=== PATIENT | female | born 1935 | race Hispanic/Latino ===

== ENCOUNTER 2017-03-16 14:50 | Inpatient (IN) | payer MEDICARE, BC ==
[2017-03-16 15:47] VITALS: BMI 27.4
--- NOTE | 2017-03-16 15:51 | ED PDOC ---
Arrival/HPI - General Chief Complaint: Altered Mental Status Time Seen by Provider: 03/16/17 15:18 Historian: Patient, Spouse, Family - History of Present Illness Narrative History of Present Illness (Text): 03/16/17 15:47 82 year old female, whose history includes diabetes, presents to the Emergency department due to altered mental status beginning approximately 2 days ago. At baseline, patient is normally functioning, can ambulate on her own, and is talkative; however, two days age, spouse noticed the patient stop ambulating, stop eating, and experience a general mental status change. Today, the spouse noticed a tremor in the patient's hand and called emergency services. At this time, the patient is unaware why she was brought in to the Emergency department ; she is under the impression she was brought in for elevated blood pressure. As per spouse, patient has not hit her head or experienced any other trauma. Time/Duration: < week (2 day) Symptom Onset: Gradual Symptom Course: Unchanged Activities at Onset: Rest Context: Home Past Medical History - Provider Review Nursing Documentation Reviewed: Yes - Cardiac Hx Hypertension: Yes - Pulmonary Hx Respiratory Disorders: (unsure) - Neurological Hx Neurological Disorder: (unsure) - HEENT Hx HEENT Disorder: (unsure) - Renal Hx Renal Disorder: (unsure) - Endocrine/Metabolic Hx Endocrine Disorders: Yes Hx Diabetes Mellitus Type 2: Yes - Hematological/Oncological Hx Blood Disorders: (unsure) - Integumentary Hx Dermatological Disorder: (unsure) - Musculoskeletal/Rheumatological Hx Musculoskeletal Disorders: (unsure) - Gastrointestinal Hx Gastrointestinal Disorders: (unsure) - Genitourinary/Gynecological Hx Genitourinary Disorders: (unsure) - Psychiatric Hx Psychophysiologic Disorder: (unsure) Hx Substance Use: No Family/Social History - Physician Review Nursing Documentation Reviewed: Yes Family/Social History: Unknown Family HX Smoking Status: Unknown If Ever Smoked Hx Alcohol Use: No Hx Substance Use: No Allergies/Home Meds Allergies/Adverse Reactions: Allergies Penicillins Allergy (Verified 03/16/17 15:33) RASH Sulfa (Sulfonamide Antibiotics) Allergy (Verified 03/16/17 15:33) RASH Home Medications: Home Meds Medication Instructions Recorded Confirmed Hydrochlorothiazide/Valsarta 1 tab PO DAILY 02/02/13 03/16/17 [Diovan Hct 12.5 mg-160 mg] Levothyroxine Sodium 25 mcg PO DAILY 02/02/13 03/16/17 [Levothyroxine Sodium] Metformin Hydrochloride [Metformin] 500 mg PO BID 02/02/13 03/16/17 Omeprazole [Omeprazole] 20 mg PO DAILY 02/02/13 03/16/17 Rosuvastatin Calcium [Crestor] 10 mg PO DAILY 02/02/13 03/16/17 Review of Systems - Physician Review All systems were reviewed & negative as marked: Yes - Review of Systems Constitutional: absent: Fevers Respiratory: absent: Cough Neurological: Other (mental status change) Physical Exam Vital Signs Reviewed: Yes Vital Signs Temp Pulse Resp BP Pulse Ox 03/16/17 17:15 77 18 143/74 93 L 03/16/17 15:23 98.3 F 78 18 153/81 H 92 L Temperature: Afebrile Blood Pressure: Hypertensive Pulse: Regular Respiratory Rate: Normal Appearance: Positive for: Well-Appearing, Non-Toxic, Comfortable Pain Distress: None Mental Status: Positive for: Alert and Oriented X 3 (patient is unaware of why she is in the Emergency department) - Systems Exam Head: Present: Atraumatic, Normocephalic Pupils: Present: PERRL Extroacular Muscles: Present: EOMI Conjunctiva: Present: Normal Mouth: Present: Moist Mucous Membranes Neck: Present: Normal Range of Motion Respiratory/Chest: Present: Clear to Auscultation, Good Air Exchange. No: Respiratory Distress, Accessory Muscle Use Cardiovascular: Present: Regular Rate and Rhythm, Normal S1, S2. No: Murmurs Abdomen: Present: Normal Bowel Sounds. No: Tenderness, Distention, Peritoneal Signs Back: Present: Normal Inspection Upper Extremity: Present: Normal Inspection. No: Cyanosis, Edema Lower Extremity: Present: Normal Inspection. No: Edema Neurological: Present: GCS=15, CN II-XII Intact, Speech Normal, Other (left sided oral facial droop) Skin: Present: Warm, Dry, Normal Color. No: Rashes Psychiatric: Present: Alert, Oriented x 3, Normal Insight, Normal Concentration Medical Decision Making ED Course and Treatment: 03/16/17 15:52 Impression: 82 year old female presents to the Emergency department due to altered mental status. Plan: -- Head CT without contrast -- Chest xray -- EKG -- Urinalysis -- Urine culture -- Labs -- IV fluids -- Reassess and disposition Progress Notes: - Lab Interpretations Lab Results: 03/16/17 16:25 03/16/17 16:25 Lab Results 03/16/17 17:00: Urine Opiates Screen Negative, Urine Methadone Screen Negative, Ur Barbiturates Screen Negative, Ur Phencyclidine Scrn Negative, Ur Amphetamines Screen Negative, U Benzodiazepines Scrn Negative, U Oth Cocaine Metabols Negative, U Cannabinoids Screen Negative 03/16/17 17:00: Urine Color Yellow, Urine Appearance Clear, Urine pH 6.0, Ur Specific [place] >= 1.030, Urine Protein 100 H, Urine Glucose (UA) Negative, Urine Ketones 15 H, Urine Blood Negative, Urine Nitrate Negative, Urine Bilirubin Small H, Urine Urobilinogen 1.0 H, Ur Leukocyte Esterase Negative, Urine RBC 0 - 2, Urine WBC 2 - 5, Ur Epithelial Cells 3 - 4, Amorphous Sediment Moderate, Urine Bacteria Large 03/16/17 16:30: Free T4 1.15, Total T3 1.11, TSH 3rd Generation 2.95 03/16/17 16:25: Influenza Typ A,B (EIA) Negative for flu a/b 03/16/17 16:25: Sodium 142, Potassium 4.1, Chloride 102, Carbon Dioxide 27, Anion Gap 17, BUN 14, Creatinine 0.6 L, Est GFR ( Amer) > 60, Est GFR ( Non-Af Amer) > 60, Random Glucose 143 H, Calcium 9.7, Magnesium 1.7, Total Bilirubin 0.8, AST 16, ALT 25, Alkaline Phosphatase 73, Lactate Dehydrogenase 419, Total Creatine Kinase < 20 L, Troponin I < 0.01, Total Protein 7.5, Albumin 4.2, Globulin 3.4, Albumin/Globulin Ratio 1.2 03/16/17 16:25: PT 11.8, INR 1.03, APTT 29.3 03/16/17 16:25: WBC 13.5 H D, RBC 4.69, Hgb 14.2, Hct 45.0, MCV 95.9, MCH 30.3, MCHC 31.6, RDW 13.8, Plt Count 288, MPV 11.0, Gran % 83.1 H, Lymph % (Auto) 11.3 L, [place] % (Auto) 5.3, Eos % (Auto) 0.1 L, Baso % (Auto) 0.2, Gran # 11.24 H , Lymph # 1.5, [place] # 0.7 H, Eos # 0.0, Baso # 0.03 - RAD Interpretation Radiology Orders: 03/16/17 15:37 CHEST PORTABLE [RAD] Stat 03/16/17 15:44 HEAD W/O CONTRAST [CT] Stat - EKG Interpretation EKG Interpretation (Text): 03/16/17 16:03 EKG: Ordered, reviewed, and independently interpreted the EKG. Rate : 77 BPM Rhythm : NSR Interpretation : Left bundle branch block Interpreted by ED Physician: Yes Type: 12 lead EKG - Medication Orders Current Medication Orders: Ciprofloxacin (Cipro 400mg/200ml Dsw) 400 mg in 200 mls @ 133.3 mls/hr IVPB STAT STA PRN Reason: Protocol Stop: 03/16/17 20:20 Sodium Chloride (Sodium Chloride 0.9%) 1,000 mls @ 250 mls/hr IV .Q4H ONE Stop: 03/16/17 22:50 - Scribe Statement The provider has reviewed the documentation as recorded by the Scribe Ken Riggs All medical record entries made by the Scribe were at my direction and personally dictated by me. I have reviewed the chart and agree that the record accurately reflects my personal performance of the history, physical exam, medical decision making, and the department course for this patient. I have also personally directed, reviewed, and agree with the discharge instructions and disposition. Disposition/Present on Arrival - Present on Arrival Any Indicators Present on Arrival: No History of DVT/PE: No History of Uncontrolled Diabetes: No Urinary Catheter: No History of Decub. Ulcer: No History Surgical Site Infection Following: None - Disposition Have Diagnosis and Disposition been Completed?: Yes Diagnosis: Weakness, UTI (urinary tract infection) Disposition: HOSPITALIZED Disposition Time: 18:30 Condition: FAIR Discharge Instructions (ExitCare): Weakness (ED) Referrals: Adriana Moore, [Primary Care Provider] - Follow up with primary Forms: [employer] (Bahamian)
[2017-03-16 17:13] LABS: HEMOGLOBIN 14.2 g/dL (12.0-16.0); MEAN CELL VOLUME 95.9 fl (80.0-105.0); MEAN CORPUSCULAR HEMOGLOBIN 30.3 pg (25.0-35.0); MEAN CORPUSCULAR HGB CONC 31.6 g/dl (31.0-37.0); RBC 4.69 [, 10^6/uL] (3.5-6.1); RED CELL DISTRIBUTION WIDTH 13.8 % (11.5-14.5); WHITE BLOOD COUNT 13.5 [, 10^3/ul] (4.5-11.0)
[2017-03-16 17:14] LABS: BASO # 0.03 [, K/mm3] (0.0-2.0); BASO % 0.2 % (0.0-3.0); EOS % 0.1 % (1.5-5.0); GRAN # 11.24 (1.4-6.5); GRAN % 83.1 % (50.0-68.0); LYMPH # 1.5 (1.2-3.4); LYMPH % 11.3 % (22.0-35.0); MONO # 0.7 (0.1-0.6); MONO % 5.3 % (1.0-6.0)
[2017-03-16 17:20] LABS: ALB/GLOB RATIO 1.2 (1.1-1.8); ALBUMIN 4.2 g/dL (3.0-4.8); ALT/SGPT 25 U/L (7-56); AST/SGOT 16 U/L (14-36); BLOOD UREA NITROGEN 14 mg/dL (7-21); CALCIUM 9.7 mg/dL (8.4-10.5); GFR AFRICAN-AMERICAN > 60; GFR NON-AFRICAN AMERICAN > 60; MAGNESIUM 1.7 mg/dL (1.7-2.2)
--- NOTE | 2017-03-16 17:22 | CT ---
PROCEDURE: CT HEAD WITHOUT CONTRAST. HISTORY: r/o ICH COMPARISON: None available. TECHNIQUE: Axial computed tomography images were obtained through the head/brain without intravenous contrast. Radiation dose: Total exam DLP = 997 mGy-cm. This CT exam was performed using one or more of the following dose reduction techniques: Automated exposure control, adjustment of the mA and/or kV according to patient size, and/or use of iterative reconstruction technique. FINDINGS: HEMORRHAGE: No intracranial hemorrhage. BRAIN: No mass effect or edema. No atrophy or chronic microvascular ischemic changes. VENTRICLES: Unremarkable. No hydrocephalus. CALVARIUM: Unremarkable. PARANASAL SINUSES: Unremarkable as visualized. No significant inflammatory changes. MASTOID AIR CELLS: Unremarkable as visualized. No inflammatory changes. OTHER FINDINGS: None. IMPRESSION: No acute finding
[2017-03-16 17:27] LABS: URINE BILIRUBIN SMALL (NEGATIVE); URINE BLOOD NEGATIVE (NEGATIVE); URINE GLUCOSE (UA) NEGATIVE (NEGATIVE); URINE LEUKOCYTE ESTERASE NEGATIVE Leu/uL (NEGATIVE); URINE NITRATE NEGATIVE (NEGATIVE); URINE PROTEIN 100 mg/dL (<30 mg/dL)
[2017-03-16 17:29] LABS: URINE APPEARANCE CLEAR (CLEAR); URINE COLOR YELLOW (YELLOW)
[2017-03-16 17:29] LABS: TROPONIN I < 0.01 ng/mL
[2017-03-16 17:37] LABS: INR 1.03 (0.93-1.08); PROTHROMBIN TIME 11.8 SECONDS (9.4-12.5)
[2017-03-16 17:38] LABS: PARTIAL THROMBOPLASTIN TIME 29.3 Seconds (25.1-36.5)
[2017-03-16 17:44] LABS: BARBITURATES, UR NEGATIVE (NEGATIVE); BENZODIAZEPINES, UR NEGATIVE (NEGATIVE); OPIATES, UR NEGATIVE (NEGATIVE); PHENCYCLIDINE, UR NEGATIVE (NEGATIVE)
[2017-03-16 18:05] LABS: FREE T4 1.15 ng/dL (0.78-2.19)
[2017-03-16 18:14] LABS: URINE AMORPHOUS SEDIMENT MODERATE; URINE BACTERIA LARGE (NEG); URINE RBC 0 - 2 /hpf (0-2)
[2017-03-16 18:19] LABS: T3 1.11 ng/mL (0.97-1.69)
[2017-03-16] MEDS ORDERED: Ciprofloxacin 400mg/200ml D5W 400 MG/200 ML BAG IVPB STA (18:50)
[2017-03-16] MEDS ORDERED: Sodium Chloride 0.9% 1,000 ML IV ONE (18:51)
--- NOTE | 2017-03-16 21:48 | CP.PCM.HP ---
<Brandon Livingston - Last Filed: 03/16/17 21:40> History of Present Illness - History of Present Illness History of Present Illness: cc: altered mental status HPI: Patient is a 82yo female with past medical history of diabetes mellitus type 2, hypertension, hyperlipidemia, hypothyroidism and GERD that presents accompanied by family with reports of increased lethargy, weakness and altered mental status. Per patients son, over the course of the last couple months family had noticed a change in her personality and having become more forgetful as of late. Additionally, over the last several days patient had been bed bound , unable to care for herself and has had a lack of appetite. Family reports that she had been to her PMD, Dr. Head several weeks prior and was reportedly treated for a UTI. She had also been scheduled to see Dr. Wan ( hematology/oncology) for workup of possible leukemia. Family reported that when they came to visit today she appeared confused, weak and lethargic which prompted their visit to the emergency room. Patient denied chest pain, palpitations, SOB, abdominal pain, nausea, vomiting, fever, chills, cough. 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 Head Present on Admission - Present on Admission Any Indicators Present on Admission: No Past Patient History - Past Social History Smoking Status: Unknown If Ever Smoked - CARDIAC Hx Hypertension: Yes - PULMONARY Hx Respiratory Disorders: (unsure) - NEUROLOGICAL Hx Neurological Disorder: (unsure) - HEENT Hx HEENT Problems: (unsure) - RENAL Hx Chronic Kidney Disease: (unsure) - ENDOCRINE/METABOLIC Hx Endocrine Disorders: Yes Hx Diabetes Mellitus Type 2: Yes - HEMATOLOGICAL/ONCOLOGICAL Hx Blood Disorders: (unsure) - INTEGUMENTARY Hx Dermatological Problems: (unsure) - MUSCULOSKELETAL/RHEUMATOLOGICAL Hx Musculoskeletal Disorders: (unsure) - GASTROINTESTINAL Hx Gastrointestinal Disorders: (unsure) - GENITOURINARY/GYNECOLOGICAL Hx Genitourinary Disorders: (unsure) - PSYCHIATRIC Hx Psychophysiologic Disorder: (unsure) Hx Substance Use: No - SURGICAL HISTORY Hx Surgeries: (unsure) Meds Allergies/Adverse Reactions: Allergies Allergy/AdvReac Type Severity Reaction Status Date / Time Penicillins Allergy RASH Verified 03/16/17 15:33 Sulfa (Sulfonamide Allergy RASH Verified 03/16/17 15:33 Antibiotics) Physical Exam - Constitutional Appears: No Acute Distress, Unkempt, Confused - Head Exam Head Exam: ATRAUMATIC, NORMOCEPHALIC - Eye Exam Eye Exam: EOMI, PERRL - ENT Exam ENT Exam: Mucous Membranes Moist - Neck Exam Neck exam: Positive for: Normal Inspection. Negative for: Tenderness - Respiratory Exam Respiratory Exam: absent: Accessory Muscle Use, Rales, Rhonchi, Wheezes - Cardiovascular Exam Cardiovascular Exam: RRR, +S1, +S2. absent: Tachycardia, Gallop, JVD, Rubs - GI/Abdominal Exam GI & Abdominal Exam: Soft. absent: Distended, Firm, Guarding, Rebound, Rigid, Tenderness - Extremities Exam Extremities exam: Negative for: calf tenderness, pedal edema, tenderness - Neurological Exam Neurological exam: Alert, CN II-XII Intact Additional comments: awake, alert, oriented to person and place EOMI PERRL CN2-12 grossly intact motor function in RUE and RLE 5/5 motor function in LUE and LLE ~4/5 left-sided facial droop decreased sensation on the left side of the face gait deferred - Skin Skin Exam: Dry, Intact, Normal Color, Warm Results - Vital Signs Recent Vital Signs: Last Vital Signs Temp 98.3 F 03/16/17 15:23 Pulse 78 03/16/17 19:50 Resp 18 03/16/17 19:50 BP 156/69 H 03/16/17 19:50 Pulse Ox 94 L 03/16/17 19:50 - Labs Result Diagrams: 03/16/17 16:25 03/16/17 16:25 Assessment & Plan - Assessment and Plan (Free Text) Plan: 82yo female with history of DM type 2, hypertension, hyperlipidemia, hypothyroidism and GERD presents with altered mental status secondary to dementia vs CVA vs delirium due to UTI 1. Altered mental status -Likely secondary to dementia vs delirium however workup pending -CT Head revealed no acute intracranial abnormalities -CXR revealed no active disease -EKG reviewed; NSR with LBBB unchanged from prior EKG -B12, Folate, RPR pending -Leukocytosis of 13.5, afebrile -IVF hydration -Procalcitonin pending -Urine culture pending -TSH within normal limits -Urine drug screen negative -Urinalysis negative -Neurochecks q4h -Fall precautions -PT evaluation -Neurology consulted - Dr. Hart -EEG pending per neurology recommendations 2. Hypertension -Continue home antihypertensive 3. Hyperlipidemia -Continue home statin 4. Hypothyroidism -Continue home synthroid 5. DM type 2 -Consistent carb diet -Fingersticks ACHS -Humalog ISS low dose 6. GI/DVT prophylaxis -Protonix/Heparin SC Patient seen and case discussed/reviewed with attending, Dr. Yun <David Yun Q - Last Filed: 03/17/17 04:51> Results - Vital Signs Recent Vital Signs: Last Vital Signs Temp 98.3 F 03/16/17 15:23 Pulse 73 03/16/17 22:05 Resp 17 03/16/17 22:05 BP 136/70 03/16/17 22:05 Pulse Ox 95 03/16/17 22:05 - Labs Result Diagrams: 03/16/17 16:25 03/16/17 16:25 Labs: Laboratory Results - last 24 hr 03/16/17 22:34 POC Glucose (mg/dL) 134 H Attending/Attestation - Attestation I have personally seen and examined this patient.: Yes I have fully participated in the care of the patient.: Yes I have reviewed all pertinent clinical information: Yes Notes (Text): 03/17/17 04:48 I agree with the above mentioned note and exam by the resident with the addition of the followin82 y/o female with a PMHx as listed above is brought in to the ED by her family due to complaints of altered mentation. Family reports that over the last several months, her behavior has been changing compared to her baseline. She has been becoming more forgetful, unable to care for herself as she used to previously, having increasing difficulty with ambulation, increasing mechanical slip and falls, as well as even defecating on the sofa yesterday. Patient is admitted to rule out delirium vs dementia.
[2017-03-16] MEDS: Insulin Lispro (humaLOG) LOW Coverage SC SCH (22:41)
[2017-03-17 05:59] LABS: BASO # 0.02 [, K/mm3] (0.0-2.0); BASO % 0.2 % (0.0-3.0); EOS % 0.3 % (1.5-5.0); GRAN # 10.86 (1.4-6.5); GRAN % 83.2 % (50.0-68.0); HEMOGLOBIN 12.9 g/dL (12.0-16.0); LYMPH # 1.5 (1.2-3.4); LYMPH % 11.6 % (22.0-35.0); MEAN CELL VOLUME 96.2 fl (80.0-105.0); MEAN CORPUSCULAR HEMOGLOBIN 30.6 pg (25.0-35.0); MEAN CORPUSCULAR HGB CONC 31.9 g/dl (31.0-37.0); MEAN PLATELET VOLUME 10.8 fl (7.0-11.0); MONO # 0.6 (0.1-0.6); MONO % 4.7 % (1.0-6.0); RBC 4.21 [, 10^6/uL] (3.5-6.1); RED CELL DISTRIBUTION WIDTH 13.7 % (11.5-14.5); WHITE BLOOD COUNT 13.1 [, 10^3/ul] (4.5-11.0)
[2017-03-17 06:04] LABS: ALB/GLOB RATIO 1.1 (1.1-1.8); ALBUMIN 3.6 g/dL (3.0-4.8); ALT/SGPT 26 U/L (7-56); AST/SGOT 16 U/L (14-36); BLOOD UREA NITROGEN 13 mg/dL (7-21); GFR AFRICAN-AMERICAN > 60; GFR NON-AFRICAN AMERICAN > 60
[2017-03-17] MEDS: Insulin Lispro (humaLOG) LOW Coverage SC SCH ×4 (08:03→22:53)
[2017-03-17] MEDS: Levothyroxine 25 MCG TAB PO SCH (08:24)
[2017-03-17] MEDS: Aztreonam 1 Gm in NS 100mL 100 ML IVPB SCH ×2 (08:36→15:00)
--- NOTE | 2017-03-17 08:48 | RAD ---
HISTORY: r/o infiltrate COMPARISON: None FINDINGS: LUNGS: The lungs are clear. PLEURA: No significant pleural effusion identified, no pneumothorax apparent. CARDIOVASCULAR: Normal. OSSEOUS STRUCTURES: No significant abnormalities. VISUALIZED UPPER ABDOMEN: Normal. OTHER FINDINGS: None. IMPRESSION: No active pulmonary disease.
[2017-03-17] MEDS ORDERED: [UNRECOGNIZED DRUG - OTHER] PO SCH (10:00)
[2017-03-17] MEDS ORDERED: LEVOTHYROXINE SODIUM 25 MCG PO SCH (10:00)
[2017-03-17] MEDS ORDERED: Pneumococcal 23-Valent Vaccine IM ONE (11:30)
[2017-03-17] MEDS ORDERED: Influenza Vaccine 60 mcg/0.5 mL SYR (4YR UP) IM ONE (11:30)
--- NOTE | 2017-03-17 11:49 | CT ---
PROCEDURE: CT HEAD WITHOUT CONTRAST. HISTORY: code stroke COMPARISON: 03/16/2017. TECHNIQUE: Axial computed tomography images were obtained through the head/brain without intravenous contrast. Radiation dose: Total exam DLP = 790.95 mGy-cm. This CT exam was performed using one or more of the following dose reduction techniques: Automated exposure control, adjustment of the mA and/or kV according to patient size, and/or use of iterative reconstruction technique. FINDINGS: HEMORRHAGE: No intracranial hemorrhage. BRAIN: There is an asymmetric low-attenuation area in the right anterior limb of internal capsule and caudate head new since the prior examination. There is no mass, mass effect or abnormal extra-axial fluid collection.There are coarse atherosclerotic calcifications in the cavernous carotid arteries. VENTRICLES: There is mild age-related global parenchymal volume loss and proportionate enlargement of the ventricles and cortical sulci. CALVARIUM: The skull base and calvarium are normal. PARANASAL SINUSES: There is chronic pansinusitis. There is fluid in the sphenoid sinus. MASTOID AIR CELLS: There is fluid in bilateral mastoid air cells. OTHER FINDINGS: None. IMPRESSION: Focal asymmetric low density in the anterior limb of internal capsule and caudate head, new since the prior examination may represent acute stroke. Correlation with MRI is recommended. Fluid in the sphenoid sinus may represent acute sinusitis in the appropriate clinical setting. Important findings were discussed with nurse Alicea on the floor on 03/17/2017 at 11:45 a.m.
--- NOTE | 2017-03-17 12:26 | CT ---
PROCEDURE: CTA HEAD AND NECK WITH CONTRAST HISTORY: Stroke COMPARISON: Noncontrast head CT performed earlier the same day. TECHNIQUE: Initial noncontrast head CT was performed. Subsequently, CT angiogram of the head and neck were performed after the intravenous administration of 80 mL of Omnipaque 350. Contiguous 1.5mm thick images were obtained in the axial plane of the neck. 2-D coronal and sagittal MPR images were obtained. Imaging postprocessing was performed with 3-D images also obtained. A delayed contrast head CT was also obtained. This CT exam was performed using one or more of the following dose reduction techniques: Automated exposure control, adjustment of the mA and/or kV according to patient size, and/or use of iterative reconstruction technique. Contrast dose: 150 mL Omnipaque 350 Radiation dose: Total exam DLP = 404.05 mGy-cm. FINDINGS: HEAD: There are coarse atherosclerotic calcifications in the cavernous segments of the carotid arteries. Right: There is a 5 mm filling defect in the distal M1 segment with attenuation of the M2 branches. The intracranial internal carotid artery, and anterior cerebral arteries are widely patent. Left: The intracranial internal carotid artery, and anterior and middle cerebral arteries are widely patent. Posterior circulation: The visualized intracranial vertebral arteries, basilar artery and posterior cerebral arteries are widely patent. There is no intracranial saccular aneurysm. There is no abnormal enhancement on the postcontrast CT. NECK: There is a three vessel aortic arch. There is no stenosis at the origins of the great vessels at the level of the aortic arch. There are mild atherosclerotic calcifications at the carotid bifurcations and proximal internal carotid arteries. Right Carotid: On the right, the common carotid, internal carotid and external carotid arteries are widely patent. There is no hemodynamically significant stenosis in the internal carotid arteries by NASCET criteria. Left Carotid: On the left, the common carotid, internal carotid and external carotid arteries are widely patent.There is no hemodynamically significant stenosis in the internal carotid arteries by NASCET criteria. The vertebral arteries are widely patent. The left vertebral artery is dominant, an anatomic variant. IMPRESSION: 1. Approximately 5 mm intraluminal filling defect in the distal right M1 segment most compatible with an intraluminal thrombus with asymmetric attenuation of sylvian branches. 2. Normal caliber and widely patent anterior cerebral, left middle cerebral, posterior cerebral and vertebral arteries. 3.No evidence of hemodynamically significant stenosis in the internal carotid arteries by NASCET criteria Critical findings were discussed with Dr. Valdez Gooden on 03/17/2017 at 12:15 PA.
[2017-03-17] MEDS ORDERED: Eptifibatide 0.75 mg/ml 75 MG/100 ML BOTTLE IV SCH (12:45)
[2017-03-17] MEDS ORDERED: Eptifibatide 20 mg/10mL Inj IVP ONE ×2 (12:51)
[2017-03-17 13:12] LABS: FOLATE 16.1 ng/mL
--- NOTE | 2017-03-17 13:14 | CP.PCM.CON ---
<Grazyna Cotton - Last Filed: 03/17/17 13:09> History of Present Illness - History of Present Illness History of Present Illness: ICU Consult note for Vida Rashid PGY2 Reason for consult: Code stroke This is an 82yo Female with past medical history of DM2, HTN, HLD, hypothyroidism and GERD who was admitted for AMS. Patient was found to have UTI. This am, patient was found to be weak and flaccid on her L upper extremity. Code stroke was called. CT showed CVA in R basal ganglia, caudate and ant. internal capsule compatible with R MCA CVA. Neuro was notified. Since it is unknown when patient was last seen without deficits, TPA was not given. Patient was seen and examined at bedside. She was A&O x 3 and denies chest pain , shortness of breath, nausea/vomiting/diarrhea, numbness/tingling, fever or chills. She reports feeling thirsty, but denies weakness. Past medical history: DM2, HTN, HLD, hypothyroidism and GERD Past surgical history: Denies Home meds: As per MAR Allergies: Penicillin, Sulfa Social history: Former smoker (quit 10yrs ago), denies alcohol or drug use. 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 Huerta Review of Systems - Review of Systems Review of Systems: 12 point ROS as per HPI reviewed and are otherwise negative Past Patient History - Past Social History Smoking Status: Former Smoker - CARDIAC Hx Hypercholesterolemia: Yes Hx Hypertension: Yes Other/Comment: stress test 02/02/13 - PULMONARY Hx Respiratory Disorders: Yes Other/Comment: loose cough - NEUROLOGICAL Other/Comment: left facial droop, left side flaccid, tongue drooping to left side, new as of 2 1/2 days ago - HEENT Hx HEENT Problems: (unsure) - RENAL Hx Chronic Kidney Disease: (renal disease) - ENDOCRINE/METABOLIC Hx Endocrine Disorders: Yes Hx Diabetes Mellitus Type 2: Yes Hx Hypothyroidism: Yes - HEMATOLOGICAL/ONCOLOGICAL Other/Comment: pt has appt with dr fonseca on 03/18/17 dx cll referral by dr rcouch - INTEGUMENTARY Other/Comment: long thick fingernails and toenails and dry scaley skin to feet, dry skin to legs, r cw area of dry brown skin 1cm round - MUSCULOSKELETAL/RHEUMATOLOGICAL Hx Falls: Yes (past) - GASTROINTESTINAL Hx Gastrointestinal Disorders: Yes (gi bleed) Hx Gastroesophageal Reflux: Yes - GENITOURINARY/GYNECOLOGICAL Hx Urinary Tract Infection: Yes (tx by dr crouch few wks ago) Other/Comment: mammo 04/2013 - PSYCHIATRIC Hx Substance Use: No - SURGICAL HISTORY Hx Surgeries: No (none as per son kenton) Meds Allergies/Adverse Reactions: Allergies Allergy/AdvReac Type Severity Reaction Status Date / Time Penicillins Allergy RASH Verified 03/16/17 15:33 Sulfa (Sulfonamide Allergy RASH Verified 03/16/17 15:33 Antibiotics) - Medications Medications: Current Medications Atorvastatin Calcium (Lipitor) 40 mg PO DAILY [facility] Last Admin: 03/17/17 12:58 Dose: Not Given Heparin Sodium (Porcine) (Heparin) 5,000 units SC Q12 TERESA PRN Reason: Protocol Last Admin: 03/17/17 11:16 Dose: Not Given Aztreonam (Azactam 1 Gm) 100 mls @ 100 mls/hr IVPB Q8 TERSEA PRN Reason: Protocol Stop: 03/17/17 14:59 Last Admin: 03/17/17 08:36 Dose: 100 mls/hr Eptifibatide (Integrilin) 75 mg in 100 mls @ 5.987 mls/hr IV .[id number] TERESA; 1 MCG/KG/MIN PRN Reason: Protocol Insulin Human Lispro (Humalog Low) 0 units SC ACHS TERESA PRN Reason: Protocol Last Admin: 03/17/17 12:57 Dose: Not Given Levothyroxine Sodium (Synthroid) 25 mcg PO ACB [facility] Last Admin: 03/17/17 08:24 Dose: Not Given Non-Formulary Medication (Hydrochlorothiazide/Valsarta [Diovan Hct 12.5 Mg-160 Mg]) 1 tab PO DAILY [facility] Last Admin: 03/17/17 12:57 Dose: Not Given Pantoprazole Sodium (Protonix Inj) 40 mg IVP DAILY [facility] Last Admin: 03/17/17 11:18 Dose: 40 mg Physical Exam - Constitutional Appears: No Acute Distress - Head Exam Head Exam: ATRAUMATIC, NORMAL INSPECTION, NORMOCEPHALIC - Eye Exam Eye Exam: PERRL Pupil Exam: Miosis, PERRL - ENT Exam ENT Exam: Mucous Membranes Dry - Respiratory Exam Respiratory Exam: Clear to Auscultation Bilateral, NORMAL BREATHING PATTERN. absent: Rales, Rhonchi, Wheezes - Cardiovascular Exam Cardiovascular Exam: REGULAR RHYTHM, +S1, +S2. absent: Gallop, Rubs, Systolic Murmur - GI/Abdominal Exam GI & Abdominal Exam: Normal Bowel Sounds, Soft. absent: Rebound, Rigid, Tenderness - Extremities Exam Extremities exam: Positive for: normal inspection. Negative for: pedal edema - Neurological Exam Neurological exam: Alert, Oriented x3 - Expanded Neurological Exam Expanded Patient oriented to: person, place, time Cranial nerves: EOM's Intact: Normal, Facial Sensation: Abnormal Left Sensory exam: Lower Extremity Light Touch: Normal, Upper Extremity Light Touch: Abnormal Left Coma Scale Eye Opening: SPONTANEOUS Coma Scale Motor Response: OBEYS COMMANDS Coma Scale Verbal: Oriented Coma Scale Total: 15 - Psychiatric Exam Psychiatric exam: Normal Affect, Normal Mood - Skin Skin Exam: Dry, Warm Results - Vital Signs Recent Vital Signs: Last Vital Signs Temp 101 F H 03/17/17 11:08 Pulse 67 03/17/17 11:08 Resp 17 03/17/17 11:08 BP 160/95 H 03/17/17 11:08 Pulse Ox 97 03/17/17 08:20 - Labs Result Diagrams: 03/17/17 05:30 03/17/17 05:30 Labs: Laboratory Results - last 24 hr 03/16/17 03/17/17 03/17/17 22:34 01:17 05:30 WBC 13.1 H RBC 4.21 Hgb 12.9 Hct 40.5 MCV 96.2 MCH 30.6 MCHC 31.9 RDW 13.7 Plt Count 268 MPV 10.8 Gran % 83.2 H Lymph % (Auto) 11.6 L [place] % (Auto) 4.7 Eos % (Auto) 0.3 L Baso % (Auto) 0.2 Gran # 10.86 H Lymph # 1.5 [place] # 0.6 Eos # 0.0 Baso # 0.02 Sodium Potassium Chloride Carbon Dioxide Anion Gap BUN Creatinine Est GFR ( Amer) Est GFR (Non-Af Amer) POC Glucose (mg/dL) 134 H 140 H Random Glucose Calcium Total Bilirubin AST ALT Alkaline Phosphatase Total Protein Albumin Globulin Albumin/Globulin Ratio 01/03/17/17 03/17/17 05:30 07:31 12:23 WBC RBC Hgb Hct MCV MCH MCHC RDW Plt Count MPV Gran % Lymph % (Auto) [place] % (Auto) Eos % (Auto) Baso % (Auto) Gran # Lymph # [place] # Eos # Baso # Sodium 140 Potassium 3.3 L Chloride 105 Carbon Dioxide 23 Anion Gap 16 BUN 13 Creatinine 0.6 L Est GFR ( Amer) > 60 Est GFR (Non-Af Amer) > 60 POC Glucose (mg/dL) 125 H 128 H Random Glucose 141 H Calcium 9.0 Total Bilirubin 0.8 AST 16 ALT 26 Alkaline Phosphatase 61 Total Protein 6.9 Albumin 3.6 Globulin 3.3 Albumin/Globulin Ratio 1.1 Assessment & Plan - Assessment and Plan (Free Text) Assessment: This is an 82yo Female with past medical history of DM2, HTN, HLD, hypothyroidism and GERD who was admitted for AMS. Patient was found to have UTI. Patient was found weak on her L side with R gaze preference. Code stroke was called and was found to have R CVA. Plan: Neuro: R CVA of MCA CTA showed 5mm of intraluminal filling defect in distal R M1 segment compatible with intraluminal thrombus Neuro consulted- recommend Integrilin drip and repeat CT head in AM. Pt can be started on ASA and Plavic tomorrow Neurology spoke to Neurosurg for possible thrombectomy Pt not candidate for tPA due to unknown when pt last seen Neuro checks Physical therapy CV: Hx of HTN Permissive HTN in setting of CVA Hold home BP meds Hydralazine prn SBP >200 Cardio on consult Resp: Pt comfortable on NC Maintain spO2>90% Protective lung ventilation strategy HOB elevated, aspiration precaution GI: NPO Speech and swallow eval Heme: Hgb stable- no overt signs of bleeding Continue to monitor Nephro: Continue to monitor renal function and electrolytes and replace as needed ID: Leukocytosis, febrile (Tmax 101)- can be secondary to CVA urine culture negative ID consulted Pt on Aztreonam PCT pending Endo: Pt has hx of Hypothyroidism TSH within normal limits Hold Synthroid 25mcg until pt cleared for Po intake Gi ppx: Protonix DVT ppx: On integrilin drip Case seen, discussed and reviewed with attending. Vida Cotton PGY2 - Date & Time Date: 03/17/17 Time: 13:39 <Brent Reynolds - Last Filed: 03/17/17 14:54> Meds - Medications Medications: Current Medications Atorvastatin Calcium (Lipitor) 40 mg PO DAILY [facility] Last Admin: 03/17/17 12:58 Dose: Not Given Hydralazine HCl (Apresoline) 10 mg IVP Q6 PRN PRN Reason: Systolic Blood Pressure Aztreonam (Azactam 1 Gm) 100 mls @ 100 mls/hr IVPB Q8 TERESA PRN Reason: Protocol Stop: 03/17/17 14:59 Last Admin: 03/17/17 08:36 Dose: 100 mls/hr Eptifibatide (Integrilin) 75 mg in 100 mls @ 5.987 mls/hr IV .[id number] TERESA; 1 MCG/KG/MIN PRN Reason: Protocol Potassium Chloride (Potassium Chloride 10 Meq/100 Ml) 10 meq in 100 mls @ 100 mls/hr IVPB Q2H TERESA Stop: 03/17/17 16:14 Sodium Chloride (Sodium Chloride 0.9%) 1,000 mls @ 100 mls/hr IV .Q10H [facility] Insulin Human Lispro (Humalog Low) 0 units SC ACHS TERESA PRN Reason: Protocol Last Admin: 03/17/17 12:57 Dose: Not Given Levothyroxine Sodium (Synthroid) 25 mcg PO ACB [facility] Last Admin: 03/17/17 08:24 Dose: Not Given Non-Formulary Medication (Hydrochlorothiazide/Valsarta [Diovan Hct 12.5 Mg-160 Mg]) 1 tab PO DAILY [facility] Last Admin: 03/17/17 12:57 Dose: Not Given Pantoprazole Sodium (Protonix Inj) 40 mg IVP DAILY [facility] Last Admin: 03/17/17 11:18 Dose: 40 mg Results - Vital Signs Recent Vital Signs: Last Vital Signs Temp 101 F H 03/17/17 11:08 Pulse 67 03/17/17 11:08 Resp 17 03/17/17 11:08 BP 160/95 H 03/17/17 11:08 Pulse Ox 97 03/17/17 08:20 - Labs Result Diagrams: 03/17/17 05:30 03/17/17 05:30 Labs: Laboratory Results - last 24 hr 03/16/17 03/16/17 03/16/17 21:42 21:42 22:34 WBC RBC Hgb Hct MCV MCH MCHC RDW Plt Count MPV Gran % Lymph % (Auto) [place] % (Auto) Eos % (Auto) Baso % (Auto) Gran # Lymph # [place] # Eos # Baso # Sodium Potassium Chloride Carbon Dioxide Anion Gap BUN Creatinine Est GFR ( Amer) Est GFR (Non-Af Amer) POC Glucose (mg/dL) 134 H Random Glucose Calcium Total Bilirubin AST ALT Alkaline Phosphatase Total Protein Albumin Globulin Albumin/Globulin Ratio Vitamin B12 431 Folate 16.1 Procalcitonin < 0.05 L 03/17/17 03/17/17 03/17/17 01:17 05:30 05:30 WBC 13.1 H RBC 4.21 Hgb 12.9 Hct 40.5 MCV 96.2 MCH 30.6 MCHC 31.9 RDW 13.7 Plt Count 268 MPV 10.8 Gran % 83.2 H Lymph % (Auto) 11.6 L [place] % (Auto) 4.7 Eos % (Auto) 0.3 L Baso % (Auto) 0.2 Gran # 10.86 H Lymph # 1.5 [place] # 0.6 Eos # 0.0 Baso # 0.02 Sodium 140 Potassium 3.3 L Chloride 105 Carbon Dioxide 23 Anion Gap 16 BUN 13 Creatinine 0.6 L Est GFR ( Amer) > 60 Est GFR (Non-Af Amer) > 60 POC Glucose (mg/dL) 140 H Random Glucose 141 H Calcium 9.0 Total Bilirubin 0.8 AST 16 ALT 26 Alkaline Phosphatase 61 Total Protein 6.9 Albumin 3.6 Globulin 3.3 Albumin/Globulin Ratio 1.1 Vitamin B12 Folate Procalcitonin 03/17/17 03/17/17 07:31 12:23 WBC RBC Hgb Hct MCV MCH MCHC RDW Plt Count MPV Gran % Lymph % (Auto) [place] % (Auto) Eos % (Auto) Baso % (Auto) Gran # Lymph # [place] # Eos # Baso # Sodium Potassium Chloride Carbon Dioxide Anion Gap BUN Creatinine Est GFR ( Amer) Est GFR (Non-Af Amer) POC Glucose (mg/dL) 125 H 128 H Random Glucose Calcium Total Bilirubin AST ALT Alkaline Phosphatase Total Protein Albumin Globulin Albumin/Globulin Ratio Vitamin B12 Folate Procalcitonin Assessment & Plan - Assessment and Plan (Free Text) Plan: Patient seen and examined with resident, agree with note, with following additions exceptions: Patient is 82yo Female with PMHX of DM2, HTN, HLD, hypothyroidism and GERD who was admitted for AMS, found to have UTI. Patient was found weak on her L side with R gaze preference, code stroke was called and was found to have R CVA, not candidate for tPA as per neurology. CTA showed 5mm of intraluminal filling defect in distal R M1 segment compatible with intraluminal thrombusSeen by neurology, plan to transfer to MICU, start on integrillin drip for 14h, repeat CTH and then load with ASA, Plavix. Acute CVA UTI HTN HLD Hypothyroidism Recommend: - supp o2 as needed - follow up cultures, check procal - Rocephin IV - follow up neurology - Integrillin drip as per neurology - NPO - speech swallow eval, PT consult - ECHO - GI ppx - DVT ppx, SCDs - Monitor in MICU
--- NOTE | 2017-03-17 13:19 | CP.PCM.CON ---
History of Present Illness - History of Present Illness History of Present Illness: Mrs. Shields is an 82-year-old woman with a past medical history of hypertension, DM, hyperlipidemia, who was brought in yesterday with confusion and altered mental status and unknown last normal time. She gradually developed left side weakness. This morning, she was noted to have right gaze preference, and left arm flaccid paralysis and dense neglect of the left side. CT scan of the head showed caudate and basal ganglia infarcts. CTA of the head/ neck showed a right MCA, distal M1 occlusion. She was outside the 4.5 hour time window for IV tPA. I spoke with Dr. Foley, neurointerventionalist, and since the patient's last known time is unknown, she was not a good candidate for thrombectomy. The CT head showed that the infarct was advancing. She was unable to swallow, but we had decided on giving her antiplatelet therapy. Therefor, the decision was made to start Integrillin bolus and continue the drip while the patient is transferred to the ICU for close observation. Her current NIHSS= 12 Review of Systems - Review of Systems Systems not reviewed;Unavailable: Altered Mental Status Past Patient History - Past Social History Smoking Status: Former Smoker - CARDIAC Hx Hypercholesterolemia: Yes Hx Hypertension: Yes Other/Comment: stress test 02/02/13 - PULMONARY Hx Respiratory Disorders: Yes Other/Comment: loose cough - NEUROLOGICAL Other/Comment: left facial droop, left side flaccid, tongue drooping to left side, new as of 2 1/2 days ago - HEENT Hx HEENT Problems: (unsure) - RENAL Hx Chronic Kidney Disease: (renal disease) - ENDOCRINE/METABOLIC Hx Endocrine Disorders: Yes Hx Diabetes Mellitus Type 2: Yes Hx Hypothyroidism: Yes - HEMATOLOGICAL/ONCOLOGICAL Other/Comment: pt has appt with dr fonseca on 03/18/17 dx cll referral by dr crouch - INTEGUMENTARY Other/Comment: long thick fingernails and toenails and dry scaley skin to feet, dry skin to legs, r cw area of dry brown skin 1cm round - MUSCULOSKELETAL/RHEUMATOLOGICAL Hx Falls: Yes (past) - GASTROINTESTINAL Hx Gastrointestinal Disorders: Yes (gi bleed) Hx Gastroesophageal Reflux: Yes - GENITOURINARY/GYNECOLOGICAL Hx Urinary Tract Infection: Yes (tx by dr crouch few wks ago) Other/Comment: mammo 04/2013 - PSYCHIATRIC Hx Substance Use: No - SURGICAL HISTORY Hx Surgeries: No (none as per son kenton) Meds Allergies/Adverse Reactions: Allergies Allergy/AdvReac Type Severity Reaction Status Date / Time Penicillins Allergy RASH Verified 03/16/17 15:33 Sulfa (Sulfonamide Allergy RASH Verified 03/16/17 15:33 Antibiotics) - Medications Medications: Current Medications Atorvastatin Calcium (Lipitor) 40 mg PO DAILY [facility] Last Admin: 03/17/17 12:58 Dose: Not Given Heparin Sodium (Porcine) (Heparin) 5,000 units SC Q12 TERESA PRN Reason: Protocol Last Admin: 03/17/17 11:16 Dose: Not Given Aztreonam (Azactam 1 Gm) 100 mls @ 100 mls/hr IVPB Q8 TERESA PRN Reason: Protocol Stop: 03/17/17 14:59 Last Admin: 03/17/17 08:36 Dose: 100 mls/hr Eptifibatide (Integrilin) 75 mg in 100 mls @ 5.987 mls/hr IV .[id number] TERESA; 1 MCG/KG/MIN PRN Reason: Protocol Insulin Human Lispro (Humalog Low) 0 units SC ACHS TERESA PRN Reason: Protocol Last Admin: 03/17/17 12:57 Dose: Not Given Levothyroxine Sodium (Synthroid) 25 mcg PO ACB [facility] Last Admin: 03/17/17 08:24 Dose: Not Given Non-Formulary Medication (Hydrochlorothiazide/Valsarta [Diovan Hct 12.5 Mg-160 Mg]) 1 tab PO DAILY [facility] Last Admin: 03/17/17 12:57 Dose: Not Given Pantoprazole Sodium (Protonix Inj) 40 mg IVP DAILY [facility] Last Admin: 03/17/17 11:18 Dose: 40 mg Physical Exam - Constitutional Appears: Confused - Head Exam Head Exam: ATRAUMATIC, NORMAL INSPECTION, NORMOCEPHALIC - Eye Exam Eye Exam: EOMI, Normal appearance, PERRL - ENT Exam ENT Exam: Mucous Membranes Moist, Normal Exam - Neck Exam Neck exam: Positive for: Normal Inspection - Respiratory Exam Respiratory Exam: Clear to Auscultation Bilateral, NORMAL BREATHING PATTERN - Cardiovascular Exam Cardiovascular Exam: REGULAR RHYTHM, +S1, +S2 - GI/Abdominal Exam GI & Abdominal Exam: Normal Bowel Sounds, Soft. absent: Tenderness - Rectal Exam Rectal Exam: Deferred - Extremities Exam Extremities exam: Positive for: normal inspection - Back Exam Back exam: NORMAL INSPECTION - Neurological Exam Neurological exam: Alert, CN II-XII Intact Additional comments: Right gaze preference, left arm flaccid, left leg weak, left side yu- anesthesia and neglect, plantar response upgoing on the left. NIHSS = 12 - Psychiatric Exam Psychiatric exam: Normal Affect, Normal Mood Results - Vital Signs Recent Vital Signs: Last Vital Signs Temp 101 F H 03/17/17 11:08 Pulse 67 03/17/17 11:08 Resp 17 03/17/17 11:08 BP 160/95 H 03/17/17 11:08 Pulse Ox 97 03/17/17 08:20 - Labs Result Diagrams: 03/17/17 05:30 03/17/17 05:30 Labs: Laboratory Results - last 24 hr 03/16/17 03/17/17 03/17/17 22:34 01:17 05:30 WBC 13.1 H RBC 4.21 Hgb 12.9 Hct 40.5 MCV 96.2 MCH 30.6 MCHC 31.9 RDW 13.7 Plt Count 268 MPV 10.8 Gran % 83.2 H Lymph % (Auto) 11.6 L [place] % (Auto) 4.7 Eos % (Auto) 0.3 L Baso % (Auto) 0.2 Gran # 10.86 H Lymph # 1.5 [place] # 0.6 Eos # 0.0 Baso # 0.02 Sodium Potassium Chloride Carbon Dioxide Anion Gap BUN Creatinine Est GFR ( Amer) Est GFR (Non-Af Amer) POC Glucose (mg/dL) 134 H 140 H Random Glucose Calcium Total Bilirubin AST ALT Alkaline Phosphatase Total Protein Albumin Globulin Albumin/Globulin Ratio 03/17/17 03/17/17 03/17/17 05:30 07:31 12:23 WBC RBC Hgb Hct MCV MCH MCHC RDW Plt Count MPV Gran % Lymph % (Auto) [place] % (Auto) Eos % (Auto) Baso % (Auto) Gran # Lymph # [place] # Eos # Baso # Sodium 140 Potassium 3.3 L Chloride 105 Carbon Dioxide 23 Anion Gap 16 BUN 13 Creatinine 0.6 L Est GFR ( Amer) > 60 Est GFR (Non-Af Amer) > 60 POC Glucose (mg/dL) 125 H 128 H Random Glucose 141 H Calcium 9.0 Total Bilirubin 0.8 AST 16 ALT 26 Alkaline Phosphatase 61 Total Protein 6.9 Albumin 3.6 Globulin 3.3 Albumin/Globulin Ratio 1.1 Assessment & Plan (1) Ischemic stroke Assessment and Plan: Based on the CT head, the stroke is subacute and may have started over 24 hours ago. She is outside the time window for IV tPA, and is not an ideal candidate for thrombectomy. After discussion with Dr. Foley (neurointerventionalist), I recommend the followin. Transfer to ICU for close observation and Q1 hour neuro-checks. 2. MRI of the brain without contrast 3. Integrillin 90 mcg/Kg bolus dose, followed by 1 mcg/kg/min. Continue drip for 14 hours, and repeat CT head without contrast at 14 hours after initiation of Integrillin. IF there is no bleed on CT head and the patient can swallow, load her with aspirin 81 mg and Plavix 300 mg and stop Integrillin at that time. 4. Echocardiogram with bubble study 5. PT/OT eval 6. SCD for DVT Px 7. Fluids with NS at 100 mL/hr 8. Case management consult Thank you for this consultation. Status: Acute Priority: High
--- NOTE | 2017-03-17 13:54 | CARD ---
APPROVED REPORT EKG Measurement Heart [id number] <Conclusion> Normal sinus rhythm with APC's Left bundle branch block
--- NOTE | 2017-03-17 14:14 | MRI ---
PROCEDURE: MRI BRAIN WITHOUT CONTRAST HISTORY: stroke COMPARISON: None. TECHNIQUE: Multiplanar, multisequence MR images of the brain were obtained without intravenous contrast enhancement. FINDINGS: HEMORRHAGE: None DWI: There is an acute infarct in the right basal ganglia and bey radiata measuring 2 x 4 cm. This is in the distribution of the proximal right MCA. There are also a few small cortical infarcts seen more distally. There is no evidence of hemorrhage BRAIN PARENCHYMA: No mass effect or edema. No atrophy or chronic microvascular ischemic changes. VENTRICLES: Unremarkable. No hydrocephalus. CRANIUM: Unremarkable. ORBITS: Grossly unremarkable. PARANASAL SINUSES/MASTOIDS: Fluid is seen in the mastoid air cells bilaterally. There is also opacification of the sinuses. VASCULAR SYSTEM: Skull base flow voids intact. OTHER FINDINGS: None. IMPRESSION: There is an acute infarct in the right basal ganglia and bey radiata measuring 2 x 4 cm. This is in the distribution of the proximal right MCA. There are also a few small cortical infarcts seen more distally. There is no evidence of hemorrhage
--- NOTE | 2017-03-17 14:19 | MRI ---
PROCEDURE: Magnetic Resonance Angiography Brain HISTORY: ams COMPARISON: None available. TECHNIQUE: 3D time of flight MR angiography of the intracranial arteries was performed. Rotating maximum intensity projection images were generated. FINDINGS: INTERNAL CAROTID ARTERIES: Unremarkable. The skull base, petrous, cavernous and supraclinoid segments are bilaterally widely patient. ANTERIOR CEREBRAL ARTERIES: Unremarkable. A1 and A2 segments are widely patent. Smaller distal branches unremarkable, as visualized. MIDDLE CEREBRAL ARTERIES: There is a focal short segment occlusion in the proximal right middle cerebral artery. This corresponds to the infarcts seen on the MRI exam. There is also diminished flow in the distal branches POSTERIOR CIRCULATION: Basilar Artery: Unremarkable. Distal Vertebral Arteries: Unremarkable. Posterior Cerebral Arteries: Unremarkable. Posterior Inferior Cerebellar Arteries: Unremarkable. ANEURYSM/ VASCULAR MALFORMATIONS: None. OTHER FINDINGS: None. IMPRESSION: There is a focal short segment occlusion in the proximal right middle cerebral artery. This corresponds to the infarcts seen on the MRI exam
--- NOTE | 2017-03-17 14:34 | MRI ---
PROCEDURE: MR Angiography of the neck without contrast HISTORY: AMS COMPARISON: None available. TECHNIQUE: 3D [id number] angiography of the neck was performed. Rotating maximum intensity projection images of the cervical carotid and vertebral arteries were generated. The origins of the common carotid arteries were not visualized, which is a limitation inherent to the non-contrast time of flight technique. FINDINGS: RIGHT CAROTID ARTERIES: Common Carotid Artery: Normal. Carotid Bifurcation: Normal. Internal Carotid Artery:Normal. External Carotid Artery (proximal branches): Normal. LEFT CAROTID ARTERIES: Common Carotid Artery: Normal. Carotid Bifurcation: Normal. Internal Carotid Artery:Normal. External Carotid Artery (proximal branches): Normal. VERTEBRAL ARTERIES: Right Vertebral Artery: Normal. Left Vertebral Artery: Normal. OTHER FINDINGS: None. IMPRESSION: No significant stenosis
[2017-03-17] MEDS: Eptifibatide 0.75 mg/ml 75 MG/100 ML BOTTLE IV SCH (14:40)
[2017-03-17] MEDS: Sodium Chloride 0.9% 1,000 ML IV SCH (14:50)
--- NOTE | 2017-03-17 15:17 | PCM.RRT ---
<Duglas Bal - Last Filed: 03/17/17 15:14> COIL WINDER Nurse Assessment - Situation Date: 03/17/17 Time COIL WINDER was called: 10:58 COIL WINDER Responder Arrival Time: 10:58 COIL WINDER Location:: 2A Room Number: 243-1 COIL WINDER Reason for Call: Possible Stroke (Code Stroke ) COIL WINDER Called By: Physician (Dr. Garcia) - Respiratory Oxygen Delivery Method: Room Air, Nasal Cannula @L/min (3L) I.Reason for COIL WINDER - A) Acute Change in Patient: (Select all that apply): Staff member or family is worried about patient ( Possible stroke, left sided flaccid weakness/paralysis) Subjective: House Physician Resident Duglas Bal, PGY-2 IM Code Stroke Note Code Stroke called at 1058 by medical team at bedside, responded immediately. As per Hospitalist attending, Dr. Garcia, patient on presentation had rightward head turning and gaze preference, left sided flaccid weakness/ paralysis, concerning for stroke; pt only admitted for AMS as per ED so Code stroke called. As per primary team, reported by ED that there was longstanding left-sided weakness, but as per pt's nurse, who spoke with pt's son and pt's PMD (Dr. Head), this was a new finding in the last 2 days, and was one of the reasons patient was sent to the hospital by the PMD. Patient is awake and alert, but lethargic, during exam. Oriented to self, place, and year, mildly slurred speech, clearly favors head turned to right, able to lift right arm and move right leg, but only minimal left leg movement and no left arm movement appreciated. NIHSS assessment performed by hospitalist team resident, Dr. Simon (please see attached NIHSS section), concerning for stroke with score of 14. Case discussed with Neurologist food concession manager for Code Stroke, Dr. Gooden, who reports that given presentation, this is not a true Code Stroke, well out of window for possible tPA, and instructed to cancel the code stroke. As per Dr. Gooden, head CT without contrast was to be obtained, and if negative for acute bleed, CT angio of head and neck was to be obtained. Patient was transported to CT, head without contrast scan was obtained, not notable for acute bleed, so CT angio head and neck obtained. As per Radiologist, head CT concerning for Right MCA stroke, and CTA was notable for intraluminal filling defect most compatible with thrombus of Right MCA. As per Dr. Gooden, patient was started on integrillin drip and transferred to ICU, and he will discuss with Interventional Neurologists at outside facilities possibility of transfer for mechanical thrombectomy. Patient seen and reviewed with Hospitalist attending, Dr. Garcia, and Neurologist following the patient, Dr. Gooden. - Neurological Status Other (Please specify): Awake and alert but lethargic, follows most commands and oriented x3 - Respiratory Oxygen Delivery Method: Nasal Cannula @L/min (3L) - Constitutional Appears: Non-toxic, No Acute Distress Additional Comments: Lethargic - Head Head Exam: ATRAUMATIC Additional Comments: head rotated to right, no movement away from right rotation - Eyes Additional Comments: gaze preference to the right, complete hemianopia - Respiratory Exam Respiratory Exam: Clear to Ausculation Bilateral, NORMAL BREATHING PATTERN. absent: Accessory Muscle Use, Chest Wall Tenderness, Decreased Breath Sounds - Cardiovascular Exam Cardiovascular Exam: REGULAR RHYTHM, RRR, +S1, +S2. absent: Bradycardia, Tachycardia, Irregular Rhythm, +S4 - GI/Abdominal Exam GI & Abdominal Exam: Soft. absent: Distended - Neurological Exam Neurological Exam: Alert, Awake, Oriented x3 (self, location, year) Additional exam: -Gait deferred -able to follow commands for moving right upper and lower extremity, minimal left lower extremity movement -no left upper extremity movement -absent/neglected left visual field (when holding dentures cup left lateral and midline in front of gaze, completely missed location and put hand as far right as possible) -Mildly slurred but otherwise intact speech -Awake and alert but somewhat lethargic - Extremities Exam Additional comments: No pitting edema appreciated in bilateral LE movement in extremities as listed in Neuro exam equal bilateral muscle tone in upper and lower extremities Plan - Assessment of Findings&Treatment Plan Head CT without contrast and CT angio head/neck obtained, reviewed by Neurologist and Radiologist; concerning for Right MCA infarct 2/2 thrombus Started on integrillin drip and transferred to ICU; transition to dual antiplatelets as per Neurology's plan Pending possible transfer to another facility for mechanical thrombectomy; Neurology to discuss with Interventional Neurologist at outside facility Permissive HTN to allow adequate perfusion through collateral vessels, HTN 180- 220 acceptable for now as per Neurology NIHSS Scale ([place]) Time Performed: 10:58 - How Severe is the Stoke Baseline Level of Consciousness: 0=Alert LOC to Questions: 0=Both comments correct LOC to commands: 0=Obeys both correctly Best Gaze: 2=Forced deviation Visual: 2=Complete hemianopia Facial: 0=Normal Motor Arm - Left: 4=No movement Motor Arm - Right: 0=No drift Motor Leg - Left: 3=No effort against gravity (falls immediately) Motor Leg - Right: 0=No drift Limb Ataxia: 0=Absent Sensory: 1=Mild to moderate loss Best Language: 0=No aphasia Dysarthia: 0=Normal articulation Extinction & Inattention (Neglect): 2=Profound neglect(does not recognize own hand or orients to one side) Score: 14 Risk Level: Mod Stroke Risk <Logan Garcia - Last Filed: 03/18/17 07:23> COIL WINDER Nurse Assessment - Vital Signs Vital Sign: Rapid Response Vital Sign Blood Pressure 160/95 Pulse Rate 73 Respiratory Rate 13 Temperature 101 F Oxygen Saturation 96 - Vital Signs at end of COIL WINDER Vital Signs at end of COIL WINDER: Rapid Response End Vital Sign Blood Pressure 175/78 Pulse Rate 77 Respiratory Rate 18 Temperature 99.9 F O2 Sat by Pulse Oximetry 98 Attending/Attestation - Attestation I have personally seen and examined this patient.: Yes I have fully participated in the care of the patient.: Yes I have reviewed all pertinent clinical information, including history, physical exam and plan: Yes Notes (Text): 03/18/17 07:21 Attending note; Patient seen and examined during code stroke. Patient was not able to move left arm and left leg. Patient is alert and awake and able to answer a few questions. Patient had a significant right gaze. Face stone towards the right side. Able to move right upper arm. Patient was immediately sent to CAT scan. Showed new infarct. CT angios showed acute thrombus. Case discussed with neurology in detail. Patient failed swallow evaluation. Patient is confused. Started on Integrilin drip. Case discussed with nonfarm animal caretaker. Patient was transferred to ICU for close observation. Family informed by residents on nursing staff.
--- NOTE | 2017-03-17 16:58 | CARD ---
APPROVED REPORT EKG Measurement Heart [id number] <Conclusion> Normal sinus rhythm Left bundle branch block Abnormal ECG
[2017-03-17 17:31] LABS: LDL CHOLESTEROL 117 mg/dL (0-129)
[2017-03-17 17:32] LABS: HDL CHOLESTEROL 24 mg/dL (29-60)
[2017-03-17 17:34] LABS: RAPID PLASMA REAGIN NONREACTIVE (NONREACTIVE)
--- NOTE | 2017-03-17 19:44 | CP.PCM.PN ---
<Felicity Simon - Last Filed: 03/17/17 19:32> Subjective - Date & Time of Evaluation Date of Evaluation: 03/17/17 Time of Evaluation: 07:30 - Subjective Subjective: Mareshelley Aurora DO PGY1 - Internal Medicine Progress Note Patient seen and examined at bedside. Patient was admitted late yesterday evening, for altered mental status and lethargy. On initial encounter, patient reported lethargy, fatigue, and generalized weakness. She denies any chest pain , abdominal pain, nausea, vomiting, diarrhea, constipation, dysuria, hematuria, urgency, frequency, focal weakness/numbness. Later this morning, patient was noted to have right preferential gaze, with profound left sided weakness. Code stroke was called and neurology was informed. Family and PCP were contacted for further histor. Family reports that the last time she was seen behaving normally was two and a half days ago, and PCP reported that she was last seen in his office in January. Objective - Vital Signs/Intake and Output Vital Signs (last 24 hours): Temp Pulse Resp BP Pulse Ox 98.2 F 74 22 172/81 H 97 03/17/17 16:00 03/17/17 16:00 03/17/17 16:00 03/17/17 16:00 03/17/17 16:00 Intake and Output: 03/17/17 03/18/17 18:59 06:59 Intake Total 720 Balance 720 - Medications Medications: Current Medications Atorvastatin Calcium (Lipitor) 40 mg PO DAILY [facility] Last Admin: 03/17/17 12:58 Dose: Not Given Hydralazine HCl (Apresoline) 10 mg IVP Q6 PRN PRN Reason: Systolic Blood Pressure Eptifibatide (Integrilin) 75 mg in 100 mls @ 5.987 mls/hr IV .[id number] TREESA; 1 MCG/KG/MIN PRN Reason: Protocol Last Admin: 03/17/17 14:40 Dose: 5.987 mls/hr Sodium Chloride (Sodium Chloride 0.9%) 1,000 mls @ 100 mls/hr IV .Q10H [facility] Last Admin: 03/17/17 14:50 Dose: 100 mls/hr Insulin Human Lispro (Humalog Low) 0 units SC ACHS [facility] PRN Reason: Protocol Last Admin: 03/17/17 16:45 Dose: Not Given Levothyroxine Sodium (Synthroid) 25 mcg PO ACB [facility] Last Admin: 03/17/17 08:24 Dose: Not Given Non-Formulary Medication (Hydrochlorothiazide/Valsarta [Diovan Hct 12.5 Mg-160 Mg]) 1 tab PO DAILY [facility] Last Admin: 03/17/17 12:57 Dose: Not Given Pantoprazole Sodium (Protonix Inj) 40 mg IVP DAILY [facility] Last Admin: 03/17/17 11:18 Dose: 40 mg - Labs Labs: 03/17/17 05:30 03/17/17 05:30 PT 11.8 SECONDS (9.4-12.5) 03/16/17 16:25 INR 1.03 (0.93-1.08) 03/16/17 16:25 APTT 29.3 Seconds (25.1-36.5) 03/16/17 16:25 - Constitutional Appears: Non-toxic, No Acute Distress - Head Exam Head Exam: ATRAUMATIC, NORMOCEPHALIC - Eye Exam Eye Exam: Normal appearance, PERRL. absent: EOMI (Leftward gaze palsy/neglect) - ENT Exam ENT Exam: Mucous Membranes Moist - Neck Exam Neck Exam: Normal Inspection Additional comments: No audible bruits - Respiratory Exam Respiratory Exam: Clear to Ausculation Bilateral, NORMAL BREATHING PATTERN - Cardiovascular Exam Cardiovascular Exam: REGULAR RHYTHM, +S1, +S2 - GI/Abdominal Exam GI & Abdominal Exam: Soft. absent: Tenderness - Neurological Exam Neurological Exam: Alert, Awake, Oriented x3 Neuro motor strength exam: Left Upper Extremity: 0, Right Upper Extremity: 5, Left Lower Extremity: 2/1, Right Lower Extremity: 5 Additional comments: Left sided hemineglect. Intact facial symmetry. LUE and LLE with profound weakness and implaired sensation to light touch - Psychiatric Exam Psychiatric exam: Flat Affect - Skin Skin Exam: Dry, Intact Assessment and Plan - Assessment and Plan (Free Text) Assessment: Plan: 82yo female with history of DM type 2, hypertension, hyperlipidemia, hypothyroidism and GERD presents with altered mental status secondary to dementia vs CVA vs delirium due to UTI; code stroke called when patient was noted to have profound left sided weakness, not previously noted 1. Altered mental status -Likely secondary to evolving CVA; possibly confounding delirium 2/2 incompletely teated UTI -CT Head in ER revealed no acute intracranial abnormalities; repeat CT head today shows interval infarct in right basal ganglia -CTA head/neck showed right MCA, distal M1 occlusion -As symptoms appeared to start several days ago, patient was not candiate for tPA or thombectomy per neuro -Started integrilin drip after bolus, per neuro; transferred to ICU -Neurochecks Q1 -B12 and folate WNL; RPR negative -Leukocytosis of 13.1, afebrile -IVF hydration -Procalcitonin negative -Urine culture negative -Fall precautions -NPO, pending swallow eval after 14 hours of integrillin; if passes will switch to PO antiplatelets -Neurology on consult; appreciate recs 2. Hypertension -Hold oral antihypertensives -Start PRN hydralazine for SBP >180 3. Hyperlipidemia -Hold oral medications while NPO; will resume home statin when patient is more stable and tolerating PO 4. Hypothyroidism -Hold oral medications while NPO; will resume home synthroid when patient is more stable and tolerating PO 5. DM type 2 -NPO until passes swallow eval; carb consistent diet when tolerating PO -Fingersticks ACHS -Humalog ISS low dose 6. GI/DVT prophylaxis -Protonix/Heparin SC Patient seen and case discussed/reviewed with attending, Dr. Garcia <Logan Garcia - Last Filed: 03/18/17 14:13> Objective - Vital Signs/Intake and Output Vital Signs (last 24 hours): Temp Pulse Resp BP Pulse Ox 97.5 F L 69 23 129/73 93 L 03/18/17 12:00 03/18/17 10:00 03/18/17 10:00 03/18/17 10:00 03/18/17 10:00 Intake and Output: 03/18/17 03/18/17 06:59 18:59 Intake Total 1560 Output Total 250 Balance 1310 - Medications Medications: Current Medications Aspirin (Ecotrin) 81 mg PO DAILY [facility] Atorvastatin Calcium (Lipitor) 40 mg PO DAILY [facility] Last Admin: 03/18/17 10:33 Dose: 40 mg Clopidogrel Bisulfate (Plavix) 75 mg PO DAILY [facility] Hydralazine HCl (Apresoline) 10 mg IVP Q6 PRN PRN Reason: Systolic Blood Pressure Insulin Human Lispro (Humalog Low) 0 units SC ACHS [facility] PRN Reason: Protocol Last Admin: 03/18/17 12:28 Dose: 1 units Levothyroxine Sodium (Synthroid) 25 mcg PO ACB [facility] Last Admin: 03/17/17 08:24 Dose: Not Given Magnesium Oxide (Mag-Ox) 400 mg PO BID [facility] Non-Formulary Medication (Hydrochlorothiazide/Valsarta [Diovan Hct 12.5 Mg-160 Mg]) 1 tab PO DAILY [facility] Last Admin: 03/17/17 12:57 Dose: Not Given Nystatin (Nystatin Oral Susp) 5 ml PO QID [facility] Last Admin: 03/18/17 09:17 Dose: 5 ml Pantoprazole Sodium (Protonix Inj) 40 mg IVP DAILY [facility] Last Admin: 03/18/17 09:18 Dose: 40 mg - Labs Labs: 03/18/17 05:45 03/18/17 05:45 PT 11.8 SECONDS (9.4-12.5) 03/16/17 16:25 INR 1.03 (0.93-1.08) 03/16/17 16:25 APTT 29.3 Seconds (25.1-36.5) 03/16/17 16:25 Attending/Attestation - Attestation I have personally seen and examined this patient.: Yes I have fully participated in the care of the patient.: Yes I have reviewed all pertinent clinical information, including history, physical exam and plan: Yes Notes (Text): 03/18/17 14:09 Attending note; patient is 82-year-old female with past medical history of diabetes type 2, hypertension, hyperlipidemia, hypothyroidism and gastroesophageal reflux disease presents with altered mental status secondary to dementia vs CVA vs delirium due to UTI; code stroke called when patient was noted to have profound left sided weakness, not previously noted. Patient was not able to move left arm and left leg. Patient is alert and awake and able to answer a few questions. Patient had a significant right gaze. Face stone towards the right side. Able to move right upper arm. Patient was immediately sent to CAT scan. Showed new infarct. CT angios showed acute thrombus. Case discussed with neurology in detail. Patient failed swallow evaluation. Patient is confused. Started on Integrilin drip. Case discussed with burner shaft. Patient was transferred to ICU for close observation. speech and swallow evaluation requested. Family informed by residents on nursing staff. 03/18/17 14:11 03/18/17 14:12
--- NOTE | 2017-03-17 20:51 | CP.PCM.CON ---
History of Present Illness - History of Present Illness History of Present Illness: Infectious Disease Consultation: March 17, 2017 Patient is a 82yo female with past medical history of diabetes mellitus type 2, hypertension, hyperlipidemia, hypothyroidism and GERD that presents accompanied by family with reports of increased lethargy, weakness and altered mental status. Per patients son, over the course of the last couple months family had noticed a change in her personality and having become more forgetful as of late. Additionally, over the last several days patient had been bed bound, unable to care for herself and has had a lack of appetite. Family reports that she had been to her PMD, Dr. Head several weeks prior and was reportedly treated for a UTI. She had also been scheduled to see Dr. Wan (hematology/ oncology) for workup of possible leukemia. Family reported that when they came to visit today she appeared confused, weak and lethargic which prompted their visit to the emergency room. Patient denied chest pain, palpitations, SOB, abdominal pain, nausea, vomiting, fever, chills, cough. Diagnosed with stroke. The patient with left sided weakness and facial droop which is new to her. Recently treated for a UTI. Her speech is still garbled. PMHx: DM2, HTN, HLD, hypothyroidism, GERD PSHx: none given Allergies: PCN, Sulfa Social Hx: Ex-smoker stopped 10 years ago. At least 20 pack year history. 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 Active Medications Atorvastatin Calcium (Lipitor) 40 mg PO DAILY [facility] Last Admin: 03/17/17 12:58 Dose: Not Given Hydralazine HCl (Apresoline) 10 mg IVP Q6 PRN PRN Reason: Systolic Blood Pressure Eptifibatide (Integrilin) 75 mg in 100 mls @ 5.987 mls/hr IV .[id number] [facility]; 1 MCG/KG/MIN PRN Reason: Protocol Last Admin: 03/17/17 14:40 Dose: 5.987 mls/hr Sodium Chloride (Sodium Chloride 0.9%) 1,000 mls @ 100 mls/hr IV .Q10H [facility] Last Admin: 03/17/17 14:50 Dose: 100 mls/hr Insulin Human Lispro (Humalog Low) 0 units SC ACHS [facility] PRN Reason: Protocol Last Admin: 03/17/17 16:45 Dose: Not Given Levothyroxine Sodium (Synthroid) 25 mcg PO ACB [facility] Last Admin: 03/17/17 08:24 Dose: Not Given Non-Formulary Medication (Hydrochlorothiazide/Valsarta [Diovan Hct 12.5 Mg-160 Mg]) 1 tab PO DAILY [facility] Last Admin: 03/17/17 12:57 Dose: Not Given Pantoprazole Sodium (Protonix Inj) 40 mg IVP DAILY [facility] Last Admin: 03/17/17 11:18 Dose: 40 mg Family Hx: none given ROS: No fevers, chills, nausea, vomiting, diarrhea, headaches, dizziness, chest pain , abdominal pain, melena, hematuria, hematemesis, hematochezia, depression, anxiety. Past Patient History - Past Social History Smoking Status: Former Smoker - CARDIAC Hx Hypertension: Yes - PULMONARY Hx Respiratory Disorders: Yes Other/Comment: loose cough - NEUROLOGICAL Other/Comment: left facial droop, left side flaccid, tongue drooping to left side, new as of 2 1/2 days ago - HEENT Hx HEENT Problems: (unsure) - RENAL Hx Chronic Kidney Disease: (renal disease) - ENDOCRINE/METABOLIC Hx Diabetes Mellitus Type 2: Yes - HEMATOLOGICAL/ONCOLOGICAL Other/Comment: pt has appt with dr wan on 03/18/17 dx cll referral by dr head - INTEGUMENTARY Other/Comment: long thick fingernails and toenails and dry scaley skin to feet, dry skin to legs, r cw area of dry brown skin 1cm round - MUSCULOSKELETAL/RHEUMATOLOGICAL Hx Falls: Yes (past) - GASTROINTESTINAL Hx Gastrointestinal Disorders: Yes (gi bleed) Hx Gastroesophageal Reflux: Yes - GENITOURINARY/GYNECOLOGICAL Hx Urinary Tract Infection: Yes (tx by dr head few wks ago) Other/Comment: mammo 04/2013 - PSYCHIATRIC Hx Substance Use: No - SURGICAL HISTORY Hx Surgeries: No (none as per son kenton) Meds Allergies/Adverse Reactions: Allergies Allergy/AdvReac Type Severity Reaction Status Date / Time Penicillins Allergy RASH Verified 03/16/17 15:33 Sulfa (Sulfonamide Allergy RASH Verified 03/16/17 15:33 Antibiotics) - Medications Medications: Current Medications Atorvastatin Calcium (Lipitor) 40 mg PO DAILY [facility] Last Admin: 03/17/17 12:58 Dose: Not Given Hydralazine HCl (Apresoline) 10 mg IVP Q6 PRN PRN Reason: Systolic Blood Pressure Eptifibatide (Integrilin) 75 mg in 100 mls @ 5.987 mls/hr IV .[id number] [facility]; 1 MCG/KG/MIN PRN Reason: Protocol Last Admin: 03/17/17 14:40 Dose: 5.987 mls/hr Sodium Chloride (Sodium Chloride 0.9%) 1,000 mls @ 100 mls/hr IV .Q10H [facility] Last Admin: 03/17/17 14:50 Dose: 100 mls/hr Insulin Human Lispro (Humalog Low) 0 units SC ACHS [facility] PRN Reason: Protocol Last Admin: 03/17/17 16:45 Dose: Not Given Levothyroxine Sodium (Synthroid) 25 mcg PO ACB [facility] Last Admin: 03/17/17 08:24 Dose: Not Given Non-Formulary Medication (Hydrochlorothiazide/Valsarta [Diovan Hct 12.5 Mg-160 Mg]) 1 tab PO DAILY [facility] Last Admin: 03/17/17 12:57 Dose: Not Given Pantoprazole Sodium (Protonix Inj) 40 mg IVP DAILY [facility] Last Admin: 03/17/17 11:18 Dose: 40 mg Physical Exam - Constitutional Appears: Unkempt, Confused - Head Exam Head Exam: ATRAUMATIC, NORMOCEPHALIC - Eye Exam Eye Exam: EOMI, PERRL Pupil Exam: NORMAL ACCOMODATION, PERRL - ENT Exam ENT Exam: Mucous Membranes Moist, Normal External Ear Exam, TM's Normal Bilaterally - Neck Exam Neck exam: Positive for: Full Rom, Normal Inspection - Respiratory Exam Respiratory Exam: Clear to Auscultation Bilateral, NORMAL BREATHING PATTERN. absent: Rales, Rhonchi, Wheezes - Cardiovascular Exam Cardiovascular Exam: REGULAR RHYTHM, RRR, +S1, +S2 - GI/Abdominal Exam GI & Abdominal Exam: Normal Bowel Sounds, Soft. absent: Distended, Tenderness - Extremities Exam Extremities exam: Negative for: joint swelling, pedal edema - Neurological Exam Neurological exam: Alert, Altered, Oriented x3 Additional comments: weakness in left side, left facial droop, speech is somewhat garbled. Decreased sensation of the left side of face. - Skin Skin Exam: Dry, Intact, Normal Color Results - Vital Signs Recent Vital Signs: Last Vital Signs Temp 98.2 F 03/17/17 16:00 Pulse 74 03/17/17 16:00 Resp 22 03/17/17 16:00 BP 172/81 H 03/17/17 16:00 Pulse Ox 97 03/17/17 16:00 - Labs Result Diagrams: 03/17/17 05:30 03/17/17 05:30 Labs: Laboratory Results - last 24 hr 03/16/17 03/16/17 03/16/17 21:42 21:42 22:34 WBC RBC Hgb Hct MCV MCH MCHC RDW Plt Count MPV Gran % Lymph % (Auto) Kaufman % (Auto) Eos % (Auto) Baso % (Auto) Gran # Lymph # Kaufman # Eos # Baso # Sodium Potassium Chloride Carbon Dioxide Anion Gap BUN Creatinine Est GFR ( Amer) Est GFR (Non-Af Amer) POC Glucose (mg/dL) 134 H Random Glucose Calcium Total Bilirubin AST ALT Alkaline Phosphatase Total Protein Albumin Globulin Albumin/Globulin Ratio Triglycerides Cholesterol LDL Cholesterol Direct HDL Cholesterol Vitamin B12 431 Folate 16.1 Procalcitonin < 0.05 L RPR Nonreactive 03/17/17 03/17/17 03/17/17 01:17 05:30 05:30 WBC 13.1 H RBC 4.21 Hgb 12.9 Hct 40.5 MCV 96.2 MCH 30.6 MCHC 31.9 RDW 13.7 Plt Count 268 MPV 10.8 Gran % 83.2 H Lymph % (Auto) 11.6 L Kaufman % (Auto) 4.7 Eos % (Auto) 0.3 L Baso % (Auto) 0.2 Gran # 10.86 H Lymph # 1.5 Kaufman # 0.6 Eos # 0.0 Baso # 0.02 Sodium 140 Potassium 3.3 L Chloride 105 Carbon Dioxide 23 Anion Gap 16 BUN 13 Creatinine 0.6 L Est GFR ( Amer) > 60 Est GFR (Non-Af Amer) > 60 POC Glucose (mg/dL) 140 H Random Glucose 141 H Calcium 9.0 Total Bilirubin 0.8 AST 16 ALT 26 Alkaline Phosphatase 61 Total Protein 6.9 Albumin 3.6 Globulin 3.3 Albumin/Globulin Ratio 1.1 Triglycerides Cholesterol LDL Cholesterol Direct HDL Cholesterol Vitamin B12 Folate Procalcitonin RPR 03/17/17 03/17/17 03/17/17 05:30 07:31 12:23 WBC RBC Hgb Hct MCV MCH MCHC RDW Plt Count MPV Gran % Lymph % (Auto) Kaufman % (Auto) Eos % (Auto) Baso % (Auto) Gran # Lymph # Kaufman # Eos # Baso # Sodium Potassium Chloride Carbon Dioxide Anion Gap BUN Creatinine Est GFR ( Amer) Est GFR (Non-Af Amer) POC Glucose (mg/dL) 125 H 128 H Random Glucose Calcium Total Bilirubin AST ALT Alkaline Phosphatase Total Protein Albumin Globulin Albumin/Globulin Ratio Triglycerides 177 H Cholesterol 167 LDL Cholesterol Direct 117 HDL Cholesterol 24 L Vitamin B12 Folate Procalcitonin RPR 03/17/17 17:26 WBC RBC Hgb Hct MCV MCH MCHC RDW Plt Count MPV Gran % Lymph % (Auto) Kaufman % (Auto) Eos % (Auto) Baso % (Auto) Gran # Lymph # Kaufman # Eos # Baso # Sodium Potassium Chloride Carbon Dioxide Anion Gap BUN Creatinine Est GFR ( Amer) Est GFR (Non-Af Amer) POC Glucose (mg/dL) 139 H Random Glucose Calcium Total Bilirubin AST ALT Alkaline Phosphatase Total Protein Albumin Globulin Albumin/Globulin Ratio Triglycerides Cholesterol LDL Cholesterol Direct HDL Cholesterol Vitamin B12 Folate Procalcitonin RPR Assessment & Plan - Assessment and Plan (Free Text) Assessment: 82 yo female with recent UTI treatment presenting with AMS and residual left sided weakness from stroke on this hospitalization. Supportive care. Mild leukocytosis. Urine cultures appear negative. Urinalysis showed no leukocyte esterase or nitrates. Stroke leading to this hospitalization. Would not start additional antibiotics at this time. Supportive care. In fact, would hold off on antibiotics at this point in time. Thank you for allowing me to participate in the care of the patient, we will follow with you.
[2017-03-18] MEDS: Sodium Chloride 0.9% 1,000 ML IV SCH ×3 (03:40→16:46)
--- NOTE | 2017-03-18 04:13 | CON ---
DATE: REASON FOR CONSULTATION: Cardiac evaluation, CVA, left-sided weakness. BRIEF CLINICAL HISTORY: This is an 82-year-old female with a past medical history of diabetes, hypertension, hyperlipidemia, hypothyroidism, gastroesophageal reflux, admitted with altered mental status initially, the patient was found to have UTI and being treated in the floor, but this morning noticed facial droop and left upper and lower extremity weakness and right preferential gaze, status post code stroke was activated. The patient was not given tPA because definite time was not sure. Initial CAT scan did not show anything. Initial admitting EKG yesterday was with no acute finding. Today, repeat CAT scan was done, focal asymmetry low-density in anterior limb, internal capsule and caudate new finding is noted. Following this, the patient had MRI of the brain and that shows acute infarct to right basal ganglia and bey radiata in the distribution of right inferior MCA (middle cerebral artery) territory infarct. The patient moved to ICU. The patient has a right preferential gaze and weakness of the left upper and lower extremity. Denies any chest pain, shortness of breath, any palpitations. Family is at the bedside, and son and daughter at the bedside. PAST MEDICAL HISTORY: Past history significant for diabetes, hypertension, hyperlipidemia, hypothyroidism, and gastroesophageal reflux. PAST SURGICAL HISTORY: Denies any history of surgery. FAMILY HISTORY: Father with history of coronary artery disease. ALLERGIES: ALLERGIC TO PENICILLIN AND SULFA. CURRENT MEDICATIONS: Prior to that, the patient was coming to the hospital, the patient was taking valsartan, hydrochlorothiazide, metformin, omeprazole, Crestor, and levothyroxine. REVIEW OF SYSTEMS: As per HPI. PHYSICAL EXAMINATION VITAL SIGNS: As follows; temperature afebrile, heart rate 72, and blood pressure 172/81. HEENT: PERRLA. Extraocular muscles are intact. NECK: Supple. No carotid bruits or thyromegaly. CHEST: Clear to auscultation. HEART: S1 and S2, regular. ABDOMEN: Soft. EXTREMITIES: Clubbing and cyanosis negative. LABORATORY DATA: EKG shows normal sinus rhythm, left bundle branch block. Blood workup as follows; WBC 13.8, hemoglobin 12.9, hematocrit 40.5, and platelet count 268. Chemistry shows sodium 140, potassium 3.2, chloride 105, carbon dioxide 23, anion gap of 16, BUN 13, creatinine 0.6. IMPRESSION: Acute cerebrovascular accident with left-sided weakness, right preferential gaze, left facial droop, diabetes, hypertension, hyperlipidemia. PLAN: TPA was not given. Currently,the patient was started on Integrilin. We will follow with lipid profile, TSH, hemoglobin A1c, echo to assess LV function. We will try to treat management for the blood pressure aggressively. As per Neurology, wanted to keep the patient's blood pressure systolic more than 170, p.r.n. order was retained. We will follow with you. Thank you Dr. Garcia for providing us the opportunity in taking care of Alyson. Hector Lopez MD
[2017-03-18] MEDS: Eptifibatide 0.75 mg/ml 75 MG/100 ML BOTTLE IV SCH (06:47)
--- NOTE | 2017-03-18 06:53 | CP.PCM.PN ---
<Grazyna Cotton - Last Filed: 03/18/17 09:25> Subjective - Date & Time of Evaluation Date of Evaluation: 03/18/17 Time of Evaluation: 06:39 - Subjective Subjective: ICU Progress Note for Vida Rashid PGY2 Patient seen and examined at bedside. As per nursing staff, there were no acute overnight events. Patient reports feeling well today. She denies weakness, chest pain, shortness of breath, fever/chills, dysuria, hematuria, numbness/ tingling. Objective - Vital Signs/Intake and Output Vital Signs (last 24 hours): Temp Pulse Resp BP Pulse Ox 98.3 F 58 L 20 127/59 L 96 03/18/17 04:00 03/18/17 06:00 03/18/17 05:00 03/18/17 05:00 03/18/17 05:00 Intake and Output: 03/17/17 03/18/17 18:59 06:59 Intake Total 720 1560 Output Total 250 Balance 720 1310 - Medications Medications: Current Medications Atorvastatin Calcium (Lipitor) 40 mg PO DAILY [facility] Last Admin: 03/17/17 12:58 Dose: Not Given Hydralazine HCl (Apresoline) 10 mg IVP Q6 PRN PRN Reason: Systolic Blood Pressure Eptifibatide (Integrilin) 75 mg in 100 mls @ 5.987 mls/hr IV .[id number] [facility]; 1 MCG/KG/MIN PRN Reason: Protocol Last Admin: 03/17/17 14:40 Dose: 5.987 mls/hr Sodium Chloride (Sodium Chloride 0.9%) 1,000 mls @ 100 mls/hr IV .Q10H [facility] Last Admin: 03/18/17 03:40 Dose: 100 mls/hr Insulin Human Lispro (Humalog Low) 0 units SC ACHS [facility] PRN Reason: Protocol Last Admin: 03/17/17 22:53 Dose: Not Given Levothyroxine Sodium (Synthroid) 25 mcg PO ACB [facility] Last Admin: 03/17/17 08:24 Dose: Not Given Non-Formulary Medication (Hydrochlorothiazide/Valsarta [Diovan Hct 12.5 Mg-160 Mg]) 1 tab PO DAILY [facility] Last Admin: 03/17/17 12:57 Dose: Not Given Nystatin (Nystatin Oral Susp) 5 ml PO QID [facility] Pantoprazole Sodium (Protonix Inj) 40 mg IVP DAILY [facility] Last Admin: 03/17/17 11:18 Dose: 40 mg - Labs Labs: 03/17/17 05:30 03/17/17 05:30 PT 11.8 SECONDS (9.4-12.5) 03/16/17 16:25 INR 1.03 (0.93-1.08) 03/16/17 16:25 APTT 29.3 Seconds (25.1-36.5) 03/16/17 16:25 - Constitutional Appears: No Acute Distress - Head Exam Head Exam: ATRAUMATIC, NORMAL INSPECTION, NORMOCEPHALIC - Eye Exam Eye Exam: Normal appearance, PERRL Pupil Exam: Miosis, NORMAL ACCOMODATION, PERRL Additional comments: R gaze preference - ENT Exam ENT Exam: Mucous Membranes Dry Additional comments: white scrapeable plaque on mouth - Neck Exam Neck Exam: Normal Inspection - Respiratory Exam Respiratory Exam: Clear to Ausculation Bilateral, NORMAL BREATHING PATTERN. absent: Rales, Rhonchi, Wheezes - Cardiovascular Exam Cardiovascular Exam: REGULAR RHYTHM, +S1, +S2. absent: Gallop, Rubs, Murmur - GI/Abdominal Exam GI & Abdominal Exam: Soft, Normal Bowel Sounds. absent: Rigid, Tenderness, Mass , Rebound - Extremities Exam Extremities Exam: Normal Inspection. absent: Calf Tenderness, Pedal Edema - Neurological Exam Neurological Exam: Alert, Awake, CN II-XII Intact, Oriented x3 Neuro motor strength exam: Left Upper Extremity: 0, Right Upper Extremity: 5, Left Lower Extremity: 2/1, Right Lower Extremity: 5 Additional comments: L sided facial droop, R gaze preference - Psychiatric Exam Psychiatric exam: Normal Affect, Normal Mood - Skin Skin Exam: Dry, Intact, Warm Assessment and Plan - Assessment and Plan (Free Text) Assessment: This is an 82yo Female with past medical history of DM2, HTN, HLD, hypothyroidism and GERD who was admitted for AMS. Patient was found to have UTI. Patient was found weak on her L side with R gaze preference. Code stroke was called and was found to have R CVA. Brain MRI showed R basal ganglia CVA and bey radiata in distribution of R MCA. CTA showed 5mm of intraluminal filling defect in distal R M1 segment compatible with intraluminal thrombus. No carotid stenosis was noted. Plan: Neuro: R CVA of MCA Integrillin drip stopped Repeat CT head showed stable R MCA CVA no bleed Will load Pt with ASA and Plavix Neuro consulted-recs appreciated Neuro checks Physical therapy Speech therapy and occupational therapy CV: Hx of HTN Permissive HTN in setting of CVA BP meds on hold NS@100 Hydralazine prn SBP >180 Cardio on consult Echo ordered Continue Lipitor Resp: Patient on NC- continue to Maintain spO2>90% Protective lung ventilation strategy GI: Pt passed speech and swallow Started on puree diet Nystatin swish and swallow for oral thrush Heme: No anemia noted without overt signs of bleeding Continue to monitor Nephro: Monitor electrolytes and replace as needed ID: Leukocytosis, afebrile (can be secondary to CVA) As per ID- no evidence of UTI at this time Urine culture negative, PCT low Antibiotics discontinued Endo: Pt has hx of Hypothyroidism Continue home synthroid Hx of DM on ISS- maintain euglycemia HgbA1c pending Gi ppx: Protonix DVT ppx: SCDs Case seen, discussed and reviewed with attending. Vida Cotton PGY2 <Brent Reynolds - Last Filed: 03/18/17 10:24> Objective - Vital Signs/Intake and Output Vital Signs (last 24 hours): Temp Pulse Resp BP Pulse Ox 100.5 F H 58 L 20 127/59 L 96 03/18/17 08:00 03/18/17 06:00 03/18/17 05:00 03/18/17 05:00 03/18/17 05:00 Intake and Output: 03/18/17 03/18/17 06:59 18:59 Intake Total 1560 Output Total 250 Balance 1310 - Medications Medications: Current Medications Aspirin (Ecotrin) 81 mg PO DAILY [facility] Atorvastatin Calcium (Lipitor) 40 mg PO DAILY [facility] Last Admin: 03/17/17 12:58 Dose: Not Given Clopidogrel Bisulfate (Plavix) 75 mg PO DAILY [facility] Hydralazine HCl (Apresoline) 10 mg IVP Q6 PRN PRN Reason: Systolic Blood Pressure Insulin Human Lispro (Humalog Low) 0 units SC ACHS [facility] PRN Reason: Protocol Last Admin: 03/18/17 07:48 Dose: Not Given Levothyroxine Sodium (Synthroid) 25 mcg PO ACB [facility] Last Admin: 03/17/17 08:24 Dose: Not Given Non-Formulary Medication (Hydrochlorothiazide/Valsarta [Diovan Hct 12.5 Mg-160 Mg]) 1 tab PO DAILY [facility] Last Admin: 03/17/17 12:57 Dose: Not Given Nystatin (Nystatin Oral Susp) 5 ml PO QID [facility] Last Admin: 03/18/17 09:17 Dose: 5 ml Pantoprazole Sodium (Protonix Inj) 40 mg IVP DAILY [facility] Last Admin: 03/18/17 09:18 Dose: 40 mg - Labs Labs: 03/18/17 05:45 03/18/17 05:45 PT 11.8 SECONDS (9.4-12.5) 03/16/17 16:25 INR 1.03 (0.93-1.08) 03/16/17 16:25 APTT 29.3 Seconds (25.1-36.5) 03/16/17 16:25 Assessment and Plan - Assessment and Plan (Free Text) Plan: Patient seen and examined with resident, on rounds, agree with note, with following additions exceptions: Patient is 82yo Female with PMHX of DM2, HTN, HLD, hypothyroidism and GERD who was admitted for AMS, found to have UTI. Patient was found weak on her L side with R gaze preference, code stroke was called and was found to have R CVA, not candidate for tPA as per neurology. CTA showed 5mm of intraluminal filling defect in distal R M1 segment compatible with intraluminal thrombus. Patient received Integrillin drip, now off, repeat CTH without acute bleed. Loaded with ASA, Plavix. Neurology following, Acute CVA UTI HTN HLD Hypothyroidism Recommend: - supp o2 as needed - follow up cultures, check procal - Cipro IV - ASA, Plavix as per neurology - ?repeat CT Angio - follow up neurology - PT consult - ECHO - GI ppx - DVT ppx, HSQ
[2017-03-18 07:04] LABS: BASO # 0.02 [, K/mm3] (0.0-2.0); BASO % 0.2 % (0.0-3.0); EOS % 0.1 % (1.5-5.0); GRAN # 11.09 (1.4-6.5); GRAN % 83.3 % (50.0-68.0); LYMPH # 1.3 (1.2-3.4); MEAN CELL VOLUME 97.9 fl (80.0-105.0); MEAN CORPUSCULAR HEMOGLOBIN 31.1 pg (25.0-35.0); MEAN CORPUSCULAR HGB CONC 31.7 g/dl (31.0-37.0); MEAN PLATELET VOLUME 10.4 fl (7.0-11.0); MONO # 0.9 (0.1-0.6); MONO % 6.4 % (1.0-6.0); RBC 3.86 [, 10^6/uL] (3.5-6.1); RED CELL DISTRIBUTION WIDTH 13.9 % (11.5-14.5); WHITE BLOOD COUNT 13.3 [, 10^3/ul] (4.5-11.0)
[2017-03-18 07:39] LABS: ALBUMIN 3.4 g/dL (3.0-4.8); ALT/SGPT 26 U/L (7-56); AST/SGOT 18 U/L (14-36); BLOOD UREA NITROGEN 12 mg/dL (7-21); CALCIUM 8.7 mg/dL (8.4-10.5); GFR AFRICAN-AMERICAN > 60; GFR NON-AFRICAN AMERICAN > 60; MAGNESIUM 1.7 mg/dL (1.7-2.2)
[2017-03-18] MEDS: Insulin Lispro (humaLOG) LOW Coverage SC SCH ×3 (07:48→16:35)
--- NOTE | 2017-03-18 08:30 | CT ---
PROCEDURE: CT HEAD WITHOUT CONTRAST. HISTORY: CVA COMPARISON: MRI 03/17/2017 TECHNIQUE: Axial computed tomography images were obtained through the head/brain without intravenous contrast. Radiation dose: Total exam DLP = 736 mGy-cm. This CT exam was performed using one or more of the following dose reduction techniques: Automated exposure control, adjustment of the mA and/or kV according to patient size, and/or use of iterative reconstruction technique. FINDINGS: HEMORRHAGE: No intracranial hemorrhage. BRAIN: No mass effect or edema. There is a large infarct in the right basal ganglia and bey radiata in the distribution of the proximal right middle cerebral artery. This was demonstrated on yesterday's MRI. There is no evidence of hemorrhage VENTRICLES: Unremarkable. No hydrocephalus. CALVARIUM: Unremarkable. PARANASAL SINUSES: Unremarkable as visualized. No significant inflammatory changes. MASTOID AIR CELLS: Unremarkable as visualized. No inflammatory changes. OTHER FINDINGS: None. IMPRESSION: Acute infarct in the right basal ganglia and bey radiata unchanged from prior MRI exam
[2017-03-18] MEDS ORDERED: Aspirin 325 mg EC Tablets PO STA (08:45)
[2017-03-18] MEDS: Nystatin 100,000 Units/ml Oral Susp 5 ml UD PO SCH ×4 (09:17→21:55)
--- NOTE | 2017-03-18 11:07 | CT ---
PROCEDURE: CT Angiography of the Brain. HISTORY: f/u CVA COMPARISON: None available. TECHNIQUE: CT angiography of the intracranial arteries was performed. Coronal and sagittal maximum intensity projection reformated images were generated. This CT exam was performed using one or more of the following dose reduction techniques: Automated exposure control, adjustment of the mA and/or kV according to patient size, and/or use of iterative reconstruction technique. FINDINGS: INTERNAL CEREBRAL ARTERIES: Unremarkable. The skull base, petrous, cavernous and supraclinoid segments are bilaterally widely patent. ANTERIOR CEREBRAL ARTERIES: Unremarkable. A1 and A2 segments are widely patent. Smaller distal branches unremarkable, as visualized. MIDDLE CEREBRAL ARTERIES: Unremarkable. M1 and M2 segments are widely patent. Perisylvian branches grossly symmetric. POSTERIOR CIRCULATION: Basilar Artery: Unremarkable. Distal Vertebral Arteries: Unremarkable. Posterior Cerebral Arteries: Unremarkable. Posterior Inferior Cerebellar Arteries: Unremarkable. ANEURYSM/ VASCULAR MALFORMATIONS: None. OTHER FINDINGS: None. IMPRESSION: Unremarkable CT Angiography of the Brain. PROCEDURE: CT Angiography of the neck with contrast HISTORY: f/u CVA COMPARISON: None available. TECHNIQUE: Contiguous axial images of the neck were obtained from the level of the skull-base to the superior mediastinum in the arteriographic phase of enhancement. Coronal and sagittal reformats or also generated. IV contrast dose: 150 cc of Omni 350 Radiation Dose - DLP: 463 mGy-cm This CT exam was performed using one or more of the following dose reduction techniques: Automated exposure control, adjustment of the mA and/or kV according to patient size, and/or use of iterative reconstruction technique. FINDINGS: RIGHT CAROTID ARTERIES: Common Carotid Artery: Normal. Carotid Bifurcation: Small calcified plaques. No stenosis Internal Carotid Artery:Normal. External Carotid Artery (proximal branches): Normal. LEFT CAROTID ARTERIES: Common Carotid Artery: Normal. Carotid Bifurcation: Small calcified plaques with no stenosis Internal Carotid Artery:Normal. External Carotid Artery (proximal branches): Normal. VERTEBRAL ARTERIES: Right Vertebral Artery: Normal. Left Vertebral Artery: Normal. OTHER FINDINGS: None. IMPRESSION: No evidence of stenosis
--- NOTE | 2017-03-18 11:17 | CP.PCM.PN ---
Subjective - Date & Time of Evaluation Date of Evaluation: 03/18/17 Time of Evaluation: 10:00 - Subjective Subjective: Mrs. Shields was seen and examined today at bedside in the ICU. She continues to have the left arm flaccid paralysis, with left side neglect. She is able to move her left leg. Essentially, the exam is unchanged. She passed the swallow eval and is on a puree diet now. She was able to take the Plavix 300 mg loading dose PO and Aspirin 81 mg after crushing. There were no acute events overnight. Objective - Vital Signs/Intake and Output Vital Signs (last 24 hours): Temp Pulse Resp BP Pulse Ox 98.5 F 77 23 129/73 93 L 03/18/17 08:00 03/18/17 10:00 03/18/17 10:00 03/18/17 10:00 03/18/17 10:00 Intake and Output: 03/18/17 03/18/17 06:59 18:59 Intake Total 1560 Output Total 250 Balance 1310 - Medications Medications: Current Medications Aspirin (Ecotrin) 81 mg PO DAILY [facility] Atorvastatin Calcium (Lipitor) 40 mg PO DAILY [facility] Last Admin: 03/18/17 10:33 Dose: 40 mg Clopidogrel Bisulfate (Plavix) 75 mg PO DAILY [facility] Hydralazine HCl (Apresoline) 10 mg IVP Q6 PRN PRN Reason: Systolic Blood Pressure Insulin Human Lispro (Humalog Low) 0 units SC ACHS [facility] PRN Reason: Protocol Last Admin: 03/18/17 07:48 Dose: Not Given Levothyroxine Sodium (Synthroid) 25 mcg PO ACB [facility] Last Admin: 03/17/17 08:24 Dose: Not Given Non-Formulary Medication (Hydrochlorothiazide/Valsarta [Diovan Hct 12.5 Mg-160 Mg]) 1 tab PO DAILY [facility] Last Admin: 03/17/17 12:57 Dose: Not Given Nystatin (Nystatin Oral Susp) 5 ml PO QID [facility] Last Admin: 03/18/17 09:17 Dose: 5 ml Pantoprazole Sodium (Protonix Inj) 40 mg IVP DAILY [facility] Last Admin: 03/18/17 09:18 Dose: 40 mg - Labs Labs: 03/18/17 05:45 03/18/17 05:45 PT 11.8 SECONDS (9.4-12.5) 03/16/17 16:25 INR 1.03 (0.93-1.08) 03/16/17 16:25 APTT 29.3 Seconds (25.1-36.5) 03/16/17 16:25 - Neurological Exam Neurological Exam: Awake, Oriented x3 Neuro motor strength exam: Left Upper Extremity: 0, Right Upper Extremity: 4, Left Lower Extremity: 2/1, Right Lower Extremity: 4 Additional comments: NIHSS = 12 Assessment and Plan (1) Ischemic stroke Assessment & Plan: Integrillin was stopped at 7 AM, and the patient was loaded with aspirin/ Plavix. The plan is to continue NS at 100 mL/hr, continue daily aspirin 81 mg and Plavix 75 mg. Continue telemetry and monitor for cardiac dysrrhythmia. Echocardiogram with bubble is pending. Start PT/OT MEHDI. DVT Px is recommended. Repeat CT head at 2 PM to rule out hemorrhagic conversion. If the CT scan is stable, she may be downgraded to telemetry with Q 2 hour neurochecks. Status: Acute
[2017-03-18] MEDS ORDERED: Potassium Chloride 20 mEq ER Tab PO ONE (11:21)
--- NOTE | 2017-03-18 14:17 | PN ---
DATE: 03/18/2017 REASON FOR CONSULTATION: Cardiac evaluation, CVA, left-sided weakness. SUBJECTIVE: The patient denies any chest pain, shortness of breath, any palpitations, awake and alert but has right-sided preferential gaze, facial droop as well as left upper extremity and lower extremity weakness. OBJECTIVE: VITAL SIGNS: Temperature afebrile, heart rate 77, blood pressure 129/73. HEENT: PERRLA. Extraocular muscles intact. NECK: Supple. No carotid bruits or thyromegaly. CHEST: Clear to auscultation. HEART: S1 and S2 regular. ABDOMEN: Soft. EXTREMITIES: Clubbing and cyanosis negative. LABORATORY DATA: Blood workup as follows: WBC , hemoglobin 12, hematocrit 37.8, platelet count 287,000. Chemistry shows sodium 143, potassium 3.7, chloride 106, carbon dioxide 27, anion gap of 13, BUN 12, creatinine 0.7. IMPRESSION: Acute cerebrovascular accident, middle cerebral artery territory infarct, cerebrovascular accident, right-sided preferential gaze, left facial droop, diabetes, hypertension, hyperlipidemia, left upper extremity weakness. Recommended tPA was not given because of unknown duration, The patient is on Integrilin for 18 hours, completed hydralazine, p.r.n. aspirin. I will continue to closely monitor. Continue atorvastatin, continue Plavix as per neurologist, Echo pending. We will supplement . Further recommendations as per hospital course. We will follow with you. Thank you Dr. Garcia for the opportunity in taking care of Marian Shields. Hector Lopez MD
--- NOTE | 2017-03-18 17:08 | CP.PCM.PN ---
<AuroraFelicity - Last Filed: 03/18/17 17:02> Subjective - Date & Time of Evaluation Date of Evaluation: 03/18/17 Time of Evaluation: 07:30 - Subjective Subjective: Felicity Simon DO PGY1 - Internal Medicine Progress Note Patient seen and examined at bedside. Patient has no particular complaints. She denies any headache, chest pain, SOB. She continues to have rightward preferential gaze. She does not appear to be cognizant of her current medical status, and is not aware of or does not comprehend the fact that she had a stroke. Objective - Vital Signs/Intake and Output Vital Signs (last 24 hours): Temp Pulse Resp BP Pulse Ox 97.5 F L 69 23 129/73 93 L 03/18/17 12:00 03/18/17 10:00 03/18/17 10:00 03/18/17 10:00 03/18/17 10:00 Intake and Output: 03/18/17 03/18/17 06:59 18:59 Intake Total 1560 Output Total 250 Balance 1310 - Medications Medications: Current Medications Aspirin (Ecotrin) 81 mg PO DAILY [facility] Atorvastatin Calcium (Lipitor) 40 mg PO DAILY [facility] Last Admin: 03/18/17 10:33 Dose: 40 mg Clopidogrel Bisulfate (Plavix) 75 mg PO DAILY [facility] Hydralazine HCl (Apresoline) 10 mg IVP Q6 PRN PRN Reason: Systolic Blood Pressure Sodium Chloride (Sodium Chloride 0.9%) 1,000 mls @ 100 mls/hr IV .Q10H [facility] Last Admin: 03/18/17 16:46 Dose: 100 mls/hr Insulin Human Lispro (Humalog Low) 0 units SC ACHS [facility] PRN Reason: Protocol Last Admin: 03/18/17 16:35 Dose: Not Given Levothyroxine Sodium (Synthroid) 25 mcg PO ACB [facility] Last Admin: 03/17/17 08:24 Dose: Not Given Magnesium Oxide (Mag-Ox) 400 mg PO BID [facility] Non-Formulary Medication (Hydrochlorothiazide/Valsarta [Diovan Hct 12.5 Mg-160 Mg]) 1 tab PO DAILY [facility] Last Admin: 03/17/17 12:57 Dose: Not Given Nystatin (Nystatin Oral Susp) 5 ml PO QID [facility] Last Admin: 03/18/17 14:25 Dose: 5 ml Pantoprazole Sodium (Protonix Ec Tab) 40 mg PO ACB [facility] - Labs Labs: 03/18/17 05:45 03/18/17 05:45 PT 11.8 SECONDS (9.4-12.5) 03/16/17 16:25 INR 1.03 (0.93-1.08) 03/16/17 16:25 APTT 29.3 Seconds (25.1-36.5) 03/16/17 16:25 - Constitutional Appears: Non-toxic, No Acute Distress, Confused - Head Exam Head Exam: ATRAUMATIC, NORMOCEPHALIC - Eye Exam Eye Exam: EOMI (patient has partial gaze palzy ), Normal appearance, PERRL - ENT Exam ENT Exam: Mucous Membranes Moist - Neck Exam Neck Exam: Normal Inspection - Respiratory Exam Respiratory Exam: Clear to Ausculation Bilateral, NORMAL BREATHING PATTERN - Cardiovascular Exam Cardiovascular Exam: REGULAR RHYTHM, +S1, +S2 - GI/Abdominal Exam GI & Abdominal Exam: Soft, Normal Bowel Sounds. absent: Tenderness - Extremities Exam Extremities Exam: absent: Calf Tenderness, Pedal Edema - Neurological Exam Neurological Exam: Alert, Awake, Oriented x3 Neuro motor strength exam: Left Upper Extremity: 0, Right Upper Extremity: 5, Left Lower Extremity: 0 (Some spontaneous movements; no intentional movements), Right Lower Extremity: 5 Additional comments: Left sided facial droop involving the forehead, leftward tongue deviation - Psychiatric Exam Psychiatric exam: Flat Affect - Skin Skin Exam: Dry, Intact, Normal Color Assessment and Plan - Assessment and Plan (Free Text) Assessment: 82yo female with history of DM type 2, hypertension, hyperlipidemia, hypothyroidism and GERD presents with altered mental status secondary to dementia vs CVA vs delirium due to UTI; code stroke called when patient was noted to have profound left sided weakness, not previously noted; 1. Altered mental status -Secondary to evolving CVA -CT Head in ER revealed no acute intracranial abnormalities; repeat CT head yesterday shows interval infarct in right basal ganglia; repeat head CT today stable since yesterday -Repeat head CT this afternoon to r/o hemorrhagic conversion -CTA head/neck showed right MCA, distal M1 occlusion; repeat CTA Head/Neck today -Integrilin drip stopped at 0700, loaded with ASA and Plavix -Continue daily ASA and Plavix -Neurochecks Q2 -IVF hydration -Fall precautions -Patient passed swallow eval; resume PO medications -Start PT, OT, and continue speech/swallow therapy -Neurology on consult; appreciate recs 2. Hypertension -Hold oral antihypertensives -Continue PRN hydralazine for SBP >180 3. Hyperlipidemia -Resume home statin 4. Hypothyroidism -Resume home synthroid 5. DM type 2 -Carb consistent diet -Fingersticks ACHS -Humalog ISS low dose 6. GI/DVT prophylaxis -Protonix/Heparin SC Patient seen and case discussed/reviewed with attending, Dr. Garcia <Logan Garcia - Last Filed: 03/19/17 15:02> Objective - Vital Signs/Intake and Output Vital Signs (last 24 hours): Temp Pulse Resp BP Pulse Ox 99.5 F 71 19 172/88 H 96 03/19/17 12:00 03/19/17 14:00 03/18/17 17:00 03/19/17 12:08 03/18/17 18:00 - Medications Medications: Current Medications Aspirin (Ecotrin) 81 mg PO DAILY [facility] Last Admin: 03/19/17 09:20 Dose: 81 mg Atorvastatin Calcium (Lipitor) 40 mg PO DAILY [facility] Last Admin: 03/19/17 09:20 Dose: 40 mg Insulin Human Lispro (Humalog Low) 0 units SC [facility] PRN Reason: Protocol Last Admin: 03/19/17 12:06 Dose: Not Given Labetalol HCl (Trandate) 20 mg IV Q6H PRN PRN Reason: Systolic Blood Pressure Last Admin: 03/19/17 12:08 Dose: 20 mg Levothyroxine Sodium (Synthroid) 25 mcg PO ACB [facility] Last Admin: 03/19/17 07:51 Dose: 25 mcg Losartan Potassium (Cozaar) 100 mg PO DAILY [facility] Last Admin: 03/19/17 12:08 Dose: 100 mg Magnesium Oxide (Mag-Ox) 400 mg PO BID [facility] Last Admin: 03/19/17 09:20 Dose: 400 mg Nystatin (Nystatin Oral Susp) 5 ml PO QID [facility] Last Admin: 03/19/17 14:28 Dose: 5 ml Pantoprazole Sodium (Protonix Ec Tab) 40 mg PO ACB [facility] Last Admin: 03/19/17 07:50 Dose: 40 mg Potassium Chloride (K-Dur 20 Meq Er Tab) 20 meq PO ONCE ONE Stop: 03/19/17 15:01 - Labs Labs: 03/19/17 05:30 03/19/17 05:30 PT 11.8 SECONDS (9.4-12.5) 03/16/17 16:25 INR 1.03 (0.93-1.08) 03/16/17 16:25 APTT 29.3 Seconds (25.1-36.5) 03/16/17 16:25 Attending/Attestation - Attestation I have personally seen and examined this patient.: Yes I have fully participated in the care of the patient.: Yes I have reviewed all pertinent clinical information, including history, physical exam and plan: Yes Notes (Text): 03/19/17 15:00 Attending note; Patient seen and examined with resident in ICU. patient is 82-year-old female with past medical history of diabetes type 2, hypertension, hyperlipidemia, hypothyroidism and gastroesophageal reflux disease presents with altered mental status secondary to dementia vs CVA vs delirium due to UTI; code stroke called when patient was noted to have profound left sided weakness, not previously noted. Showed new infarct. CT angios showed acute thrombus. Case discussed with neurology in detail. Treated with Integrilin drip. Currently started on aspirin and Plavix. Repeat CT head ordered for this afternoon to rule out hemorrhagic conversion. PT evaluation requested. The patient might need acute rehabilitation. Speech and swallow evaluation appreciated. Started on pure diet. Aspiration precautions ordered. Monitor the patient closely in ICU. Case discussed with PMD in detail.
[2017-03-18] MEDS: Magnesium Oxide 400 mg Tab UD PO SCH (17:23)
--- NOTE | 2017-03-18 19:13 | CP.PCM.PN ---
Subjective - Date & Time of Evaluation Date of Evaluation: 03/18/17 Time of Evaluation: 18:45 - Subjective Subjective: Infectious Disease Follow Up: March 18, 2017 Patient is a 82yo female with past medical history of diabetes mellitus type 2, hypertension, hyperlipidemia, hypothyroidism and GERD that presents accompanied by family with reports of increased lethargy, weakness and altered mental status. Per patients son, over the course of the last couple months family had noticed a change in her personality and having become more forgetful as of late. Additionally, over the last several days patient had been bed bound, unable to care for herself and has had a lack of appetite. Family reports that she had been to her PMD, Dr. Head several weeks prior and was reportedly treated for a UTI. She had also been scheduled to see Dr. Wan (hematology/ oncology) for workup of possible leukemia. Family reported that when they came to visit today she appeared confused, weak and lethargic which prompted their visit to the emergency room. Patient denied chest pain, palpitations, SOB, abdominal pain, nausea, vomiting, fever, chills, cough. Diagnosed with stroke. The patient with left sided weakness and facial droop which is new to her. Recently treated for a UTI. Her speech is still garbled. She appears confused. Leukocytosis still mildly elevated... secondary to stroke? Objective - Vital Signs/Intake and Output Vital Signs (last 24 hours): Temp Pulse Resp BP Pulse Ox 97.5 F L 69 23 129/73 93 L 03/18/17 12:00 03/18/17 10:00 03/18/17 10:00 03/18/17 10:00 03/18/17 10:00 Intake and Output: 03/18/17 03/18/17 06:59 18:59 Intake Total 1560 Output Total 250 Balance 1310 - Medications Medications: Current Medications Aspirin (Ecotrin) 81 mg PO DAILY [facility] Atorvastatin Calcium (Lipitor) 40 mg PO DAILY [facility] Last Admin: 03/18/17 10:33 Dose: 40 mg Clopidogrel Bisulfate (Plavix) 75 mg PO DAILY [facility] Hydralazine HCl (Apresoline) 10 mg IVP Q6 PRN PRN Reason: Systolic Blood Pressure Sodium Chloride (Sodium Chloride 0.9%) 1,000 mls @ 100 mls/hr IV .Q10H [facility] Last Admin: 03/18/17 16:46 Dose: 100 mls/hr Insulin Human Lispro (Humalog Low) 0 units SC ACHS [facility] PRN Reason: Protocol Last Admin: 03/18/17 16:35 Dose: Not Given Levothyroxine Sodium (Synthroid) 25 mcg PO ACB [facility] Last Admin: 03/17/17 08:24 Dose: Not Given Magnesium Oxide (Mag-Ox) 400 mg PO BID [facility] Last Admin: 03/18/17 17:23 Dose: 400 mg Non-Formulary Medication (Hydrochlorothiazide/Valsarta [Diovan Hct 12.5 Mg-160 Mg]) 1 tab PO DAILY [facility] Last Admin: 03/17/17 12:57 Dose: Not Given Nystatin (Nystatin Oral Susp) 5 ml PO QID [facility] Last Admin: 03/18/17 17:23 Dose: 5 ml Pantoprazole Sodium (Protonix Ec Tab) 40 mg PO ACB [facility] - Labs Labs: 03/18/17 05:45 03/18/17 05:45 PT 11.8 SECONDS (9.4-12.5) 03/16/17 16:25 INR 1.03 (0.93-1.08) 03/16/17 16:25 APTT 29.3 Seconds (25.1-36.5) 03/16/17 16:25 - Constitutional Appears: Unkempt, Confused - Head Exam Head Exam: ATRAUMATIC, NORMOCEPHALIC - Eye Exam Eye Exam: EOMI, PERRL Pupil Exam: NORMAL ACCOMODATION, PERRL - ENT Exam ENT Exam: Mucous Membranes Moist, Normal External Ear Exam, TM's Normal Bilaterally - Neck Exam Neck Exam: Full ROM, Normal Inspection - Respiratory Exam Respiratory Exam: Clear to Ausculation Bilateral, NORMAL BREATHING PATTERN. absent: Rales, Rhonchi, Wheezes - Cardiovascular Exam Cardiovascular Exam: REGULAR RHYTHM, RRR, +S1, +S2 - GI/Abdominal Exam GI & Abdominal Exam: Soft, Normal Bowel Sounds. absent: Distended, Tenderness - Extremities Exam Extremities Exam: absent: Joint Swelling, Pedal Edema - Neurological Exam Neurological Exam: Alert, Awake Additional comments: weakness in left side, left facial droop, speech is somewhat garbled. Decreased sensation of the left side of face. AAO x 1-2 - Skin Skin Exam: Dry, Intact, Normal Color Assessment and Plan - Assessment and Plan (Free Text) Assessment: 82 yo female with recent UTI treatment presenting with AMS and residual left sided weakness from stroke on this hospitalization. Supportive care. Mild leukocytosis. Urine cultures appear negative. Urinalysis showed no leukocyte esterase or nitrates. Stroke leading to this hospitalization. Would not start additional antibiotics at this time. Supportive care. In fact, would hold off on antibiotics at this point in time. I do not see any infectious issues at this time. Thank you for allowing me to participate in the care of the patient, we will follow with you. IF no infectious issues found within the next 24 hours, will sign off.
--- NOTE | 2017-03-18 21:14 | CT ---
EXAM: CT Head Without Intravenous Contrast CLINICAL HISTORY: 82 years old, female; Signs and symptoms; Other: Monitor TECHNIQUE: Axial computed tomography images of the head/brain without intravenous contrast. All CT scans at this facility use one or more dose reduction techniques, viz.: automated exposure control; ma/kV adjustment per patient size (including targeted exams where dose is matched to indication; i.e. head); or iterative reconstruction technique. Coronal and sagittal reformatted images were created and reviewed. COMPARISON: CTA HEAD NECK BUNDLE 2017-03-18 10:16 FINDINGS: Brain: [id number] atrophy. Small amount of subarachnoid hemorrhage within right frontal region, similar to minimally increased from previous examination. No mass. Few scattered foci of decreased attenuation within periventricular/subcortical white matter. Redemonstration of acute infarct involving right basal ganglia/bey radiata, similar to minimally increased from previous examination. Midline shift: None. Ventricles: No hydrocephalus. Bones/joints: No acute fracture. Soft tissues: Unremarkable. Vasculature: Atherosclerotic disease of intracranial arteries. Sinuses: Moderate mucosal thickening of ethmoid, sphenoid sinuses. Air-fluid level within RIGHT sphenoid sinus. Mastoid air cells: Opacification of mastoids. Orbits: Unremarkable as visualized. IMPRESSION: 1. Evolving acute infarction within right basal ganglia/bey radiata. 2. Small subarachnoid hemorrhage. 3. Incidental/non-acute findings are described above.
[2017-03-19] MEDS: Insulin Lispro (humaLOG) LOW Coverage SC SCH ×4 (05:24→22:01)
[2017-03-19 06:42] LABS: BASO # 0.01 [, K/mm3] (0.0-2.0); BASO % 0.1 % (0.0-3.0); EOS % 0.2 % (1.5-5.0); GRAN # 12.28 (1.4-6.5); GRAN % 85.7 % (50.0-68.0); HEMOGLOBIN 11.2 g/dL (12.0-16.0); LYMPH # 1.2 (1.2-3.4); LYMPH % 8.6 % (22.0-35.0); MEAN CELL VOLUME 96.7 fl (80.0-105.0); MEAN CORPUSCULAR HEMOGLOBIN 30.4 pg (25.0-35.0); MEAN CORPUSCULAR HGB CONC 31.4 g/dl (31.0-37.0); MEAN PLATELET VOLUME 10.5 fl (7.0-11.0); MONO # 0.8 (0.1-0.6); MONO % 5.4 % (1.0-6.0); RBC 3.69 [, 10^6/uL] (3.5-6.1); RED CELL DISTRIBUTION WIDTH 13.6 % (11.5-14.5); WHITE BLOOD COUNT 14.3 [, 10^3/ul] (4.5-11.0)
[2017-03-19 07:06] LABS: ALBUMIN 3.1 g/dL (3.0-4.8); ALT/SGPT 26 U/L (7-56); AST/SGOT 20 U/L (14-36); BLOOD UREA NITROGEN 8 mg/dL (7-21); CALCIUM 8.5 mg/dL (8.4-10.5); GFR AFRICAN-AMERICAN > 60; GFR NON-AFRICAN AMERICAN > 60
--- NOTE | 2017-03-19 07:15 | CP.PCM.PN ---
Subjective - Date & Time of Evaluation Date of Evaluation: 03/19/17 Time of Evaluation: 07:11 - Subjective Subjective: Ms. Shields was seen and examined at the bedside in ICU. She is alert, awake and able to answer simple questions. She denies any headache, dizziness, blurred vision, nausea, orvomiting. She is able to follow simple commands. The repeat CT of the head 03/18/17 showed evolving acte infarction within the right basal ganglia/bey. Small subarachnoid hemorrhage Objective - Vital Signs/Intake and Output Vital Signs (last 24 hours): Temp Pulse Resp BP Pulse Ox 98.5 F 75 19 185/102 H 96 03/18/17 16:00 03/18/17 22:00 03/18/17 17:00 03/18/17 21:54 03/18/17 18:00 - Medications Medications: Current Medications Aspirin (Ecotrin) 81 mg PO DAILY [facility] Atorvastatin Calcium (Lipitor) 40 mg PO DAILY [facility] Last Admin: 03/18/17 10:33 Dose: 40 mg Clopidogrel Bisulfate (Plavix) 75 mg PO DAILY [facility] Hydralazine HCl (Apresoline) 10 mg IVP Q6 PRN PRN Reason: Systolic Blood Pressure Last Admin: 03/18/17 21:54 Dose: 10 mg Sodium Chloride (Sodium Chloride 0.9%) 1,000 mls @ 100 mls/hr IV .Q10H [facility] Last Admin: 03/18/17 16:46 Dose: 100 mls/hr Insulin Human Lispro (Humalog Low) 0 units SC ACHS [facility] PRN Reason: Protocol Last Admin: 03/19/17 05:24 Dose: Not Given Levothyroxine Sodium (Synthroid) 25 mcg PO ACB [facility] Last Admin: 03/17/17 08:24 Dose: Not Given Magnesium Oxide (Mag-Ox) 400 mg PO BID [facility] Last Admin: 03/18/17 17:23 Dose: 400 mg Non-Formulary Medication (Hydrochlorothiazide/Valsarta [Diovan Hct 12.5 Mg-160 Mg]) 1 tab PO DAILY [facility] Last Admin: 03/17/17 12:57 Dose: Not Given Nystatin (Nystatin Oral Susp) 5 ml PO QID [facility] Last Admin: 03/18/17 21:55 Dose: 5 ml Pantoprazole Sodium (Protonix Ec Tab) 40 mg PO ACB [facility] - Labs Labs: 03/19/17 05:30 03/19/17 05:30 PT 11.8 SECONDS (9.4-12.5) 03/16/17 16:25 INR 1.03 (0.93-1.08) 03/16/17 16:25 APTT 29.3 Seconds (25.1-36.5) 03/16/17 16:25 - Constitutional Appears: No Acute Distress - Head Exam Head Exam: NORMAL INSPECTION - Neurological Exam Neurological Exam: Alert, Awake Neuro motor strength exam: Left Upper Extremity: 0, Right Upper Extremity: 4, Left Lower Extremity: 2/1, Right Lower Extremity: 4 Additional comments: Awake, Oriented x3, Left Upper Extremity: 0, Right Upper Extremity: 4, Left Lower Extremity: 2/1, Right Lower Extremity: 4, NIHSS = 12 Assessment and Plan (1) Ischemic stroke Assessment & Plan: Case discussed with Dr. Gooden, continue all current medical, physical, occupational, and speech therapies. Recommend to hold plavix , but continue aspirin. will repeat CT of the head in am. Status: Acute
[2017-03-19] MEDS ORDERED: Potassium Chloride 40 mEq/30 ml LIQ UD PO ONE (07:34)
[2017-03-19] MEDS: Pantoprazole 40 mg EC Tab PO SCH (07:50)
[2017-03-19] MEDS: Levothyroxine 25 MCG TAB PO SCH (07:51)
[2017-03-19] MEDS: Sodium Chloride 0.9% 1,000 ML IV SCH (07:53)
--- NOTE | 2017-03-19 08:04 | CP.PCM.PN ---
<Grazyna Cotton - Last Filed: 03/19/17 10:42> Subjective - Date & Time of Evaluation Date of Evaluation: 03/19/17 Time of Evaluation: 08:01 - Subjective Subjective: ICU Progress Note for Jae Adan PGY2 Patient seen and examined at bedside. As per nursing staff, there were no acute overnight events. She reports feeling well and is resting comfortably in bed. She denies chest pain, shortness of breath, numbness/tingling, fever/chills, dysuria, nausea/vomiting/diarrhea, or weakness. Objective - Vital Signs/Intake and Output Vital Signs (last 24 hours): Temp Pulse Resp BP Pulse Ox 98.5 F 75 19 185/102 H 96 03/18/17 16:00 03/18/17 22:00 03/18/17 17:00 03/18/17 21:54 03/18/17 18:00 - Medications Medications: Current Medications Aspirin (Ecotrin) 81 mg PO DAILY [facility] Atorvastatin Calcium (Lipitor) 40 mg PO DAILY [facility] Last Admin: 03/18/17 10:33 Dose: 40 mg Hydralazine HCl (Apresoline) 10 mg IVP Q6 PRN PRN Reason: Systolic Blood Pressure Last Admin: 03/18/17 21:54 Dose: 10 mg Sodium Chloride (Sodium Chloride 0.9%) 1,000 mls @ 100 mls/hr IV .Q10H [facility] Last Admin: 03/19/17 07:53 Dose: 100 mls/hr Potassium Chloride (Potassium Chloride 10 Meq/100 Ml) 10 meq in 100 mls @ 50 mls/hr IVPB ONCE ONE Stop: 03/19/17 09:33 Last Admin: 03/19/17 07:50 Dose: 50 mls/hr Insulin Human Lispro (Humalog Low) 0 units SC ACHS [facility] PRN Reason: Protocol Last Admin: 03/19/17 07:47 Dose: Not Given Levothyroxine Sodium (Synthroid) 25 mcg PO ACB [facility] Last Admin: 03/19/17 07:51 Dose: 25 mcg Magnesium Oxide (Mag-Ox) 400 mg PO BID [facility] Last Admin: 03/18/17 17:23 Dose: 400 mg Non-Formulary Medication (Hydrochlorothiazide/Valsarta [Diovan Hct 12.5 Mg-160 Mg]) 1 tab PO DAILY [facility] Last Admin: 03/17/17 12:57 Dose: Not Given Nystatin (Nystatin Oral Susp) 5 ml PO QID [facility] Last Admin: 03/18/17 21:55 Dose: 5 ml Pantoprazole Sodium (Protonix Ec Tab) 40 mg PO ACB [facility] Last Admin: 03/19/17 07:50 Dose: 40 mg - Labs Labs: 03/19/17 05:30 03/19/17 05:30 PT 11.8 SECONDS (9.4-12.5) 03/16/17 16:25 INR 1.03 (0.93-1.08) 03/16/17 16:25 APTT 29.3 Seconds (25.1-36.5) 03/16/17 16:25 - Constitutional Appears: No Acute Distress - Head Exam Head Exam: ATRAUMATIC, NORMAL INSPECTION, NORMOCEPHALIC - Eye Exam Eye Exam: PERRL Pupil Exam: PERRL Additional comments: R gaze preference - ENT Exam ENT Exam: Mucous Membranes Moist - Respiratory Exam Respiratory Exam: Clear to Ausculation Bilateral, NORMAL BREATHING PATTERN. absent: Rales, Rhonchi, Wheezes - Cardiovascular Exam Cardiovascular Exam: REGULAR RHYTHM, +S1, +S2. absent: Gallop, Rubs, Murmur - GI/Abdominal Exam GI & Abdominal Exam: Soft, Normal Bowel Sounds. absent: Tenderness, Mass, Rebound - Extremities Exam Extremities Exam: Normal Inspection. absent: Calf Tenderness, Pedal Edema - Neurological Exam Neurological Exam: Alert, Awake, Oriented x3 Neuro motor strength exam: Left Upper Extremity: 0, Right Upper Extremity: 5, Left Lower Extremity: 2/1, Right Lower Extremity: 5 Additional comments: L sided facial droop, R gaze preference - Psychiatric Exam Psychiatric exam: Normal Affect, Normal Mood - Skin Skin Exam: Dry, Warm Assessment and Plan - Assessment and Plan (Free Text) Assessment: This is an 82yo Female with past medical history of DM2, HTN, HLD, hypothyroidism and GERD who was admitted for AMS. Patient was found to have UTI. Patient was found weak on her L side with R gaze preference. Code stroke was called and was found to have R CVA. Brain MRI showed R basal ganglia CVA and bey radiata in distribution of R MCA. CTA showed 5mm of intraluminal filling defect in distal R M1 segment compatible with intraluminal thrombus. No carotid stenosis was noted. Repeat Head CT showed evolving R MCA infarct and small subarachnoid hemorrhage. Plan: Neuro: R CVA of MCA with now small subarachnoid hemorrhage Continue ASA, Plavix was d/c Neuro consulted-recs appreciated Neuro checks Physical therapy Speech therapy and occupational therapy CV: Hx of HTN Cardio consulted-recs appreciated Maintain SBP around 120s Cozaar added as per cardio Labetolol prn SBP >140, hold if HR <60 Echo done, pending read Continue Lipitor Resp: Maintain SpO2>90% Patient comfortable on Nasal cannula Protective lung ventilation strategy GI: Pt passed speech and swallow Continue Puree diet Nystatin swish and swallow for oral thrush Heme: Hgb stable Pt has small subarachnoid bleed Continue to monitor Nephro: Hypokalemia K:3.0 Will continue to monitor electrolytes and replaced as needed ID: Leukocytosis (stable)--(can be secondary to CVA v. 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 Vida Cotton PGY2 <Manish Bach - Last Filed: 03/19/17 16:57> Objective - Vital Signs/Intake and Output Vital Signs (last 24 hours): Temp Pulse Resp BP Pulse Ox 99.5 F 71 19 172/88 H 96 03/19/17 12:00 03/19/17 14:00 03/18/17 17:00 03/19/17 12:08 03/18/17 18:00 - Medications Medications: Current Medications Aspirin (Ecotrin) 81 mg PO DAILY [facility] Last Admin: 03/19/17 09:20 Dose: 81 mg Atorvastatin Calcium (Lipitor) 40 mg PO DAILY [facility] Last Admin: 03/19/17 09:20 Dose: 40 mg Insulin Human Lispro (Humalog Low) 0 units SC ACHS [facility] PRN Reason: Protocol Last Admin: 03/19/17 12:06 Dose: Not Given Labetalol HCl (Trandate) 20 mg IV Q6H PRN PRN Reason: Systolic Blood Pressure Last Admin: 03/19/17 12:08 Dose: 20 mg Levothyroxine Sodium (Synthroid) 25 mcg PO ACB [facility] Last Admin: 03/19/17 07:51 Dose: 25 mcg Losartan Potassium (Cozaar) 100 mg PO DAILY [facility] Last Admin: 03/19/17 12:08 Dose: 100 mg Magnesium Oxide (Mag-Ox) 400 mg PO BID [facility] Last Admin: 03/19/17 09:20 Dose: 400 mg Nystatin (Nystatin Oral Susp) 5 ml PO QID [facility] Last Admin: 03/19/17 14:28 Dose: 5 ml Pantoprazole Sodium (Protonix Ec Tab) 40 mg PO ACB [facility] Last Admin: 03/19/17 07:50 Dose: 40 mg - Labs Labs: 03/19/17 05:30 03/19/17 05:30 PT 11.8 SECONDS (9.4-12.5) 03/16/17 16:25 INR 1.03 (0.93-1.08) 03/16/17 16:25 APTT 29.3 Seconds (25.1-36.5) 03/16/17 16:25 Attending/Attestation - Attestation I have personally seen and examined this patient.: Yes I have fully participated in the care of the patient.: Yes I have reviewed all pertinent clinical information, including history, physical exam and plan: Yes Notes (Text): 03/19/17 16:52 82 yo female with ischemic stroke converted to SAH and IPH, without translation into significant neuro worsening. Protecting airways. Will maintain BP 120-140, will maintain normothermia euvolemia, euglycemia and 02sat>90%. DVT/GI prophylaxis ccm time 40 min
[2017-03-19] MEDS: Nystatin 100,000 Units/ml Oral Susp 5 ml UD PO SCH ×4 (09:20→22:04)
[2017-03-19] MEDS: Magnesium Oxide 400 mg Tab UD PO SCH ×2 (09:20→17:25)
[2017-03-19] MEDS ORDERED: Sodium Chloride 0.9% 1,000 ML IV SCH (09:47)
[2017-03-19] MEDS: Labetalol 5 mg/ml Inj 20ML IV PRN (12:08)
--- NOTE | 2017-03-19 13:06 | CP.PCM.PN ---
<Sal Simonmitchell - Last Filed: 03/19/17 13:02> Subjective - Date & Time of Evaluation Date of Evaluation: 03/19/17 Time of Evaluation: 07:30 - Subjective Subjective: Felicity Simon DO PGY1 - Internal Medicine Progress Note Patient seen and examined at bedside. Patient has no particular complaints. She denies any headache, chest pain, SOB. She is awake, alert, oriented to person and time, but required reorientation to place. She reports that she is not aware of and does not comprehend the fact that she had a stroke. Objective - Vital Signs/Intake and Output Vital Signs (last 24 hours): Temp Pulse Resp BP Pulse Ox 99 F 83 19 172/88 H 96 03/19/17 08:00 03/19/17 12:08 03/18/17 17:00 03/19/17 12:08 03/18/17 18:00 - Medications Medications: Current Medications Aspirin (Ecotrin) 81 mg PO DAILY [facility] Last Admin: 03/19/17 09:20 Dose: 81 mg Atorvastatin Calcium (Lipitor) 40 mg PO DAILY [facility] Last Admin: 03/19/17 09:20 Dose: 40 mg Insulin Human Lispro (Humalog Low) 0 units SC ACHS [facility] PRN Reason: Protocol Last Admin: 03/19/17 12:06 Dose: Not Given Labetalol HCl (Trandate) 20 mg IV Q6H PRN PRN Reason: Systolic Blood Pressure Last Admin: 03/19/17 12:08 Dose: 20 mg Levothyroxine Sodium (Synthroid) 25 mcg PO ACB [facility] Last Admin: 03/19/17 07:51 Dose: 25 mcg Losartan Potassium (Cozaar) 100 mg PO DAILY [facility] Last Admin: 03/19/17 12:08 Dose: 100 mg Magnesium Oxide (Mag-Ox) 400 mg PO BID [facility] Last Admin: 03/19/17 09:20 Dose: 400 mg Nystatin (Nystatin Oral Susp) 5 ml PO QID [facility] Last Admin: 03/19/17 09:20 Dose: 5 ml Pantoprazole Sodium (Protonix Ec Tab) 40 mg PO ACB [facility] Last Admin: 03/19/17 07:50 Dose: 40 mg Potassium Chloride (K-Dur 20 Meq Er Tab) 20 meq PO ONCE ONE Stop: 03/19/17 15:01 - Labs Labs: 03/19/17 05:30 03/19/17 05:30 PT 11.8 SECONDS (9.4-12.5) 03/16/17 16:25 INR 1.03 (0.93-1.08) 03/16/17 16:25 APTT 29.3 Seconds (25.1-36.5) 03/16/17 16:25 - Constitutional Appears: Non-toxic, No Acute Distress, Confused - Head Exam Head Exam: ATRAUMATIC, NORMOCEPHALIC - Eye Exam Eye Exam: Normal appearance, PERRL Additional comments: Patient has rightward preferential gaze, and has left hemianopia - ENT Exam ENT Exam: Mucous Membranes Moist, Normal Exam - Neck Exam Neck Exam: Normal Inspection - Respiratory Exam Respiratory Exam: Clear to Ausculation Bilateral, NORMAL BREATHING PATTERN - Cardiovascular Exam Cardiovascular Exam: RRR, +S1, +S2 - GI/Abdominal Exam GI & Abdominal Exam: Soft, Normal Bowel Sounds. absent: Tenderness - Extremities Exam Extremities Exam: absent: Calf Tenderness, Pedal Edema - Neurological Exam Neurological Exam: Alert, Awake Neuro motor strength exam: Left Upper Extremity: 0, Right Upper Extremity: 5, Left Lower Extremity: 0, Right Lower Extremity: 5 Additional comments: Oriented x2, required reorientation to place Left sided facial droop involving the forehead, leftward tongue deviation - Psychiatric Exam Psychiatric exam: Normal Affect, Normal Mood - Skin Skin Exam: Dry, Intact, Normal Color Assessment and Plan - Assessment and Plan (Free Text) Assessment: 82yo female with history of DM type 2, hypertension, hyperlipidemia, hypothyroidism and GERD presents with altered mental status secondary to dementia vs CVA vs delirium due to UTI; code stroke called when patient was noted to have profound left sided weakness, not previously noted; 1. Altered mental status -Secondary to evolving CVA -CT Head in ER revealed no acute intracranial abnormalities; first repeat CT head showed interval infarct in right basal ganglia -Repeat head CT yesterday morning showed stable infarct; repeat head CT yesterday afternoon showed development of SAH -Discontinue plavix, continue ASA, per neuro -New BP goal, SBP 120-130 -Ordered repeat head CT today to rule out worsening SAH -CTA head/neck showed right MCA, distal M1 occlusion -Neurochecks Q2 -Continue PT, OT, and speech/swallow therapy -Neurology on consult; appreciate recs 2. Hypertension -New BP goal as above, considering new finding of SAH -PRN labetalol for SBP >140 3. Hyperlipidemia -Continue home statin 4. Hypothyroidism -Continue home synthroid 5. DM type 2 -Carb consistent diet -Fingersticks ACHS -Humalog ISS low dose 6. GI/DVT prophylaxis -Protonix/Heparin SC Patient seen and case discussed/reviewed with attending, Dr. Garcia <Logan Garcia - Last Filed: 03/19/17 15:08> Objective - Vital Signs/Intake and Output Vital Signs (last 24 hours): Temp Pulse Resp BP Pulse Ox 99.5 F 71 19 172/88 H 96 03/19/17 12:00 03/19/17 14:00 03/18/17 17:00 03/19/17 12:08 03/18/17 18:00 - Medications Medications: Current Medications Aspirin (Ecotrin) 81 mg PO DAILY [facility] Last Admin: 03/19/17 09:20 Dose: 81 mg Atorvastatin Calcium (Lipitor) 40 mg PO DAILY [facility] Last Admin: 03/19/17 09:20 Dose: 40 mg Insulin Human Lispro (Humalog Low) 0 units SC [facility] PRN Reason: Protocol Last Admin: 03/19/17 12:06 Dose: Not Given Labetalol HCl (Trandate) 20 mg IV Q6H PRN PRN Reason: Systolic Blood Pressure Last Admin: 03/19/17 12:08 Dose: 20 mg Levothyroxine Sodium (Synthroid) 25 mcg PO ACB [facility] Last Admin: 03/19/17 07:51 Dose: 25 mcg Losartan Potassium (Cozaar) 100 mg PO DAILY [facility] Last Admin: 03/19/17 12:08 Dose: 100 mg Magnesium Oxide (Mag-Ox) 400 mg PO BID [facility] Last Admin: 03/19/17 09:20 Dose: 400 mg Nystatin (Nystatin Oral Susp) 5 ml PO QID [facility] Last Admin: 03/19/17 14:28 Dose: 5 ml Pantoprazole Sodium (Protonix Ec Tab) 40 mg PO ACB [facility] Last Admin: 03/19/17 07:50 Dose: 40 mg - Labs Labs: 03/19/17 05:30 03/19/17 05:30 PT 11.8 SECONDS (9.4-12.5) 03/16/17 16:25 INR 1.03 (0.93-1.08) 03/16/17 16:25 APTT 29.3 Seconds (25.1-36.5) 03/16/17 16:25 Attending/Attestation - Attestation I have personally seen and examined this patient.: Yes I have fully participated in the care of the patient.: Yes I have reviewed all pertinent clinical information, including history, physical exam and plan: Yes Notes (Text): 03/19/17 15:02 Attending note; Patient seen and examined with resident in ICU. Patient's son and [id number]-att by the bedside. patient is 82-year-old female with past medical history of diabetes type 2, hypertension, hyperlipidemia, hypothyroidism and gastroesophageal reflux disease presents with altered mental status secondary to dementia vs CVA vs delirium due to UTI; code stroke called when patient was noted to have profound left sided weakness, not previously noted. CT head Showed new infarct. CT angios showed acute thrombus. Repeat head CT yesterday morning showed stable infarct; repeat head CT yesterday afternoon showed development of SAH. CT scan reviewed with the radiologist in detail. Currently patient has acute cerebral infarct with left hemiplegia and right gaze. Currently only on aspirin. Hypertension; continue YENNIFER inhibitor PT evaluation appreciated . The patient need acute rehabilitation. concert or lecture hall manager evaluation requested for discharge to acute rehabilitation. Speech and swallow evaluation appreciated. Started on pure diet. Aspiration precautions ordered. Evaluation with Redd trujillo requested for advanced directives. Patient is full code for now. Case discussed with PMD in detail.
--- NOTE | 2017-03-19 13:39 | CP.PCM.CON ---
History of Present Illness - History of Present Illness History of Present Illness: Palliative consult requested by Dr Jv Gannon Reason: Goals of care 82 year old female with history of DM, GERD and HTN who presented with lethargy , weakness and altered mental status. Family reports patient to be more forgetful, less able to perform ADL's and with decreased appetite during recent months. She has history of UTI several which was tx with antibiotic several weeks ago. She denied chest pain, palpitations, abdominal pain, nausea, vomiting fever or chills.Imaging of head showed and acute right basal ganglia/ bey infarct which small subarachnoid hemorrhage Social History: Former smoker, no alcohol or drug use. , resides with spouse. Family History: Non contributory Advance Care Planning: The patient does not have an Advanced Directive. Review of Systems: As per HPI, otherwise negative review Past Patient History - Past Social History Smoking Status: Former Smoker - CARDIAC Hx Hypercholesterolemia: Yes Hx Hypertension: Yes - PULMONARY Hx Respiratory Disorders: Yes Other/Comment: loose cough - NEUROLOGICAL Other/Comment: left facial droop, left side flaccid, tongue drooping to left side, new as of 2 1/2 days ago - HEENT Hx HEENT Problems: (unsure) - RENAL Hx Chronic Kidney Disease: (renal disease) - ENDOCRINE/METABOLIC Hx Diabetes Mellitus Type 2: Yes Hx Hypothyroidism: Yes - HEMATOLOGICAL/ONCOLOGICAL Other/Comment: pt has appt with dr fonseca on 03/18/17 dx cll referral by dr crouch - INTEGUMENTARY Other/Comment: long thick fingernails and toenails and dry scaley skin to feet, dry skin to legs, r cw area of dry brown skin 1cm round - MUSCULOSKELETAL/RHEUMATOLOGICAL Hx Falls: Yes (past) - GASTROINTESTINAL Hx Gastrointestinal Disorders: Yes (gi bleed) Hx Gastroesophageal Reflux: Yes - GENITOURINARY/GYNECOLOGICAL Hx Urinary Tract Infection: Yes (tx by dr crouch few wks ago) Other/Comment: mammo 04/2013 - PSYCHIATRIC Hx Substance Use: No - SURGICAL HISTORY Hx Surgeries: No (none as per son kenton) Meds Allergies/Adverse Reactions: Allergies Allergy/AdvReac Type Severity Reaction Status Date / Time Penicillins Allergy RASH Verified 03/16/17 15:33 Sulfa (Sulfonamide Allergy RASH Verified 03/16/17 15:33 Antibiotics) - Medications Medications: Current Medications Aspirin (Ecotrin) 81 mg PO DAILY [facility] Last Admin: 03/19/17 09:20 Dose: 81 mg Atorvastatin Calcium (Lipitor) 40 mg PO DAILY [facility] Last Admin: 03/19/17 09:20 Dose: 40 mg Insulin Human Lispro (Humalog Low) [address] [facility] PRN Reason: Protocol Last Admin: 03/19/17 12:06 Dose: Not Given Labetalol HCl (Trandate) 20 mg IV Q6H PRN PRN Reason: Systolic Blood Pressure Last Admin: 03/19/17 12:08 Dose: 20 mg Levothyroxine Sodium (Synthroid) 25 mcg PO ACB [facility] Last Admin: 03/19/17 07:51 Dose: 25 mcg Losartan Potassium (Cozaar) 100 mg PO DAILY [facility] Last Admin: 03/19/17 12:08 Dose: 100 mg Magnesium Oxide (Mag-Ox) 400 mg PO BID [facility] Last Admin: 03/19/17 09:20 Dose: 400 mg Nystatin (Nystatin Oral Susp) 5 ml PO QID [facility] Last Admin: 03/19/17 09:20 Dose: 5 ml Pantoprazole Sodium (Protonix Ec Tab) 40 mg PO ACB [facility] Last Admin: 03/19/17 07:50 Dose: 40 mg Potassium Chloride (K-Dur 20 Meq Er Tab) 20 meq PO ONCE ONE Stop: 03/19/17 15:01 Physical Exam - Constitutional Appears: Chronically Ill - Eye Exam Eye Exam: Normal appearance, PERRL - ENT Exam ENT Exam: Mucous Membranes Moist, Normal Oropharynx - Neck Exam Neck exam: Positive for: Normal Inspection - Respiratory Exam Respiratory Exam: Clear to Auscultation Bilateral, NORMAL BREATHING PATTERN - Cardiovascular Exam Cardiovascular Exam: REGULAR RHYTHM, +S1, +S2 - GI/Abdominal Exam GI & Abdominal Exam: Normal Bowel Sounds, Soft - Extremities Exam Extremities exam: Positive for: pedal pulses present Additional comments: left uy paresis - Back Exam Back exam: NORMAL INSPECTION - Skin Skin Exam: Dry, Warm - Additional Findings Additional findings: Palliate performance scale rating 40% Results - Vital Signs Recent Vital Signs: Last Vital Signs Temp 99.5 F 03/19/17 12:00 Pulse 83 03/19/17 12:08 Resp 19 03/18/17 17:00 BP 172/88 H 03/19/17 12:08 Pulse Ox 96 03/18/17 18:00 - Labs Result Diagrams: 03/20/17 06:00 03/20/17 06:00 Labs: Laboratory Results - last 24 hr 03/18/17 03/18/17 03/19/17 15:50 21:40 05:30 WBC 14.3 H RBC 3.69 Hgb 11.2 L Hct 35.7 L MCV 96.7 MCH 30.4 MCHC 31.4 RDW 13.6 Plt Count 289 MPV 10.5 Gran % 85.7 H Lymph % (Auto) 8.6 L [place] % (Auto) 5.4 Eos % (Auto) 0.2 L Baso % (Auto) 0.1 Gran # 12.28 H Lymph # 1.2 [place] # 0.8 H Eos # 0.0 Baso # 0.01 Sodium Potassium Chloride Carbon Dioxide Anion Gap BUN Creatinine Est GFR ( Amer) Est GFR (Non-Af Amer) POC Glucose (mg/dL) 96 108 Random Glucose Calcium Total Bilirubin AST ALT Alkaline Phosphatase Total Protein Albumin Globulin Albumin/Globulin Ratio 03/19/17 03/19/17 05:30 11:57 WBC RBC Hgb Hct MCV MCH MCHC RDW Plt Count MPV Gran % Lymph % (Auto) [place] % (Auto) Eos % (Auto) Baso % (Auto) Gran # Lymph # [place] # Eos # Baso # Sodium 141 Potassium 3.0 L Chloride 106 Carbon Dioxide 25 Anion Gap 13 BUN 8 Creatinine 0.6 L Est GFR ( Amer) > 60 Est GFR (Non-Af Amer) > 60 POC Glucose (mg/dL) 138 H Random Glucose 122 H Calcium 8.5 Total Bilirubin 0.8 AST 20 ALT 26 Alkaline Phosphatase 56 Total Protein 6.3 Albumin 3.1 Globulin 3.2 Albumin/Globulin Ratio 1.0 L Assessment & Plan - Assessment and Plan (Free Text) Assessment: 82 year old female with history of DM, HTN, HLD who is admitted with altered mental status, right basal ganglia and bey infarct and left sided weakness. Patient is alert and oriented. She is able to answer questions approbatory. Patient states she does not have a Living Will. She is able to understands benefits and burdens of resuscitation. She states she wants to remain full code at this time I had the same discussion again with patient in the presence of her son Dc. Patient repeats that she ants CPR/intubation if necessary. Patient was also asked who she wants to be her health care surrogate. The patient indicated she wants her son Selvin Lund (Dc)[phone] and Percy. Encouraged family to consider filling out Living will or POLST and designating health care proxy prior to discharge Time spent with patient and family in goals of care and advance care planning discussions, 30 minutes
--- NOTE | 2017-03-19 14:11 | PN ---
DATE: 03/19/2017 REASON FOR CONSULTATION AND FOLLOWUP: Cardiac evaluation, CVA, left-sided weakness. SUBJECTIVE: The patient denies any chest pain, shortness of breath, or any palpitations. OBJECTIVE: GENERAL: Not in any apparent distress. VITAL SIGNS: Temperature afebrile, heart rate 75, blood pressure 131/49. HEENT: PERRLA. Extraocular muscles intact. NECK: Supple. No carotid bruits or thyromegaly. CHEST: Clear to auscultation. HEART: S1 and S2, regular. ABDOMEN: Soft. EXTREMITIES: Clubbing and cyanosis negative. LABORATORY DATA: Blood workup as follows: WBC , hemoglobin , hematocrit 35.7, platelet count 289. Chemistry shows sodium 141, potassium 3, chloride 106, carbon dioxide 25, anion gap of 13, BUN 8, and creatinine 0.6. IMPRESSION: Hypokalemia, cerebrovascular accident, right preference gaze, left-sided weakness, acute cerebrovascular accident with middle cerebral artery territory infarct. RECOMMENDATIONS: Continue aspirin and Plavix as per neurologist. We will start beta-helga and YENNIFER inhibitors, control blood pressure. Continue p.r.n. hydralazine. We will follow with you. Thank you Dr. Garcia for the opportunity in taking care of Marian Shields. Hector Lopez MD
--- NOTE | 2017-03-19 14:18 | CT ---
PROCEDURE: CT HEAD WITHOUT CONTRAST. HISTORY: f/u CVA COMPARISON: None available. TECHNIQUE: Axial computed tomography images were obtained through the head/brain without intravenous contrast. Radiation dose: Total exam DLP = 796 mGy-cm. This CT exam was performed using one or more of the following dose reduction techniques: Automated exposure control, adjustment of the mA and/or kV according to patient size, and/or use of iterative reconstruction technique. FINDINGS: HEMORRHAGE: New subcortical hemorrhages can be seen in the right posterior frontal lobe. A small amount of subarachnoid blood can be seen within the occipital sulci on the right. BRAIN: No mass effect or edema. There is a large recent infarct of the right basal ganglia and bey radiata. This has become more well-defined. This was demonstrated on previous CT and MRI studies. VENTRICLES: Unremarkable. No hydrocephalus. CALVARIUM: Unremarkable. PARANASAL SINUSES: Unremarkable as visualized. No significant inflammatory changes. MASTOID AIR CELLS: Unremarkable as visualized. No inflammatory changes. OTHER FINDINGS: None. IMPRESSION: New small subcortical hemorrhages in the right posterior frontal lobe. Small amount of subarachnoid blood in the right occipital lobe. Large infarct of the right basal ganglia and bey radiata which has become more well defined
--- NOTE | 2017-03-19 14:47 | CP.PCM.PN ---
Subjective - Date & Time of Evaluation Date of Evaluation: 03/19/17 Time of Evaluation: 14:00 - Subjective Subjective: Infectious Disease Follow Up: March 19, 2017 Patient is a 82yo female with past medical history of diabetes mellitus type 2, hypertension, hyperlipidemia, hypothyroidism and GERD that presents accompanied by family with reports of increased lethargy, weakness and altered mental status. Per patients son, over the course of the last couple months family had noticed a change in her personality and having become more forgetful as of late. Additionally, over the last several days patient had been bed bound, unable to care for herself and has had a lack of appetite. Family reports that she had been to her PMD, Dr. Head several weeks prior and was reportedly treated for a UTI. She had also been scheduled to see Dr. Wan (hematology/ oncology) for workup of possible leukemia. Family reported that when they came to visit today she appeared confused, weak and lethargic which prompted their visit to the emergency room. Patient denied chest pain, palpitations, SOB, abdominal pain, nausea, vomiting, fever, chills, cough. Diagnosed with stroke. The patient with left sided weakness and facial droop which is new to her. Recently treated for a UTI. Her speech is still garbled. She appears confused. Leukocytosis still mildly elevated... secondary to stroke? No obvious infectious etiology found at this time. Objective - Vital Signs/Intake and Output Vital Signs (last 24 hours): Temp Pulse Resp BP Pulse Ox 99.5 F 83 19 172/88 H 96 03/19/17 12:00 03/19/17 12:08 03/18/17 17:00 03/19/17 12:08 03/18/17 18:00 - Medications Medications: Current Medications Aspirin (Ecotrin) 81 mg PO DAILY [facility] Last Admin: 03/19/17 09:20 Dose: 81 mg Atorvastatin Calcium (Lipitor) 40 mg PO DAILY [facility] Last Admin: 03/19/17 09:20 Dose: 40 mg Insulin Human Lispro (Humalog Low) 0 units SC ACHS [facility] PRN Reason: Protocol Last Admin: 03/19/17 12:06 Dose: Not Given Labetalol HCl (Trandate) 20 mg IV Q6H PRN PRN Reason: Systolic Blood Pressure Last Admin: 03/19/17 12:08 Dose: 20 mg Levothyroxine Sodium (Synthroid) 25 mcg PO ACB [facility] Last Admin: 03/19/17 07:51 Dose: 25 mcg Losartan Potassium (Cozaar) 100 mg PO DAILY [facility] Last Admin: 03/19/17 12:08 Dose: 100 mg Magnesium Oxide (Mag-Ox) 400 mg PO BID [facility] Last Admin: 03/19/17 09:20 Dose: 400 mg Nystatin (Nystatin Oral Susp) 5 ml PO QID [facility] Last Admin: 03/19/17 14:28 Dose: 5 ml Pantoprazole Sodium (Protonix Ec Tab) 40 mg PO ACB [facility] Last Admin: 03/19/17 07:50 Dose: 40 mg Potassium Chloride (K-Dur 20 Meq Er Tab) 20 meq PO ONCE ONE Stop: 03/19/17 15:01 - Labs Labs: 03/19/17 05:30 03/19/17 05:30 PT 11.8 SECONDS (9.4-12.5) 03/16/17 16:25 INR 1.03 (0.93-1.08) 03/16/17 16:25 APTT 29.3 Seconds (25.1-36.5) 03/16/17 16:25 - Constitutional Appears: Unkempt, Confused - Head Exam Head Exam: ATRAUMATIC, NORMOCEPHALIC - Eye Exam Eye Exam: EOMI, PERRL Pupil Exam: NORMAL ACCOMODATION, PERRL - ENT Exam ENT Exam: Mucous Membranes Moist, Normal External Ear Exam, TM's Normal Bilaterally - Neck Exam Neck Exam: Full ROM, Normal Inspection - Respiratory Exam Respiratory Exam: Clear to Ausculation Bilateral, NORMAL BREATHING PATTERN. absent: Rales, Rhonchi, Wheezes - Cardiovascular Exam Cardiovascular Exam: REGULAR RHYTHM, RRR, +S1, +S2 - GI/Abdominal Exam GI & Abdominal Exam: Soft, Normal Bowel Sounds. absent: Distended, Tenderness - Extremities Exam Extremities Exam: Joint Swelling, Pedal Edema - Neurological Exam Neurological Exam: Awake Additional comments: weakness in left side, left facial droop, speech is somewhat garbled. Decreased sensation of the left side of face. AAO x 1-2 - Skin Skin Exam: Dry, Intact, Normal Color Assessment and Plan - Assessment and Plan (Free Text) Assessment: 82 yo female with recent UTI treatment presenting with AMS and residual left sided weakness from stroke on this hospitalization. Supportive care. Mild leukocytosis. Urine cultures appear negative. Urinalysis showed no leukocyte esterase or nitrates. Stroke leading to this hospitalization. Would not start additional antibiotics at this time. Supportive care. In fact, would hold off on antibiotics at this point in time. I do not see any infectious issues at this time. Thank you for allowing me to participate in the care of the patient, at this time no obvious infectious etiology. We will sign off the case. Please reconsult as needed.
[2017-03-19] MEDS ORDERED: Potassium Chloride 20 mEq ER Tab PO ONE (15:00)
--- NOTE | 2017-03-19 16:28 | CARD ---
APPROVED REPORT EXAM: Two-dimensional and M-mode echocardiogram with Doppler and color Doppler. INDICATION CVA/TIA BUBBLE STUDY 2D DIMENSIONS Left Atrium (2D)4.4 (1.6-4.0cm)IVSd1.4 (0.7-1.1cm) LVDd4.9 (3.9-5.9cm)PWd1.5 (0.7-1.1cm) LVDs4.0 (2.5-4.0cm)FS (%) 18.5 % LVEF (%)38.5 (>50%) M-Mode DIMENSIONS Aortic Root3.60 (2.2-3.7cm)Aortic Cusp Exc.1.40 (1.5-2.0cm) Aortic Valve AoV Peak Yygpsjkk311.0cm/Jessica Peak GR.17mmHg Mitral Valve MV E Yrfyjxfi80.5cm/sMV A Fbvbtkkg547.0cm/sE/A ratio0.6 TDI Lateral E' Peak V5.07cm/sMedial E' Peak V3.61cm/sE/Lateral E'16.7 E/Medial E'23.4 Pulmonary Valve PV Peak Ymmtpgbc67.5cm/sPV Peak Grad.2mmHg Tricuspid Valve TR Peak Lkxjllan894ws/sRAP [id number] Peak Gr.17mmHg [id number] LEFT VENTRICLE The left ventricle is normal size. There is mild concentric left ventricular hypertrophy. The systolic function is mildly to moderately impaired.EF-35-40% There is global hypokinesis of the left ventricle. There is mild to moderate hypokinesis in the apical anterior wall. Transmitral Doppler flow pattern is Grade III-reversible restrictive diastolic dysfunction. No left ventricle thrombus noted on this study. There is no ventricular septal defect visualized. There is no left ventricular aneurysm. There is no mass noted in the left ventricle. RIGHT VENTRICLE The right ventricle is normal size. There is normal right ventricular wall thickness. The right ventricular systolic function is normal. ATRIA The left atrium is mildly dilated. The right atrium size is normal. The interatrial septum is intact with no evidence for an atrial septal defect. AORTIC VALVE The aortic valve is calcified and displays decreased opening. There is trace aortic regurgitation. There is no aortic valvular stenosis. There is no aortic valvular vegetation. MITRAL VALVE The mitral valve is calcified but opens well. Mitral annular calcification is moderate. Mitral regurgitation is trace to mild. There is no mitral valve stenosis. There is no evidence of mitral valve prolapse. TRICUSPID VALVE The tricuspid valve leaflets are thickened , but open well. There is trace to mild tricuspid regurgitation.RVSP-27 mmof hg. There is no tricuspid valve stenosis. There is no tricuspid valve prolapse or vegetation. PULMONIC VALVE The pulmonic valve is borderline thickened. There is no pulmonic valvular regurgitation. GREAT VESSELS The aortic root is normal in size. The ascending aorta is normal in size. The pulmonary artery is normal. The IVC is normal in size and collapses >50% with inspiration. PERICARDIAL EFFUSION There is no pleural effusion. There is no pericardial effusion. <Conclusion> The left ventricle is normal size. There is mild concentric left ventricular hypertrophy. The systolic function is mildly to moderately impaired.EF-35-40% There is trace aortic regurgitation. Mitral regurgitation is trace to mild. There is trace to mild tricuspid regurgitation.RVSP-27 mmof hg.
[2017-03-20] MEDS: Labetalol 5 mg/ml Inj 20ML IV PRN
--- NOTE | 2017-03-20 06:54 | CP.PCM.PN ---
Subjective - Date & Time of Evaluation Date of Evaluation: 03/20/17 Time of Evaluation: 06:46 - Subjective Subjective: Ms Shields was seen and examined at the bedside in ICU. She is awake, alert, with confusion. She is unable to verbalize place, time, and person. She is able to answer few questions and follow simple commands such as turning her head side to side, raising her right arm. She has repeat CTH yesterday showed new small subcortical hemmorrhage in the right posterior frontal lobe. Small amount of subarachnoid blood in the right occipital lobe. Large infarct in the right basal ganglia and bey radiata.There was no untoward events overnight. Objective - Vital Signs/Intake and Output Vital Signs (last 24 hours): Temp Pulse Resp BP Pulse Ox 98.6 F 56 L 17 111/45 L 95 03/20/17 04:00 03/20/17 06:00 03/20/17 06:00 03/20/17 06:00 03/20/17 06:00 Intake and Output: 03/19/17 03/20/17 18:59 06:59 Intake Total 1120 Output Total 500 350 Balance 620 -350 - Medications Medications: Current Medications Aspirin (Ecotrin) 81 mg PO DAILY [facility] Last Admin: 03/19/17 09:20 Dose: 81 mg Atorvastatin Calcium (Lipitor) 40 mg PO DAILY [facility] Last Admin: 03/19/17 09:20 Dose: 40 mg Insulin Human Lispro (Humalog Low) 0 units SC ACHS [facility] PRN Reason: Protocol Last Admin: 03/19/17 22:01 Dose: Not Given Labetalol HCl (Trandate) 20 mg IV Q6H PRN PRN Reason: Systolic Blood Pressure Last Admin: 03/20/17 00:00 Dose: 20 mg Levothyroxine Sodium (Synthroid) 25 mcg PO ACB [facility] Last Admin: 03/19/17 07:51 Dose: 25 mcg Losartan Potassium (Cozaar) 100 mg PO DAILY [facility] Last Admin: 03/19/17 12:08 Dose: 100 mg Magnesium Oxide (Mag-Ox) 400 mg PO BID [facility] Last Admin: 03/19/17 17:25 Dose: 400 mg Nystatin (Nystatin Oral Susp) 5 ml PO QID [facility] Last Admin: 03/19/17 22:04 Dose: 5 ml Pantoprazole Sodium (Protonix Ec Tab) 40 mg PO ACB [facility] Last Admin: 03/19/17 07:50 Dose: 40 mg - Labs Labs: 03/19/17 05:30 03/19/17 05:30 PT 11.8 SECONDS (9.4-12.5) 03/16/17 16:25 INR 1.03 (0.93-1.08) 03/16/17 16:25 APTT 29.3 Seconds (25.1-36.5) 03/16/17 16:25 - Constitutional Appears: No Acute Distress - Head Exam Head Exam: NORMAL INSPECTION - Neurological Exam Neurological Exam: Awake Neuro motor strength exam: Left Upper Extremity: 0, Right Upper Extremity: 4, Left Lower Extremity: 0, Right Lower Extremity: 3 Additional comments: Neurological unchanged from previous examination. Assessment and Plan (1) Ischemic stroke Assessment & Plan: Case discussed with Dr. Gooden, continue all current medical, physical, occupational, and speech therapies. Recommend repeat CT of the head without contrast. May transfer to telemetry and neurochecks Q 4 hours. Status: Acute
--- NOTE | 2017-03-20 07:13 | CP.PCM.PN ---
<Grazyna Cotton - Last Filed: 03/20/17 11:37> Subjective - Date & Time of Evaluation Date of Evaluation: 03/20/17 Time of Evaluation: 07:12 - Subjective Subjective: ICU Progress Note for Jae Adan PGY2 Patient seen and examined at bedside. There were no acute overnight events. Patient feels well today. She denies chest pain, shortness of breath, nausea/ vomiting/diarrhea, numbness/tingling, fever/chills, dysuria, hematuria, vision changes, headache, numbness or tingling. Objective - Vital Signs/Intake and Output Vital Signs (last 24 hours): Temp Pulse Resp BP Pulse Ox 98.6 F 56 L 17 111/45 L 95 03/20/17 04:00 03/20/17 06:00 03/20/17 06:00 03/20/17 06:00 03/20/17 06:00 Intake and Output: 03/20/17 03/20/17 06:59 18:59 Output Total 350 Balance -350 - Medications Medications: Current Medications Aspirin (Ecotrin) 81 mg PO DAILY [facility] Last Admin: 03/19/17 09:20 Dose: 81 mg Atorvastatin Calcium (Lipitor) 40 mg PO DAILY [facility] Last Admin: 03/19/17 09:20 Dose: 40 mg Insulin Human Lispro (Humalog Low) 0 units SC ACHS [facility] PRN Reason: Protocol Last Admin: 03/19/17 22:01 Dose: Not Given Labetalol HCl (Trandate) 20 mg IV Q6H PRN PRN Reason: Systolic Blood Pressure Last Admin: 03/20/17 00:00 Dose: 20 mg Levothyroxine Sodium (Synthroid) 25 mcg PO ACB [facility] Last Admin: 03/19/17 07:51 Dose: 25 mcg Losartan Potassium (Cozaar) 100 mg PO DAILY [facility] Last Admin: 03/19/17 12:08 Dose: 100 mg Magnesium Oxide (Mag-Ox) 400 mg PO BID [facility] Last Admin: 03/19/17 17:25 Dose: 400 mg Nystatin (Nystatin Oral Susp) 5 ml PO QID [facility] Last Admin: 03/19/17 22:04 Dose: 5 ml Pantoprazole Sodium (Protonix Ec Tab) 40 mg PO ACB [facility] Last Admin: 03/19/17 07:50 Dose: 40 mg - Labs Labs: 03/19/17 05:30 03/19/17 05:30 PT 11.8 SECONDS (9.4-12.5) 03/16/17 16:25 INR 1.03 (0.93-1.08) 03/16/17 16:25 APTT 29.3 Seconds (25.1-36.5) 03/16/17 16:25 - Constitutional Appears: No Acute Distress - Head Exam Head Exam: ATRAUMATIC, NORMAL INSPECTION, NORMOCEPHALIC - Eye Exam Eye Exam: Normal appearance, PERRL Pupil Exam: NORMAL ACCOMODATION, PERRL Additional comments: R gaze preference - ENT Exam ENT Exam: Mucous Membranes Moist - Respiratory Exam Respiratory Exam: Clear to Ausculation Bilateral, NORMAL BREATHING PATTERN. absent: Rales, Rhonchi, Wheezes - Cardiovascular Exam Cardiovascular Exam: REGULAR RHYTHM, +S1, +S2. absent: Gallop, Rubs, Murmur - GI/Abdominal Exam GI & Abdominal Exam: Soft, Normal Bowel Sounds. absent: Rigid, Tenderness, Mass , Rebound - Extremities Exam Extremities Exam: Normal Inspection. absent: Calf Tenderness, Pedal Edema - Neurological Exam Neurological Exam: Alert, Awake, Oriented x3 Neuro motor strength exam: Left Upper Extremity: 0, Right Upper Extremity: 5, Left Lower Extremity: 2/1, Right Lower Extremity: 5 Additional comments: L sided facial droop, R gaze preference - Psychiatric Exam Psychiatric exam: Normal Affect, Normal Mood - Skin Skin Exam: Dry, Warm Assessment and Plan - Assessment and Plan (Free Text) Assessment: This is an 82yo Female with past medical history of DM2, HTN, HLD, hypothyroidism and GERD who was admitted for AMS. Patient was found weak on her L side with R gaze preference. Code stroke was called and was found to have R CVA. Brain MRI showed R basal ganglia CVA and bey radiata in distribution of R MCA. CTA showed 5mm of intraluminal filling defect in distal R M1 segment compatible with intraluminal thrombus. No carotid stenosis was noted. Repeat Head CT showed evolving R MCA infarct and small subarachnoid hemorrhage and R small frontal bleed. Plan: Neuro: R CVA of MCA with small subarachnoid hemorrhage and small R frontal bleed Continue ASA, Lipitor Neuro consulted-recs appreciated Neuro checks q4h Continue physical and speech therapy Repeat head CT today CV: Hx of HTN Maintain SBP 120-140s Continue Cozaar As per Cardio- restart pt on Metoprolol 25mg BID Cardio consulted- recs appreciated Echo showed EF 35-40% Resp: Aspiration precaution HOB elevated Maintain SpO2>90% GI: Continue puree diet Heme: Small Subarachnoid and small R frontal bleed Hgb stable Hold anticoagulants (Plavix and Heparin) Continue to monitor Nephro: Hypokalemia - K:3.5 Will continue to monitor electrolytes and replaced as needed ID: No evidence of infection at this time Afebrile, Leukocytosis (stable)--(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 Vida Cotton PGY2 <Manish Bach - Last Filed: 03/20/17 18:29> Objective - Vital Signs/Intake and Output Vital Signs (last 24 hours): Temp Pulse Resp BP Pulse Ox 98.6 F 77 24 177/90 H 96 03/20/17 04:00 03/20/17 17:08 03/20/17 15:59 03/20/17 17:08 03/20/17 15:59 Intake and Output: 03/20/17 03/20/17 06:59 18:59 Output Total 350 Balance -350 - Medications Medications: Current Medications Aspirin (Ecotrin) 81 mg PO DAILY [facility] Last Admin: 03/20/17 09:39 Dose: 81 mg Atorvastatin Calcium (Lipitor) 40 mg PO DAILY [facility] Last Admin: 03/20/17 09:37 Dose: 40 mg Clonidine HCl (Catapres-Tts2 0.2 Mg/24 Hr) 1 patch TD Q7D@1000 [facility] Last Admin: 03/20/17 13:48 Dose: 1 patch Hydralazine HCl (Apresoline) 10 mg IVP Q6 PRN PRN Reason: Systolic Blood Pressure Insulin Human Lispro (Humalog Low) 0 units SC ACHS [facility] PRN Reason: Protocol Last Admin: 03/20/17 11:50 Dose: 1 units Levothyroxine Sodium (Synthroid) 25 mcg PO ACB [facility] Last Admin: 03/20/17 08:09 Dose: 25 mcg Losartan Potassium (Cozaar) 100 mg PO DAILY [facility] Last Admin: 03/20/17 09:39 Dose: 100 mg Magnesium Oxide (Mag-Ox) 400 mg PO BID [facility] Last Admin: 03/20/17 17:09 Dose: 400 mg Metoprolol Tartrate (Lopressor) 25 mg PO BID [facility] Last Admin: 03/20/17 17:08 Dose: 25 mg Nystatin (Nystatin Oral Susp) 5 ml PO QID [facility] Last Admin: 03/20/17 17:09 Dose: 5 ml Pantoprazole Sodium (Protonix Ec Tab) 40 mg PO ACB [facility] Last Admin: 03/20/17 08:09 Dose: 40 mg - Labs Labs: 03/20/17 06:00 03/20/17 06:00 PT 11.8 SECONDS (9.4-12.5) 03/16/17 16:25 INR 1.03 (0.93-1.08) 03/16/17 16:25 APTT 29.3 Seconds (25.1-36.5) 03/16/17 16:25 Attending/Attestation - Attestation I have personally seen and examined this patient.: Yes I have fully participated in the care of the patient.: Yes I have reviewed all pertinent clinical information, including history, physical exam and plan: Yes Notes (Text): 03/20/17 18:26 82 yo female with acute ischemic stroke, complicated by hemorrhagic conversion, without translation into substantial neurodeficit. Maintain euvolemia, euglycemia, normothermia and 02sat>90%. Neuro checks q4 (down from q2). ok to downgrade from icu ccm time 40 min
[2017-03-20 07:49] LABS: BASO # 0.02 [, K/mm3] (0.0-2.0); BASO % 0.2 % (0.0-3.0); EOS # 0.1 (0.0-0.7); EOS % 0.4 % (1.5-5.0); GRAN # 9.61 (1.4-6.5); HEMOGLOBIN 10.7 g/dL (12.0-16.0); LYMPH # 1.2 (1.2-3.4); LYMPH % 10.2 % (22.0-35.0); MEAN CELL VOLUME 97.1 fl (80.0-105.0); MEAN CORPUSCULAR HEMOGLOBIN 30.6 pg (25.0-35.0); MEAN CORPUSCULAR HGB CONC 31.5 g/dl (31.0-37.0); MEAN PLATELET VOLUME 10.4 fl (7.0-11.0); MONO # 0.8 (0.1-0.6); MONO % 7.2 % (1.0-6.0); RBC 3.5 [, 10^6/uL] (3.5-6.1); RED CELL DISTRIBUTION WIDTH 13.8 % (11.5-14.5); WHITE BLOOD COUNT 11.7 [, 10^3/ul] (4.5-11.0)
[2017-03-20 07:56] LABS: ALBUMIN 3.1 g/dL (3.0-4.8); ALT/SGPT 25 U/L (7-56); AST/SGOT 21 U/L (14-36); BLOOD UREA NITROGEN 10 mg/dL (7-21); CALCIUM 8.8 mg/dL (8.4-10.5); GFR AFRICAN-AMERICAN > 60; GFR NON-AFRICAN AMERICAN > 60
[2017-03-20] MEDS: Pantoprazole 40 mg EC Tab PO SCH (08:09)
[2017-03-20] MEDS: Levothyroxine 25 MCG TAB PO SCH (08:09)
[2017-03-20] MEDS ORDERED: Potassium Chloride 40 mEq/30 ml LIQ UD PO ONE (08:09)
[2017-03-20] MEDS: Insulin Lispro (humaLOG) LOW Coverage SC SCH ×3 (09:30→22:12)
[2017-03-20] MEDS: Magnesium Oxide 400 mg Tab UD PO SCH ×2 (09:37→17:09)
[2017-03-20] MEDS: Nystatin 100,000 Units/ml Oral Susp 5 ml UD PO SCH ×4 (09:37→22:12)
--- NOTE | 2017-03-20 10:28 | CP.PCM.PN ---
<Sal Simonmitchell - Last Filed: 03/20/17 11:57> Subjective - Date & Time of Evaluation Date of Evaluation: 03/20/17 Time of Evaluation: 07:30 - Subjective Subjective: Felicity Simon DO PGY1 - Internal Medicine Progress Note Patient seen and examined at bedside. Patient has no particular complaints. She denies any headache, chest pain, SOB. She is awake, alert, oriented to person, place, and time. She still reports that she is not aware of and does not comprehend the fact that she had a stroke. Objective - Vital Signs/Intake and Output Vital Signs (last 24 hours): Temp Pulse Resp BP Pulse Ox 98.6 F 68 17 170/61 H 95 03/20/17 04:00 03/20/17 09:21 03/20/17 06:00 03/20/17 09:21 03/20/17 06:00 Intake and Output: 03/20/17 03/20/17 06:59 18:59 Output Total 350 Balance -350 - Medications Medications: Current Medications Aspirin (Ecotrin) 81 mg PO DAILY [facility] Last Admin: 03/20/17 09:39 Dose: 81 mg Atorvastatin Calcium (Lipitor) 40 mg PO DAILY [facility] Last Admin: 03/20/17 09:37 Dose: 40 mg Hydralazine HCl (Apresoline) 10 mg IVP Q6 PRN PRN Reason: Systolic Blood Pressure Insulin Human Lispro (Humalog Low) 0 units SC [facility] PRN Reason: Protocol Last Admin: 03/20/17 09:30 Dose: Not Given Levothyroxine Sodium (Synthroid) 25 mcg PO ACB [facility] Last Admin: 03/20/17 08:09 Dose: 25 mcg Losartan Potassium (Cozaar) 100 mg PO DAILY [facility] Last Admin: 03/20/17 09:39 Dose: 100 mg Magnesium Oxide (Mag-Ox) 400 mg PO BID [facility] Last Admin: 03/20/17 09:37 Dose: 400 mg Metoprolol Tartrate (Lopressor) 25 mg PO BID [facility] Last Admin: 03/20/17 09:21 Dose: 25 mg Nystatin (Nystatin Oral Susp) 5 ml PO QID [facility] Last Admin: 03/20/17 09:37 Dose: 5 ml Pantoprazole Sodium (Protonix Ec Tab) 40 mg PO ACB [facility] Last Admin: 03/20/17 08:09 Dose: 40 mg - Labs Labs: 03/20/17 06:00 03/20/17 06:00 PT 11.8 SECONDS (9.4-12.5) 03/16/17 16:25 INR 1.03 (0.93-1.08) 03/16/17 16:25 APTT 29.3 Seconds (25.1-36.5) 03/16/17 16:25 - Constitutional Appears: Non-toxic, No Acute Distress - Head Exam Head Exam: ATRAUMATIC, NORMOCEPHALIC - Eye Exam Eye Exam: EOMI, Normal appearance, PERRL Additional comments: Left hemineglect - ENT Exam ENT Exam: Mucous Membranes Moist - Respiratory Exam Respiratory Exam: Clear to Ausculation Bilateral, NORMAL BREATHING PATTERN - Cardiovascular Exam Cardiovascular Exam: RRR, +S1, +S2 - GI/Abdominal Exam GI & Abdominal Exam: Soft, Normal Bowel Sounds. absent: Tenderness - Extremities Exam Extremities Exam: absent: Calf Tenderness, Pedal Edema - Neurological Exam Neurological Exam: Alert, Awake Neuro motor strength exam: Left Upper Extremity: 0, Right Upper Extremity: 5, Left Lower Extremity: 0, Right Lower Extremity: 5 Additional comments: Left hemineglect Profound left upper extremity weakness, flacid paralysis Some spontaneous movements in LLE, but no intentional movements Forehead-sparing left facial droop - Psychiatric Exam Psychiatric exam: Flat Affect - Skin Skin Exam: Dry, Intact, Normal Color Assessment and Plan - Assessment and Plan (Free Text) Assessment: 82yo female with history of DM type 2, hypertension, hyperlipidemia, hypothyroidism and GERD presents with altered mental status secondary to dementia vs CVA vs delirium due to UTI; code stroke called when patient was noted to have profound left sided weakness, not previously noted; now with SAH 1. Altered mental status -Secondary to evolving CVA -CT head showed interval infarct in right basal ganglia; Now with subarachnoid hemorrhage; repeat head CT ordered per neuro -Continue ASA, per neuro -BP goal, SBP 120-140 per discussion with ICU and neuro teams -Neurochecks Q4 -Continue PT, OT, and speech/swallow therapy -Neurology on consult; appreciate recs 2. Hypertension -BP goal as above, considering SAH -PRN labetalol for SBP >140 3. Hyperlipidemia -Continue home statin 4. Hypothyroidism -Continue home synthroid 5. DM type 2 -Carb consistent diet -Fingersticks ACHS -Humalog ISS low dose 6. GI/DVT prophylaxis -Protonix/SCD - no anticoagulants considering hemorrhagic conversion Patient seen and case discussed/reviewed with attending, Dr. García <Hector García - Last Filed: 03/20/17 14:10> Objective - Vital Signs/Intake and Output Vital Signs (last 24 hours): Temp Pulse Resp BP Pulse Ox 98.6 F 76 17 166/70 H 95 03/20/17 04:00 03/20/17 13:48 03/20/17 06:00 03/20/17 13:48 03/20/17 06:00 Intake and Output: 03/20/17 03/20/17 06:59 18:59 Output Total 350 Balance -350 - Medications Medications: Current Medications Aspirin (Ecotrin) 81 mg PO DAILY [facility] Last Admin: 03/20/17 09:39 Dose: 81 mg Atorvastatin Calcium (Lipitor) 40 mg PO DAILY [facility] Last Admin: 03/20/17 09:37 Dose: 40 mg Clonidine HCl (Catapres-Tts2 0.2 Mg/24 Hr) 1 patch TD Q7D@1000 [facility] Last Admin: 03/20/17 13:48 Dose: 1 patch Hydralazine HCl (Apresoline) 10 mg IVP Q6 PRN PRN Reason: Systolic Blood Pressure Insulin Human Lispro (Humalog Low) 0 units SC [facility] PRN Reason: Protocol Last Admin: 03/20/17 11:50 Dose: 1 units Levothyroxine Sodium (Synthroid) 25 mcg PO ACB [facility] Last Admin: 03/20/17 08:09 Dose: 25 mcg Losartan Potassium (Cozaar) 100 mg PO DAILY [facility] Last Admin: 03/20/17 09:39 Dose: 100 mg Magnesium Oxide (Mag-Ox) 400 mg PO BID [facility] Last Admin: 03/20/17 09:37 Dose: 400 mg Metoprolol Tartrate (Lopressor) 25 mg PO BID [facility] Last Admin: 03/20/17 09:21 Dose: 25 mg Nystatin (Nystatin Oral Susp) 5 ml PO QID [facility] Last Admin: 03/20/17 13:07 Dose: 5 ml Pantoprazole Sodium (Protonix Ec Tab) 40 mg PO ACB [facility] Last Admin: 03/20/17 08:09 Dose: 40 mg - Labs Labs: 03/20/17 06:00 03/20/17 06:00 PT 11.8 SECONDS (9.4-12.5) 03/16/17 16:25 INR 1.03 (0.93-1.08) 03/16/17 16:25 APTT 29.3 Seconds (25.1-36.5) 03/16/17 16:25 Attending/Attestation - Attestation I have personally seen and examined this patient.: Yes I have fully participated in the care of the patient.: Yes I have reviewed all pertinent clinical information, including history, physical exam and plan: Yes Notes (Text): 03/20/17 14:07 Patient seen and examined with resident in ICU. 82-year-old female with past medical history of diabetes type 2, hypertension , hyperlipidemia, hypothyroidism and gastroesophageal reflux disease presents with altered mental status , noted to have profound left sided weakness, not previously noted. CT head Showed new infarct. CT angios showed acute thrombus. Repeat head CT y morning showed stable infarct; repeat head CT 2 days back showed development of hemmorhage into posterior frontal lobe and SAH. Currently patient has acute cerebral infarct with left hemiplegia and right gaze. Currently only on aspirin as per Neurology. Hypertension; continue YENNIFER inhibitor Patient is on Puree diet.
--- NOTE | 2017-03-20 13:25 | CP.PCM.CON ---
<Aleisha Louis - Last Filed: 03/20/17 13:27> History of Present Illness - History of Present Illness History of Present Illness: 82yo female with past medical history of DM II, HTN, HLD, hypothyroidism and GERD s/p CVA seen at bedside for painful elongated toenails. Pt unable to give true HPI due to altered mental status but per family the nails are painful, long and very thick. Denies any other pedal complaints. Denies a history of foot ulcerations or infections. Denies F/C/N/V at this time. Review of Systems - Review of Systems All systems: reviewed and no additional remarkable complaints except (per HPI) Past Patient History - Past Social History Smoking Status: Former Smoker - CARDIAC Hx Hypercholesterolemia: Yes Hx Hypertension: Yes - PULMONARY Hx Respiratory Disorders: Yes Other/Comment: loose cough - NEUROLOGICAL Other/Comment: left facial droop, left side flaccid, tongue drooping to left side, new as of 2 1/2 days ago - HEENT Hx HEENT Problems: (unsure) - RENAL Hx Chronic Kidney Disease: (renal disease) - ENDOCRINE/METABOLIC Hx Diabetes Mellitus Type 2: Yes Hx Hypothyroidism: Yes - HEMATOLOGICAL/ONCOLOGICAL Other/Comment: pt has appt with dr fonseca on 03/18/17 dx cll referral by dr crouch - INTEGUMENTARY Other/Comment: long thick fingernails and toenails and dry scaley skin to feet, dry skin to legs, r cw area of dry brown skin 1cm round - MUSCULOSKELETAL/RHEUMATOLOGICAL Hx Falls: Yes (past) - GASTROINTESTINAL Hx Gastrointestinal Disorders: Yes (gi bleed) Hx Gastroesophageal Reflux: Yes - GENITOURINARY/GYNECOLOGICAL Hx Urinary Tract Infection: Yes (tx by dr crouch few wks ago) Other/Comment: mammo 04/2013 - PSYCHIATRIC Hx Substance Use: No - SURGICAL HISTORY Hx Surgeries: No (none as per son kenton) Meds Allergies/Adverse Reactions: Allergies Allergy/AdvReac Type Severity Reaction Status Date / Time Penicillins Allergy RASH Verified 03/16/17 15:33 Sulfa (Sulfonamide Allergy RASH Verified 03/16/17 15:33 Antibiotics) - Medications Medications: Current Medications Aspirin (Ecotrin) 81 mg PO DAILY [facility] Last Admin: 03/20/17 09:39 Dose: 81 mg Atorvastatin Calcium (Lipitor) 40 mg PO DAILY [facility] Last Admin: 03/20/17 09:37 Dose: 40 mg Clonidine HCl (Catapres-Tts2 0.2 Mg/24 Hr) 1 patch TD Q7D@1000 [facility] Hydralazine HCl (Apresoline) 10 mg IVP Q6 PRN PRN Reason: Systolic Blood Pressure Insulin Human Lispro (Humalog Low) 0 units SC [facility] PRN Reason: Protocol Last Admin: 03/20/17 11:50 Dose: 1 units Levothyroxine Sodium (Synthroid) 25 mcg PO ACB [facility] Last Admin: 03/20/17 08:09 Dose: 25 mcg Losartan Potassium (Cozaar) 100 mg PO DAILY [facility] Last Admin: 03/20/17 09:39 Dose: 100 mg Magnesium Oxide (Mag-Ox) 400 mg PO BID [facility] Last Admin: 03/20/17 09:37 Dose: 400 mg Metoprolol Tartrate (Lopressor) 25 mg PO BID [facility] Last Admin: 03/20/17 09:21 Dose: 25 mg Nystatin (Nystatin Oral Susp) 5 ml PO QID [facility] Last Admin: 03/20/17 13:07 Dose: 5 ml Pantoprazole Sodium (Protonix Ec Tab) 40 mg PO ACB [facility] Last Admin: 03/20/17 08:09 Dose: 40 mg Physical Exam - Constitutional Appears: Well, Non-toxic, No Acute Distress - Extremities Exam Additional comments: Lower extremity exam: Vasc: DP/PT pulses palpable 2/4. Temp gradient warm to cool. CFT < 3 sec to all digits. No pedal edema is noted. Derm: Thickened dystrophic elongated toenails x 10. No open lesions, no erythema , no ecchymosis. Neuro: Protective sensation grossly intact Ortho: No gross biomechanical deformities noted - Neurological Exam Neurological exam: Alert Results - Vital Signs Recent Vital Signs: Last Vital Signs Temp 98.6 F 03/20/17 04:00 Pulse 68 03/20/17 09:21 Resp 17 03/20/17 06:00 BP 170/61 H 03/20/17 09:21 Pulse Ox 95 03/20/17 06:00 - Labs Result Diagrams: 03/20/17 06:00 03/20/17 06:00 Labs: Laboratory Results - last 24 hr 03/19/17 03/19/17 03/20/17 17:08 21:51 06:00 WBC 11.7 H RBC 3.50 Hgb 10.7 L Hct 34.0 L MCV 97.1 MCH 30.6 MCHC 31.5 RDW 13.8 Plt Count 299 MPV 10.4 Gran % 82.0 H Lymph % (Auto) 10.2 L [place] % (Auto) 7.2 H Eos % (Auto) 0.4 L Baso % (Auto) 0.2 Gran # 9.61 H Lymph # 1.2 [place] # 0.8 H Eos # 0.1 Baso # 0.02 Sodium Potassium Chloride Carbon Dioxide Anion Gap BUN Creatinine Est GFR ( Amer) Est GFR (Non-Af Amer) POC Glucose (mg/dL) 145 H 133 H Random Glucose Calcium Total Bilirubin AST ALT Alkaline Phosphatase Total Protein Albumin Globulin Albumin/Globulin Ratio 03/20/17 03/20/17 06:00 07:48 WBC RBC Hgb Hct MCV MCH MCHC RDW Plt Count MPV Gran % Lymph % (Auto) [place] % (Auto) Eos % (Auto) Baso % (Auto) Gran # Lymph # [place] # Eos # Baso # Sodium 138 Potassium 3.5 L Chloride 104 Carbon Dioxide 27 Anion Gap 11 BUN 10 Creatinine 0.7 Est GFR ( Amer) > 60 Est GFR (Non-Af Amer) > 60 POC Glucose (mg/dL) 140 H Random Glucose 147 H Calcium 8.8 Total Bilirubin 0.8 AST 21 ALT 25 Alkaline Phosphatase 55 Total Protein 6.3 Albumin 3.1 Globulin 3.1 Albumin/Globulin Ratio 1.0 L Assessment & Plan - Assessment and Plan (Free Text) Assessment: 82 y/o female with PMHx of arthritis with painful dystropic elongated toenails x 10 Plan: Pt seen and evaluated at bedside Discussed with attending Dr. Galindo Aseptic debridement of toenails x10 with sterile nippers Pt tolerated procedure without incident Podiatry to sign off at this time Please re consult again as needed Thank you for allowing us to participate in patient care <Magi Galindo - Last Filed: 03/21/17 18:08> Meds - Medications Medications: Current Medications Aspirin (Ecotrin) 81 mg PO DAILY [facility] Last Admin: 03/21/17 09:43 Dose: 81 mg Atorvastatin Calcium (Lipitor) 40 mg PO DAILY [facility] Last Admin: 03/21/17 09:42 Dose: 40 mg Clonidine HCl (Catapres-Tts2 0.2 Mg/24 Hr) 1 patch TD Q7D@1000 [facility] Last Admin: 03/20/17 13:48 Dose: 1 patch Hydralazine HCl (Apresoline) 10 mg IVP Q6 PRN PRN Reason: Systolic Blood Pressure Insulin Human Lispro (Humalog Low) 0 units SC [facility] PRN Reason: Protocol Last Admin: 03/21/17 12:14 Dose: Not Given Levothyroxine Sodium (Synthroid) 25 mcg PO ACB [facility] Last Admin: 03/21/17 08:00 Dose: 25 mcg Losartan Potassium (Cozaar) 100 mg PO DAILY [facility] Last Admin: 03/21/17 09:43 Dose: 100 mg Magnesium Oxide (Mag-Ox) 400 mg PO BID [facility] Last Admin: 03/21/17 17:59 Dose: 400 mg Metoprolol Tartrate (Lopressor) 25 mg PO BID [facility] Last Admin: 03/21/17 17:59 Dose: 25 mg Multivitamins (Thera Tab) 1 tab PO DAILY [facility] Last Admin: 03/21/17 12:45 Dose: 1 tab Nystatin (Nystatin Oral Susp) 5 ml PO QID [facility] Last Admin: 03/21/17 17:59 Dose: 5 ml Pantoprazole Sodium (Protonix Ec Tab) 40 mg PO ACB [facility] Last Admin: 03/21/17 08:00 Dose: 40 mg Zinc Sulfate (Zinc Sulfate 220 Mg Cap) 220 mg PO DAILY [facility] Last Admin: 03/21/17 12:45 Dose: 220 mg Results - Vital Signs Recent Vital Signs: Last Vital Signs Temp 98.5 F 03/21/17 06:00 Pulse 84 03/21/17 14:00 Resp 20 03/21/17 06:00 BP 140/53 L 03/21/17 06:00 Pulse Ox 95 03/21/17 06:00 - Labs Result Diagrams: 03/21/17 07:20 03/21/17 07:20 Labs: Laboratory Results - last 24 hr 03/20/17 03/21/17 03/21/17 22:04 07:20 07:20 WBC 14.7 H D RBC 3.60 Hgb 10.9 L Hct 35.3 L MCV 98.1 MCH 30.3 MCHC 30.9 L RDW 13.5 Plt Count 328 MPV 10.4 Gran % 84.5 H Lymph % (Auto) 8.3 L [place] % (Auto) 6.3 H Eos % (Auto) 0.8 L Baso % (Auto) 0.1 Gran # 12.38 H Lymph # 1.2 [place] # 0.9 H Eos # 0.1 Baso # 0.02 Sodium 142 Potassium 3.6 Chloride 105 Carbon Dioxide 30 Anion Gap 10 BUN 14 Creatinine 0.8 Est GFR ( Amer) > 60 Est GFR (Non-Af Amer) > 60 POC Glucose (mg/dL) 136 H Random Glucose 148 H Calcium 9.2 Total Bilirubin 0.7 AST 31 ALT 20 Alkaline Phosphatase 56 Total Protein 6.6 Albumin 3.1 Globulin 3.4 Albumin/Globulin Ratio 0.9 L Urine Color Urine Appearance Urine pH Ur Specific [place] Urine Protein Urine Glucose (UA) Urine Ketones Urine Blood Urine Nitrate Urine Bilirubin Urine Urobilinogen Ur Leukocyte Esterase Urine RBC Urine WBC Ur Epithelial Cells Urine Bacteria 03/21/17 03/21/17 03/21/17 07:20 11:45 12:50 WBC RBC Hgb Hct MCV MCH MCHC RDW Plt Count MPV Gran % Lymph % (Auto) [place] % (Auto) Eos % (Auto) Baso % (Auto) Gran # Lymph # [place] # Eos # Baso # Sodium Potassium Chloride Carbon Dioxide Anion Gap BUN Creatinine Est GFR ( Amer) Est GFR (Non-Af Amer) POC Glucose (mg/dL) 141 H 153 H Random Glucose Calcium Total Bilirubin AST ALT Alkaline Phosphatase Total Protein Albumin Globulin Albumin/Globulin Ratio Urine Color Yellow Urine Appearance Clear Urine pH 6.0 Ur Specific [place] 1.025 Urine Protein 30 H Urine Glucose (UA) 100 H Urine Ketones Negative Urine Blood Negative Urine Nitrate Negative Urine Bilirubin Negative Urine Urobilinogen 0.2 Ur Leukocyte Esterase Trace H Urine RBC Negative Urine WBC 0 - 2 Ur Epithelial Cells 6 - 8 Urine Bacteria Many Attending/Attestation - Attestation I have personally seen and examined this patient.: Yes I have fully participated in the care of the patient.: Yes I have reviewed all pertinent clinical information: Yes
--- NOTE | 2017-03-20 15:32 | PN ---
DATE: 03/20/2017 REASON FOR CONSULTATION AND FOLLOWUP: Cardiac evaluation, CVA, left-sided weakness. SUBJECTIVE: The patient denies any chest pain, shortness of breath, any palpitations. OBJECTIVE: GENERAL: Not in any apparent distress. Lying flat, but still right preference gaze, unable to move her left upper and lower extremity. VITAL SIGNS: Temperature afebrile, heart rate 68, blood pressure 170/61. HEENT: PERRLA. Extraocular muscles intact. .NECK: Supple. No carotid bruits or thyromegaly. CHEST: Clear to auscultation. HEART: S1 and S2, regular. ABDOMEN: Soft. EXTREMITIES: Clubbing and cyanosis are negative. LABORATORY DATA: Blood workup as follows: WBC 11.7, hemoglobin 10.3, hematocrit 34, and platelet count 299. Chemistry shows sodium 130, potassium 3.5, chloride 104, carbon dioxide 27, anion gap of 11, BUN 10, and creatinine 0.4. IMPRESSION: Acute cerebrovascular accident with left-sided upper and lower extremity weakness. Repeat CAT scan shows new subcortical hemorrhage can be seen in the right posterior frontal lobe with small amount subarachnoid blood can be seen within the occipital lobes on MRI. This is an 82-year-old female with past medical history of diabetes, hypertension, and hyperlipidemia, admitted with altered mental status and urinary tract infection. Found to be right preference gaze with left-sided weakness. Code stroke was called in. The patient was stated on Integrilin. Repeat CAT scan shows hemorrhagic stroke. Initial stroke was in the middle cerebral artery territory infract. Now, CAT scan shows subcortical hemorrhage. PLAN: Aggressive control of blood pressure, goal is to keep between 120 to 140. Continue losartan. Continue metoprolol 25 mg b.i.d. We will start Catapres patch and continue hydralazine p.r.n. for aggressive control of blood pressure. Now, the blood pressure went up to 170/61. We will follow with you. Continue rehab. Aspirin as per Neurology. We will follow with you closely. Echo yesterday showed ejection fraction of 35% to 40% with trace aortic regurgitation, trace to mild mitral regurgitation, trace to mild tricuspid regurgitation, right ventricular systolic pressure of 27. The goal is to aggressively control the blood pressure and hold for systolic less than 100. We will follow with you. Hector Lopez MD [facility] # [id number]
--- NOTE | 2017-03-21 06:39 | CP.PCM.PN ---
Subjective - Date & Time of Evaluation Date of Evaluation: 03/21/17 Time of Evaluation: 06:36 - Subjective Subjective: Ms. Shields was seen and examined at the bedside. She is alert, oriented to person ([place]), but not to place (hotel), and time ([id number]). She is able to answer some questions appropriately and follows simple commands. She denies any blurred vision, diplopia, headache, nausea, or vomiting. She remains with left facial palsy, left side paralysis, but able to move the right side. There was no untoward events overnight. Objective - Vital Signs/Intake and Output Vital Signs (last 24 hours): Temp Pulse Resp BP Pulse Ox 98.5 F 61 20 140/53 L 95 03/21/17 06:00 03/21/17 06:00 03/21/17 06:00 03/21/17 06:00 03/21/17 06:00 Intake and Output: 03/20/17 03/21/17 18:59 06:59 Intake Total 200 140 Output Total 360 300 Balance -160 -160 - Medications Medications: Current Medications Aspirin (Ecotrin) 81 mg PO DAILY [facility] Last Admin: 03/20/17 09:39 Dose: 81 mg Atorvastatin Calcium (Lipitor) 40 mg PO DAILY [facility] Last Admin: 03/20/17 09:37 Dose: 40 mg Clonidine HCl (Catapres-Tts2 0.2 Mg/24 Hr) 1 patch TD Q7D@1000 [facility] Last Admin: 03/20/17 13:48 Dose: 1 patch Hydralazine HCl (Apresoline) 10 mg IVP Q6 PRN PRN Reason: Systolic Blood Pressure Insulin Human Lispro (Humalog Low) 0 units SC ACHS [facility] PRN Reason: Protocol Last Admin: 03/20/17 22:12 Dose: Not Given Levothyroxine Sodium (Synthroid) 25 mcg PO ACB [facility] Last Admin: 03/20/17 08:09 Dose: 25 mcg Losartan Potassium (Cozaar) 100 mg PO DAILY [facility] Last Admin: 03/20/17 09:39 Dose: 100 mg Magnesium Oxide (Mag-Ox) 400 mg PO BID [facility] Last Admin: 03/20/17 17:09 Dose: 400 mg Metoprolol Tartrate (Lopressor) 25 mg PO BID [facility] Last Admin: 03/20/17 17:08 Dose: 25 mg Nystatin (Nystatin Oral Susp) 5 ml PO QID [facility] Last Admin: 03/20/17 22:12 Dose: 5 ml Pantoprazole Sodium (Protonix Ec Tab) 40 mg PO ACB [facility] Last Admin: 03/20/17 08:09 Dose: 40 mg - Labs Labs: 03/20/17 06:00 03/20/17 06:00 PT 11.8 SECONDS (9.4-12.5) 03/16/17 16:25 INR 1.03 (0.93-1.08) 03/16/17 16:25 APTT 29.3 Seconds (25.1-36.5) 03/16/17 16:25 - Constitutional Appears: No Acute Distress - Head Exam Head Exam: NORMAL INSPECTION - Neurological Exam Neurological Exam: Alert, Awake Neuro motor strength exam: Left Upper Extremity: 0, Right Upper Extremity: 4, Left Lower Extremity: 0, Right Lower Extremity: 3 Additional comments: Neurological unchanged from previous examination. Assessment and Plan (1) Ischemic stroke Assessment & Plan: Case discussed with Dr. Gooden, continue all current medical, physical, occupational, and speech therapies. Maintain normotensive.There is no new recommendation from neurology. Status: Acute
[2017-03-21 07:36] LABS: BASO # 0.02 [, K/mm3] (0.0-2.0); BASO % 0.1 % (0.0-3.0); EOS # 0.1 (0.0-0.7); EOS % 0.8 % (1.5-5.0); GRAN # 12.38 (1.4-6.5); GRAN % 84.5 % (50.0-68.0); HEMOGLOBIN 10.9 g/dL (12.0-16.0); LYMPH # 1.2 (1.2-3.4); LYMPH % 8.3 % (22.0-35.0); MEAN CELL VOLUME 98.1 fl (80.0-105.0); MEAN CORPUSCULAR HEMOGLOBIN 30.3 pg (25.0-35.0); MEAN CORPUSCULAR HGB CONC 30.9 g/dl (31.0-37.0); MEAN PLATELET VOLUME 10.4 fl (7.0-11.0); MONO # 0.9 (0.1-0.6); MONO % 6.3 % (1.0-6.0); RBC 3.6 [, 10^6/uL] (3.5-6.1); RED CELL DISTRIBUTION WIDTH 13.5 % (11.5-14.5); WHITE BLOOD COUNT 14.7 [, 10^3/ul] (4.5-11.0)
[2017-03-21 07:49] LABS: ALB/GLOB RATIO 0.9 (1.1-1.8); ALBUMIN 3.1 g/dL (3.0-4.8); ALT/SGPT 20 U/L (7-56); AST/SGOT 31 U/L (14-36); BLOOD UREA NITROGEN 14 mg/dL (7-21); CALCIUM 9.2 mg/dL (8.4-10.5); GFR AFRICAN-AMERICAN > 60; GFR NON-AFRICAN AMERICAN > 60
[2017-03-21] MEDS: Pantoprazole 40 mg EC Tab PO SCH (08:00)
[2017-03-21] MEDS: Levothyroxine 25 MCG TAB PO SCH (08:00)
[2017-03-21] MEDS ORDERED: Potassium Chloride 20 mEq ER Tab PO ONE (08:48)
--- NOTE | 2017-03-21 09:15 | CT ---
PROCEDURE: CT HEAD WITHOUT CONTRAST. HISTORY: ischemic stroke COMPARISON: 03/19/2017 TECHNIQUE: Axial computed tomography images were obtained through the head/brain without intravenous contrast. Radiation dose: Total exam DLP = 761 mGy-cm. This CT exam was performed using one or more of the following dose reduction techniques: Automated exposure control, adjustment of the mA and/or kV according to patient size, and/or use of iterative reconstruction technique. FINDINGS: HEMORRHAGE: The small hemorrhages noted previously in the right frontal and occipital lobes are stable in appearance. The minimal subarachnoid hemorrhage is also stable. BRAIN: No mass effect or edema. The large infarct is now all more well-defined in hypodense primarily involving the basal ganglia and right bey radiata. VENTRICLES: Unremarkable. No hydrocephalus. CALVARIUM: Unremarkable. PARANASAL SINUSES: Unremarkable as visualized. No significant inflammatory changes. MASTOID AIR CELLS: Unremarkable as visualized. No inflammatory changes. OTHER FINDINGS: None. IMPRESSION: Stable appearance of small hemorrhages. Evolution of right-sided infarct which is more well defined and hypodense.
--- NOTE | 2017-03-21 09:17 | CP.PCM.PN ---
<AuroraSalmitchell - Last Filed: 03/21/17 11:23> Subjective - Date & Time of Evaluation Date of Evaluation: 03/21/17 Time of Evaluation: 07:30 - Subjective Subjective: Felicity Simon DO PGY1 - Internal Medicine Progress Note Patient seen and examined at bedside. Patient has no particular complaints. She denies any headache, chest pain, SOB. She is awake, alert, oriented to person, place, and time. Continues to have left hemineglect and flaccid paresis. Objective - Vital Signs/Intake and Output Vital Signs (last 24 hours): Temp Pulse Resp BP Pulse Ox 98.5 F 68 20 140/53 L 95 03/21/17 06:00 03/21/17 08:31 03/21/17 06:00 03/21/17 06:00 03/21/17 06:00 Intake and Output: 03/21/17 03/21/17 06:59 18:59 Intake Total 140 Output Total 300 Balance -160 - Medications Medications: Current Medications Aspirin (Ecotrin) 81 mg PO DAILY [facility] Last Admin: 03/20/17 09:39 Dose: 81 mg Atorvastatin Calcium (Lipitor) 40 mg PO DAILY [facility] Last Admin: 03/20/17 09:37 Dose: 40 mg Clonidine HCl (Catapres-Tts2 0.2 Mg/24 Hr) 1 patch TD Q7D@1000 [facility] Last Admin: 03/20/17 13:48 Dose: 1 patch Hydralazine HCl (Apresoline) 10 mg IVP Q6 PRN PRN Reason: Systolic Blood Pressure Insulin Human Lispro (Humalog Low) 0 units SC ACHS [facility] PRN Reason: Protocol Last Admin: 03/20/17 22:12 Dose: Not Given Levothyroxine Sodium (Synthroid) 25 mcg PO ACB [facility] Last Admin: 03/20/17 08:09 Dose: 25 mcg Losartan Potassium (Cozaar) 100 mg PO DAILY [facility] Last Admin: 03/20/17 09:39 Dose: 100 mg Magnesium Oxide (Mag-Ox) 400 mg PO BID [facility] Last Admin: 03/20/17 17:09 Dose: 400 mg Metoprolol Tartrate (Lopressor) 25 mg PO BID [facility] Last Admin: 03/20/17 17:08 Dose: 25 mg Nystatin (Nystatin Oral Susp) 5 ml PO QID [facility] Last Admin: 03/20/17 22:12 Dose: 5 ml Pantoprazole Sodium (Protonix Ec Tab) 40 mg PO ACB [facility] Last Admin: 03/20/17 08:09 Dose: 40 mg - Labs Labs: 03/21/17 07:20 03/21/17 07:20 PT 11.8 SECONDS (9.4-12.5) 03/16/17 16:25 INR 1.03 (0.93-1.08) 03/16/17 16:25 APTT 29.3 Seconds (25.1-36.5) 03/16/17 16:25 - Constitutional Appears: Non-toxic, No Acute Distress - Head Exam Head Exam: ATRAUMATIC, NORMOCEPHALIC - Eye Exam Eye Exam: EOMI, Normal appearance, PERRL Additional comments: Left hemineglect. Able to track fingers to the left, but cannot recognize objects placed in her left field of view - ENT Exam ENT Exam: Mucous Membranes Moist - Neck Exam Neck Exam: Normal Inspection - Respiratory Exam Respiratory Exam: Clear to Ausculation Bilateral, NORMAL BREATHING PATTERN - Cardiovascular Exam Cardiovascular Exam: RRR, +S1, +S2 - GI/Abdominal Exam GI & Abdominal Exam: Soft, Normal Bowel Sounds. absent: Tenderness - Extremities Exam Extremities Exam: absent: Calf Tenderness, Pedal Edema - Back Exam Additional comments: Blanchable erythema over sacrum, without skin breakdown - Neurological Exam Neurological Exam: Alert, Awake, Oriented x3 Neuro motor strength exam: Left Upper Extremity: 0, Right Upper Extremity: 5, Left Lower Extremity: 0, Right Lower Extremity: 5 Additional comments: Left hemineglect Profound left upper extremity weakness, flaccid paralysis Some spontaneous movements in LLE, but no intentional movements Forehead-sparing left facial droop Unchanged since yesterday - Psychiatric Exam Psychiatric exam: Flat Affect - Skin Skin Exam: Dry, Intact Additional comments: See back exam Assessment and Plan - Assessment and Plan (Free Text) Assessment: 82yo female with history of DM type 2, hypertension, hyperlipidemia, hypothyroidism and GERD presents with altered mental status secondary to dementia vs CVA vs delirium due to UTI; code stroke called when patient was noted to have profound left sided weakness, not previously noted; now with SAH; unchanging mental status and neuro exam for two days 1. Altered mental status -Secondary to acute ischemic stroke - large infarct in right basal ganglia and bey radiata; also with subsequent development of SAH and hemorrhage in right posterior frontal lobe and right occipital lobe -Repeat head CT today ordered per neuro; shows stable infarct and hemorrhages -Continue ASA -BP goal, SBP 120-140 per discussion with neuro teams -Neurochecks Q4 -Continue PT, OT, and speech/swallow therapy -Patient will require acute rehab, per PT; pending placement at [facility] -Neurology on consult; appreciate recs 2. Hypertension -BP goal as above, considering hemorrhage -Continue clonidine patch, Losartan 100, and Metoprolol 25 PO BID -PRN labetalol for SBP >140 3. Leukocytosis - Patient has new leukocytosis, without fever today - Patient has no new complaints, denies pain, cough, dysuria - On exam, stage I sacral decubitus pressure injury noted, no skin breakdown, blanchable erythema - Ordered UA, CXR to r/o UTI and PNA - Ordered air mattress, frequent turning Q2, multivitamin, and zinc to avoid decubitus ulcer 4. Hyperlipidemia -Continue home statin 5. Hypothyroidism -Continue home synthroid 6. DM type 2 -Carb consistent diet -Fingersticks ACHS -Humalog ISS low dose 7. GI/DVT prophylaxis -Protonix/SCD - no anticoagulants considering hemorrhagic conversion Patient seen and case discussed/reviewed with attending, Dr. Ovalle <Crystal Ovalle - Last Filed: 03/21/17 17:34> Objective - Vital Signs/Intake and Output Vital Signs (last 24 hours): Temp Pulse Resp BP Pulse Ox 98.5 F 84 20 140/53 L 95 03/21/17 06:00 03/21/17 14:00 03/21/17 06:00 03/21/17 06:00 03/21/17 06:00 Intake and Output: 03/21/17 03/21/17 06:59 18:59 Intake Total 140 Output Total 300 Balance -160 - Medications Medications: Current Medications Aspirin (Ecotrin) 81 mg PO DAILY [facility] Last Admin: 03/21/17 09:43 Dose: 81 mg Atorvastatin Calcium (Lipitor) 40 mg PO DAILY [facility] Last Admin: 03/21/17 09:42 Dose: 40 mg Clonidine HCl (Catapres-Tts2 0.2 Mg/24 Hr) 1 patch TD Q7D@1000 [facility] Last Admin: 03/20/17 13:48 Dose: 1 patch Hydralazine HCl (Apresoline) 10 mg IVP Q6 PRN PRN Reason: Systolic Blood Pressure Insulin Human Lispro (Humalog Low) 0 units SC ACHS [facility] PRN Reason: Protocol Last Admin: 03/21/17 12:14 Dose: Not Given Levothyroxine Sodium (Synthroid) 25 mcg PO ACB [facility] Last Admin: 03/21/17 08:00 Dose: 25 mcg Losartan Potassium (Cozaar) 100 mg PO DAILY [facility] Last Admin: 03/21/17 09:43 Dose: 100 mg Magnesium Oxide (Mag-Ox) 400 mg PO BID [facility] Last Admin: 03/21/17 09:43 Dose: 400 mg Metoprolol Tartrate (Lopressor) 25 mg PO BID [facility] Last Admin: 03/21/17 09:42 Dose: 25 mg Multivitamins (Thera Tab) 1 tab PO DAILY [facility] Last Admin: 03/21/17 12:45 Dose: 1 tab Nystatin (Nystatin Oral Susp) 5 ml PO QID [facility] Last Admin: 03/21/17 15:19 Dose: Not Given Pantoprazole Sodium (Protonix Ec Tab) 40 mg PO ACB [facility] Last Admin: 03/21/17 08:00 Dose: 40 mg Zinc Sulfate (Zinc Sulfate 220 Mg Cap) 220 mg PO DAILY [facility] Last Admin: 03/21/17 12:45 Dose: 220 mg - Labs Labs: 03/21/17 07:20 03/21/17 07:20 PT 11.8 SECONDS (9.4-12.5) 03/16/17 16:25 INR 1.03 (0.93-1.08) 03/16/17 16:25 APTT 29.3 Seconds (25.1-36.5) 03/16/17 16:25 Attending/Attestation - Attestation I have personally seen and examined this patient.: Yes I have fully participated in the care of the patient.: Yes I have reviewed all pertinent clinical information, including history, physical exam and plan: Yes Notes (Text): I have seen and examined the patient with the resident. Agree with the above note with the following additions/ exceptions: Briefly this is 82 year old female with history of DM-, HTN, hyperlipidemia, hypothyroidism and gastroesophageal reflux disease who was admitted for altered mental status, noted to have left himplegia, right preference gaze and found to have MCA infarct. CT angios showed acute thrombus. Repeat CT revealed hemorrhagic stroke. Neuro on board. Continue aspirin and lipitor. Patient need repositioning q 2 hourly. Recommend air mattress, vitamin C, MVI and zinc sulfate. PT recommended acute rehab. Awaiting placement. Upon discharge patient will follow up with PMD of choice. Dr Crystal Ovalle
[2017-03-21] MEDS: Magnesium Oxide 400 mg Tab UD PO SCH ×2 (09:43→17:59)
[2017-03-21] MEDS: Insulin Lispro (humaLOG) LOW Coverage SC SCH ×4 (09:44→22:38)
[2017-03-21] MEDS: Nystatin 100,000 Units/ml Oral Susp 5 ml UD PO SCH ×4 (09:44→21:40)
--- NOTE | 2017-03-21 11:22 | RAD ---
HISTORY: r/o pna COMPARISON: 03/16/2017 FINDINGS: LUNGS: No active pulmonary disease. PLEURA: No significant pleural effusion identified, no pneumothorax apparent. CARDIOVASCULAR: Normal. OSSEOUS STRUCTURES: No significant abnormalities. VISUALIZED UPPER ABDOMEN: Normal. OTHER FINDINGS: None. IMPRESSION: No active disease.
--- NOTE | 2017-03-21 11:26 | PN ---
DATE: 03/21/2017 REASON FOR CONSULTATION: Followup cardiac evaluation, CVA, left-sided weakness. SUBJECTIVE: The patient denies any chest pain, shortness of breath or any palpitations. OBJECTIVE: GENERAL: The patient denies any chest pain. Not in apparent distress. Lying flat, awake and alert, respond to verbal stimuli. VITAL SIGNS: As follows, temperature afebrile, heart rate 60, blood pressure 140/53. HEENT: PERRLA, intact. NECK: Supple. No carotid bruits or thyromegaly. CHEST: Clear to auscultation. HEART: S1 and S2 regular. ABDOMEN: Soft. EXTREMITIES: Clubbing and cyanosis negative. LABORATORY DATA: Blood workup as follows: WBC 14.7, hemoglobin 10.9, hematocrit 35.3, and platelet count 328. Chemistry shows sodium 140, potassium 3.6, chloride 105, carbon dioxide 30, anion gap of 10, BUN 14, and creatinine 0.8. IMPRESSION: Acute cerebrovascular accident with left-sided upper and lower extremity weakness. Repeat CAT scan shows new subcortical hemorrhage, small amount subarachnoid blood can be seen within the occipital lobes on MRI, hypertension, diabetes, hyperlipidemia, right preference gaze. Repeat CAT scan shows hemorrhage, third repeat is done this morning, result pending, is being just processed. RECOMMENDATIONS: Aggressive control of blood pressure. Started the patient on clonidine patch yesterday. Continue hydralazine p.r.n. Continue losartan, aspirin as per Neurology. Continue beta-helga. We will follow with you. Increase Renal support. Out of bed to chair, rehab. We will supplement potassium, potassium is low. Hector Lopez MD
[2017-03-21] MEDS: Multivitamin Therapeutic Tab PO SCH (12:45)
[2017-03-21 12:57] LABS: URINE BILIRUBIN NEGATIVE (NEGATIVE); URINE BLOOD NEGATIVE (NEGATIVE); URINE GLUCOSE (UA) 100 mg/dL (NEGATIVE); URINE LEUKOCYTE ESTERASE TRACE Leu/uL (NEGATIVE); URINE NITRATE NEGATIVE (NEGATIVE); URINE PROTEIN 30 mg/dL (<30 mg/dL); URINE UROBILINOGEN 0.2 E.U./dL (<1 E.U./dL)
[2017-03-21 12:58] LABS: URINE APPEARANCE CLEAR (CLEAR); URINE COLOR YELLOW (YELLOW)
[2017-03-21 13:06] LABS: URINE BACTERIA MANY (NEG); URINE RBC NEGATIVE /hpf (0-2); URINE WBC 0 - 2 /hpf (0-6)
[2017-03-21] MEDS ORDERED: Albuterol-Ipratrop 3 mg / 0.5 (3 ml) UD IH ONE (16:09)
[2017-03-22 06:01] LABS: BASO # 0.02 [, K/mm3] (0.0-2.0); BASO % 0.1 % (0.0-3.0); EOS # 0.1 (0.0-0.7); EOS % 0.8 % (1.5-5.0); GRAN # 13.26 (1.4-6.5); HEMOGLOBIN 11.4 g/dL (12.0-16.0); LYMPH # 1.1 (1.2-3.4); LYMPH % 7.1 % (22.0-35.0); MEAN CELL VOLUME 97.9 fl (80.0-105.0); MEAN CORPUSCULAR HGB CONC 30.6 g/dl (31.0-37.0); MEAN PLATELET VOLUME 10.5 fl (7.0-11.0); MONO # 0.8 (0.1-0.6); RBC 3.8 [, 10^6/uL] (3.5-6.1); RED CELL DISTRIBUTION WIDTH 13.7 % (11.5-14.5); WHITE BLOOD COUNT 15.3 [, 10^3/ul] (4.5-11.0)
[2017-03-22 06:34] LABS: ALB/GLOB RATIO 0.9 (1.1-1.8); ALBUMIN 3.4 g/dL (3.0-4.8); ALT/SGPT 25 U/L (7-56); AST/SGOT 21 U/L (14-36); BLOOD UREA NITROGEN 17 mg/dL (7-21); CALCIUM 9.4 mg/dL (8.4-10.5); GFR AFRICAN-AMERICAN > 60; GFR NON-AFRICAN AMERICAN > 60; MAGNESIUM 1.9 mg/dL (1.7-2.2)
[2017-03-22] MEDS ORDERED: Potassium Chloride 20 mEq ER Tab PO ONE (08:28)
[2017-03-22] MEDS: Insulin Lispro (humaLOG) LOW Coverage SC SCH ×3 (08:49→17:15)
[2017-03-22] MEDS: Pantoprazole 40 mg EC Tab PO SCH (08:50)
[2017-03-22] MEDS: Levothyroxine 25 MCG TAB PO SCH (08:51)
--- NOTE | 2017-03-22 12:19 | CP.PCM.PN ---
<AuroraFelicity - Last Filed: 03/22/17 13:47> Subjective - Date & Time of Evaluation Date of Evaluation: 03/22/17 Time of Evaluation: 07:30 - Subjective Subjective: Felicity Simon DO PGY1 - Internal Medicine Progress Note Patient seen and examined at bedside. Patient has no particular complaints. She denies any headache, chest pain, SOB. She is awake, alert, oriented to person, place, and time. Continues to have left hemineglect and flaccid paresis. Objective - Vital Signs/Intake and Output Vital Signs (last 24 hours): Temp Pulse Resp BP Pulse Ox 98 F 116 H 21 139/76 96 03/22/17 07:03 03/22/17 10:00 03/22/17 06:00 03/22/17 06:00 03/22/17 06:00 Intake and Output: 03/22/17 03/22/17 06:59 18:59 Output Total 500 Balance -500 - Medications Medications: Current Medications Aspirin (Ecotrin) 81 mg PO DAILY [facility] Last Admin: 03/21/17 09:43 Dose: 81 mg Atorvastatin Calcium (Lipitor) 40 mg PO DAILY [facility] Last Admin: 03/21/17 09:42 Dose: 40 mg Clonidine HCl (Catapres-Tts2 0.2 Mg/24 Hr) 1 patch TD Q7D@1000 [facility] Last Admin: 03/20/17 13:48 Dose: 1 patch Hydralazine HCl (Apresoline) 10 mg IVP Q6 PRN PRN Reason: Systolic Blood Pressure Last Admin: 03/22/17 05:33 Dose: 10 mg Insulin Human Lispro (Humalog Low) 0 units SC ACHS [facility] PRN Reason: Protocol Last Admin: 03/22/17 08:49 Dose: Not Given Levothyroxine Sodium (Synthroid) 25 mcg PO ACB [facility] Last Admin: 03/22/17 08:51 Dose: 25 mcg Losartan Potassium (Cozaar) 100 mg PO DAILY [facility] Last Admin: 03/21/17 09:43 Dose: 100 mg Magnesium Oxide (Mag-Ox) 400 mg PO BID [facility] Last Admin: 03/21/17 17:59 Dose: 400 mg Metoprolol Tartrate (Lopressor) 25 mg PO BID [facility] Last Admin: 03/21/17 17:59 Dose: 25 mg Multivitamins (Thera Tab) 1 tab PO DAILY [facility] Last Admin: 03/21/17 12:45 Dose: 1 tab Nystatin (Nystatin Oral Susp) 5 ml PO QID [facility] Last Admin: 03/21/17 21:40 Dose: 5 ml Pantoprazole Sodium (Protonix Ec Tab) 40 mg PO ACB [facility] Last Admin: 03/22/17 08:50 Dose: 40 mg Zinc Sulfate (Zinc Sulfate 220 Mg Cap) 220 mg PO DAILY [facility] Last Admin: 03/21/17 12:45 Dose: 220 mg - Labs Labs: 03/22/17 05:30 03/22/17 05:30 PT 11.8 SECONDS (9.4-12.5) 03/16/17 16:25 INR 1.03 (0.93-1.08) 03/16/17 16:25 APTT 29.3 Seconds (25.1-36.5) 03/16/17 16:25 - Constitutional Appears: Non-toxic, No Acute Distress, Confused, Other (Left hemineglect, right preferential gaze) - Eye Exam Eye Exam: EOMI, Normal appearance, PERRL Additional comments: Left hemineglect. Able to track fingers to the left past midline, but cannot consistently recognize objects placed in her left field of view - ENT Exam ENT Exam: Mucous Membranes Moist - Neck Exam Neck Exam: Normal Inspection - Respiratory Exam Respiratory Exam: Clear to Ausculation Bilateral, NORMAL BREATHING PATTERN - Cardiovascular Exam Cardiovascular Exam: Tachycardia, REGULAR RHYTHM, +S1, +S2 - GI/Abdominal Exam GI & Abdominal Exam: Soft, Normal Bowel Sounds. absent: Tenderness - Extremities Exam Extremities Exam: absent: Calf Tenderness, Pedal Edema - Back Exam Additional comments: Blanchable erythema over sacrum, without skin breakdown, unchanged since yesterday - Neurological Exam Neurological Exam: Alert, Awake, Oriented x3 Neuro motor strength exam: Left Upper Extremity: 0, Right Upper Extremity: 5, Left Lower Extremity: 0 (No intentional movement), Right Lower Extremity: 5 Additional comments: Motor exam unchanged since yesterday Patient has regained sensation in the left arm, which was totally absent before - Psychiatric Exam Psychiatric exam: Flat Affect - Skin Skin Exam: Dry, Intact Assessment and Plan - Assessment and Plan (Free Text) Assessment: 82yo female with history of DM type 2, hypertension, hyperlipidemia, hypothyroidism and GERD presents with altered mental status secondary to dementia vs CVA vs delirium due to UTI; code stroke called when patient was noted to have profound left sided weakness, not previously noted; now with SAH; unchanging mental status and neuro exam for two days 1. Altered mental status -Secondary to acute ischemic stroke - large infarct in right basal ganglia and bey radiata; also with subsequent development of SAH and hemorrhage in right posterior frontal lobe and right occipital lobe -Continue ASA -BP goal, SBP 120-140 per discussion with neuro teams -Neurochecks Q4 -Continue PT, OT, and speech/swallow therapy -Patient will require acute rehab, per PT; pending placement; patient was accepted at [place], but family requested placement at facility nearer to their home -Neurology on consult; appreciate recs 2. Hypertension -BP goal as above, considering hemorrhage -Continue clonidine patch, Losartan 100; Metoprolol increased to 50 PO BID -PRN labetalol for SBP >140, hold for HR <60 3. Leukocytosis - Persistent leukocytosis, without fever today; now with tachycardia this AM; patient complaining of thirst - Patient still denies pain, cough, dysuria - On exam, stage I sacral decubitus pressure injury noted, no skin breakdown, blanchable erythema - UA shows positive LE, moderate bacteria, without pyuria; only apparent source besides skin; ordered UCx - Start Levaquin 750mg PO daily x5d - CXR negative - Ordered procal to r/o or confirm bacterial etiology and assess for risk of sepsis - Continue air mattress, frequent turning Q2, multivitamin, and zinc to avoid decubitus ulcer 4. Hyperlipidemia -Continue home statin 5. Hypothyroidism -Continue home synthroid 6. DM type 2 -Carb consistent diet -Fingersticks ACHS -Humalog ISS low dose 7. GI/DVT prophylaxis -Protonix/SCD - no anticoagulants considering hemorrhagic conversion Patient seen and case discussed/reviewed with attending, Dr. Ovalle <Crystal Ovalle - Last Filed: 03/22/17 17:41> Objective - Vital Signs/Intake and Output Vital Signs (last 24 hours): Temp Pulse Resp BP Pulse Ox 98 F 78 21 139/76 96 03/22/17 07:03 03/22/17 14:00 03/22/17 06:00 03/22/17 06:00 03/22/17 06:00 Intake and Output: 03/22/17 03/22/17 06:59 18:59 Output Total 500 Balance -500 - Medications Medications: Current Medications Aspirin (Ecotrin) 81 mg PO DAILY [facility] Last Admin: 03/21/17 09:43 Dose: 81 mg Atorvastatin Calcium (Lipitor) 40 mg PO DAILY [facility] Last Admin: 03/21/17 09:42 Dose: 40 mg Clonidine HCl (Catapres-Tts2 0.2 Mg/24 Hr) 1 patch TD Q7D@1000 [facility] Last Admin: 03/20/17 13:48 Dose: 1 patch Hydralazine HCl (Apresoline) 10 mg IVP Q6 PRN PRN Reason: Systolic Blood Pressure Last Admin: 03/22/17 05:33 Dose: 10 mg Insulin Human Lispro (Humalog Low) 0 units SC ACHS [facility] PRN Reason: Protocol Last Admin: 03/22/17 14:36 Dose: Not Given Levofloxacin (Levaquin) 750 mg PO DAILY [facility] Stop: 03/27/17 13:46 Last Admin: 03/22/17 14:22 Dose: 750 mg Levothyroxine Sodium (Synthroid) 25 mcg PO ACB [facility] Last Admin: 03/22/17 08:51 Dose: 25 mcg Losartan Potassium (Cozaar) 100 mg PO DAILY [facility] Last Admin: 03/21/17 09:43 Dose: 100 mg Magnesium Oxide (Mag-Ox) 400 mg PO BID [facility] Last Admin: 03/21/17 17:59 Dose: 400 mg Metoprolol Tartrate (Lopressor) 50 mg PO BID [facility] Multivitamins (Thera Tab) 1 tab PO DAILY [facility] Last Admin: 03/21/17 12:45 Dose: 1 tab Nystatin (Nystatin Oral Susp) 5 ml PO QID [facility] Last Admin: 03/22/17 14:23 Dose: 5 ml Pantoprazole Sodium (Protonix Ec Tab) 40 mg PO ACB [facility] Last Admin: 03/22/17 08:50 Dose: 40 mg Zinc Sulfate (Zinc Sulfate 220 Mg Cap) 220 mg PO DAILY [facility] Last Admin: 03/21/17 12:45 Dose: 220 mg - Labs Labs: 03/22/17 05:30 03/22/17 05:30 PT 11.8 SECONDS (9.4-12.5) 03/16/17 16:25 INR 1.03 (0.93-1.08) 03/16/17 16:25 APTT 29.3 Seconds (25.1-36.5) 03/16/17 16:25 Attending/Attestation - Attestation I have personally seen and examined this patient.: Yes I have fully participated in the care of the patient.: Yes I have reviewed all pertinent clinical information, including history, physical exam and plan: Yes Notes (Text): I have seen and examined the patient with the resident. Agree with the above note with the following additions/ exceptions: Briefly this is 82 year old female with history of DM, HTN, hyperlipidemia, hypothyroidism and gastroesophageal reflux disease who was admitted for altered mental status, noted to have left himplegia, right preference gaze and found to have MCA infarct. CT angios showed acute thrombus. Repeat CT revealed hemorrhagic stroke. Neuro on board. Continue aspirin and lipitor. Patient need repositioning q 2 hourly. Recommend air mattress. Continue vitamin C, MVI and zinc sulfate. PT recommended acute rehab. Awaiting placement. Today she denies any complaints however there is slight worsening of leukocytosis. Urine culture and procal ordered. Will start levaquin empirically and discuss with ID. Upon discharge patient will follow up with PMD of choice. Dr Crystal Ovalle
[2017-03-22] MEDS: levoFLOXacin 750 MG TAB PO SCH (14:22)
[2017-03-22] MEDS: Nystatin 100,000 Units/ml Oral Susp 5 ml UD PO SCH ×3 (14:23→21:29)
[2017-03-22] MEDS: Magnesium Oxide 400 mg Tab UD PO SCH (17:14)
[2017-03-23 05:53] LABS: BASO # 0.03 [, K/mm3] (0.0-2.0); BASO % 0.2 % (0.0-3.0); EOS # 0.1 (0.0-0.7); EOS % 0.4 % (1.5-5.0); GRAN # 15.37 (1.4-6.5); GRAN % 86.4 % (50.0-68.0); HEMOGLOBIN 12.3 g/dL (12.0-16.0); LYMPH # 1.5 (1.2-3.4); LYMPH % 8.4 % (22.0-35.0); MEAN CELL VOLUME 97.3 fl (80.0-105.0); MEAN CORPUSCULAR HEMOGLOBIN 30.8 pg (25.0-35.0); MEAN CORPUSCULAR HGB CONC 31.6 g/dl (31.0-37.0); MEAN PLATELET VOLUME 10.2 fl (7.0-11.0); MONO # 0.8 (0.1-0.6); MONO % 4.6 % (1.0-6.0); RED CELL DISTRIBUTION WIDTH 13.3 % (11.5-14.5); WHITE BLOOD COUNT 17.8 [, 10^3/ul] (4.5-11.0)
[2017-03-23 06:07] LABS: ALB/GLOB RATIO 0.9 (1.1-1.8); ALBUMIN 3.3 g/dL (3.0-4.8); ALT/SGPT 23 U/L (7-56); AST/SGOT 20 U/L (14-36); BLOOD UREA NITROGEN 15 mg/dL (7-21); CALCIUM 9.7 mg/dL (8.4-10.5); GFR AFRICAN-AMERICAN > 60; GFR NON-AFRICAN AMERICAN > 60
--- NOTE | 2017-03-23 07:21 | CP.PCM.PN ---
Subjective - Date & Time of Evaluation Date of Evaluation: 03/23/17 Time of Evaluation: 07:17 - Subjective Subjective: Ms. Shields was seen and examined at the bedside in ICU. She is alert, oriented to place ([facility]), person ([facility]), but not time (1927). She is able to answer few questions and follow commands. She denies any headache, dizziness, blurred vision, nausea, or vomiting. She remains with left facial palsy, and left side paralysis. She has the bilateral lower SCD's. There was no untoward events overnight. Objective - Vital Signs/Intake and Output Vital Signs (last 24 hours): Temp Pulse Resp BP Pulse Ox 98.2 F 72 17 136/55 L 96 03/23/17 04:00 03/23/17 06:00 03/23/17 04:00 03/23/17 04:00 03/23/17 04:00 Intake and Output: 03/23/17 03/23/17 06:59 18:59 Intake Total 120 Output Total 150 Balance -30 - Medications Medications: Current Medications Aspirin (Ecotrin) 81 mg PO DAILY [facility] Last Admin: 03/21/17 09:43 Dose: 81 mg Atorvastatin Calcium (Lipitor) 40 mg PO DAILY [facility] Last Admin: 03/21/17 09:42 Dose: 40 mg Clonidine HCl (Catapres-Tts2 0.2 Mg/24 Hr) 1 patch TD Q7D@1000 [facility] Last Admin: 03/20/17 13:48 Dose: 1 patch Hydralazine HCl (Apresoline) 10 mg IVP Q6 PRN PRN Reason: Systolic Blood Pressure Last Admin: 03/22/17 05:33 Dose: 10 mg Insulin Human Lispro (Humalog Low) 0 units SC ACHS [facility] PRN Reason: Protocol Last Admin: 03/22/17 17:15 Dose: Not Given Levofloxacin (Levaquin) 750 mg PO DAILY [facility] Stop: 03/27/17 13:46 Last Admin: 03/22/17 14:22 Dose: 750 mg Levothyroxine Sodium (Synthroid) 25 mcg PO ACB [facility] Last Admin: 03/22/17 08:51 Dose: 25 mcg Losartan Potassium (Cozaar) 100 mg PO DAILY [facility] Last Admin: 03/21/17 09:43 Dose: 100 mg Magnesium Oxide (Mag-Ox) 400 mg PO BID [facility] Last Admin: 03/22/17 17:14 Dose: 400 mg Metoprolol Tartrate (Lopressor) 50 mg PO BID [facility] Last Admin: 03/22/17 17:15 Dose: 50 mg Multivitamins (Thera Tab) 1 tab PO DAILY [facility] Last Admin: 03/21/17 12:45 Dose: 1 tab Nystatin (Nystatin Oral Susp) 5 ml PO QID [facility] Last Admin: 03/22/17 21:29 Dose: 5 ml Pantoprazole Sodium (Protonix Ec Tab) 40 mg PO ACB [facility] Last Admin: 03/22/17 08:50 Dose: 40 mg Zinc Sulfate (Zinc Sulfate 220 Mg Cap) 220 mg PO DAILY [facility] Last Admin: 03/21/17 12:45 Dose: 220 mg - Labs Labs: 03/23/17 05:30 03/23/17 05:30 PT 11.8 SECONDS (9.4-12.5) 03/16/17 16:25 INR 1.03 (0.93-1.08) 03/16/17 16:25 APTT 29.3 Seconds (25.1-36.5) 03/16/17 16:25 - Constitutional Appears: No Acute Distress - Head Exam Head Exam: NORMAL INSPECTION - Neurological Exam Neurological Exam: Alert, Awake Neuro motor strength exam: Left Upper Extremity: 0, Right Upper Extremity: 3, Left Lower Extremity: 0, Right Lower Extremity: 3 Additional comments: neurological unchanged from previous examination. Assessment and Plan (1) Ischemic stroke Assessment & Plan: Case discussed with Dr. Gooden, continue all current medical, physical, and occupational therapies. Recommends acute rehab for discharge planning. Status: Acute
[2017-03-23] MEDS: Pantoprazole 40 mg EC Tab PO SCH (07:52)
[2017-03-23] MEDS: Levothyroxine 25 MCG TAB PO SCH (07:52)
[2017-03-23] MEDS: Insulin Lispro (humaLOG) LOW Coverage SC SCH ×2 (07:53→11:35)
[2017-03-23] MEDS: Nystatin 100,000 Units/ml Oral Susp 5 ml UD PO SCH ×3 (09:26→21:43)
[2017-03-23] MEDS: Multivitamin Therapeutic Tab PO SCH (09:27)
[2017-03-23] MEDS: Magnesium Oxide 400 mg Tab UD PO SCH ×2 (09:28→17:31)
[2017-03-23] MEDS: levoFLOXacin 750 MG TAB PO SCH (10:06)
--- NOTE | 2017-03-23 12:44 | CP.PCM.PN ---
<AuroraSalmitchell - Last Filed: 03/23/17 12:41> Subjective - Date & Time of Evaluation Date of Evaluation: 03/23/17 Time of Evaluation: 07:30 - Subjective Subjective: Felicity Simon DO PGY1 - Internal Medicine Progress Note Patient seen and examined at bedside. Patient has no particular complaints. She denies any headache, chest pain, SOB, back pain, dysuria, cough. She is awake, alert, oriented to person, place, and time. Continues to have left hemineglect and flaccid paresis. Objective - Vital Signs/Intake and Output Vital Signs (last 24 hours): Temp Pulse Resp BP Pulse Ox 98.2 F 84 18 142/61 99 03/23/17 08:00 03/23/17 09:28 03/23/17 07:00 03/23/17 09:28 03/23/17 07:00 Intake and Output: 03/23/17 03/23/17 06:59 18:59 Intake Total 120 Output Total 150 Balance -30 - Medications Medications: Current Medications Aspirin (Ecotrin) 81 mg PO DAILY [facility] Last Admin: 03/23/17 09:27 Dose: 81 mg Atorvastatin Calcium (Lipitor) 40 mg PO DAILY [facility] Last Admin: 03/23/17 09:28 Dose: 40 mg Clonidine HCl (Catapres-Tts2 0.2 Mg/24 Hr) 1 patch TD Q7D@1000 [facility] Last Admin: 03/20/17 13:48 Dose: 1 patch Hydralazine HCl (Apresoline) 10 mg IVP Q6 PRN PRN Reason: Systolic Blood Pressure Last Admin: 03/22/17 05:33 Dose: 10 mg Insulin Human Lispro (Humalog Low) 0 units SC ACHS [facility] PRN Reason: Protocol Last Admin: 03/23/17 07:53 Dose: Not Given Levofloxacin (Levaquin) 750 mg PO DAILY [facility] Stop: 03/27/17 13:46 Last Admin: 03/23/17 10:06 Dose: 750 mg Levothyroxine Sodium (Synthroid) 25 mcg PO ACB [facility] Last Admin: 03/23/17 07:52 Dose: 25 mcg Losartan Potassium (Cozaar) 100 mg PO DAILY [facility] Last Admin: 03/23/17 09:27 Dose: 100 mg Magnesium Oxide (Mag-Ox) 400 mg PO BID [facility] Last Admin: 03/23/17 09:28 Dose: 400 mg Metoprolol Tartrate (Lopressor) 50 mg PO BID [facility] Last Admin: 03/23/17 09:28 Dose: 50 mg Multivitamins (Thera Tab) 1 tab PO DAILY [facility] Last Admin: 03/23/17 09:27 Dose: 1 tab Nystatin (Nystatin Oral Susp) 5 ml PO QID [facility] Last Admin: 03/23/17 09:26 Dose: 5 ml Pantoprazole Sodium (Protonix Ec Tab) 40 mg PO ACB [facility] Last Admin: 03/23/17 07:52 Dose: 40 mg Zinc Sulfate (Zinc Sulfate 220 Mg Cap) 220 mg PO DAILY [facility] Last Admin: 03/23/17 09:26 Dose: 220 mg - Labs Labs: 03/23/17 05:30 03/23/17 05:30 PT 11.8 SECONDS (9.4-12.5) 03/16/17 16:25 INR 1.03 (0.93-1.08) 03/16/17 16:25 APTT 29.3 Seconds (25.1-36.5) 03/16/17 16:25 - Constitutional Appears: Non-toxic, No Acute Distress - Head Exam Head Exam: ATRAUMATIC, NORMOCEPHALIC - Eye Exam Eye Exam: EOMI, Normal appearance, PERRL Additional comments: Rightward preferential gaze. Able to track fingers to the left past midline; redirects gaze towards fingers in left field of view when asked about how many are held up which is an improvement since yesterday. - ENT Exam ENT Exam: Mucous Membranes Moist - Neck Exam Neck Exam: Normal Inspection - Respiratory Exam Respiratory Exam: Clear to Ausculation Bilateral, NORMAL BREATHING PATTERN - Cardiovascular Exam Cardiovascular Exam: Tachycardia, REGULAR RHYTHM, +S1, +S2 - GI/Abdominal Exam GI & Abdominal Exam: Soft, Normal Bowel Sounds. absent: Tenderness - Extremities Exam Extremities Exam: absent: Calf Tenderness, Pedal Edema - Back Exam Additional comments: Blanchable erythema over sacrum, without skin breakdown, unchanged since yesterday - Neurological Exam Neurological Exam: Alert, Awake, Oriented x3 Neuro motor strength exam: Left Upper Extremity: 0, Right Upper Extremity: 5, Left Lower Extremity: 0, Right Lower Extremity: 5 Additional comments: Motor exam unchanged since yesterday Sensation in left arm unchanged since yesterday - Psychiatric Exam Psychiatric exam: Flat Affect - Skin Skin Exam: Dry, Intact Assessment and Plan - Assessment and Plan (Free Text) Assessment: 82yo female with history of DM type 2, hypertension, hyperlipidemia, hypothyroidism and GERD presents with altered mental status secondary to dementia vs CVA vs delirium due to UTI; code stroke called when patient was noted to have profound left sided weakness, not previously noted; now with SAH; unchanging mental status and neuro exam for two days 1. CVA -Patient initially presented with AMS; patient still with slowed mentation, occasional confusion, but is AAOx3, responds to questions appropriately, memory and cognition grossly intact, obeying simple and some complex commands -Continue ASA -BP goal, SBP 120-140 per discussion with neuro team -Neurochecks Q4 -Continue PT, OT, and speech/swallow therapy -Patient will require acute rehab, per PT; patient was accepted at [facility], but family requested placement at facility nearer to their home -Neurology on consult; appreciate recs 2. Hypertension -BP goal as above, considering hemorrhage -Continue clonidine patch, Losartan 100, Metoprolol 50 PO BID -Patient had elevated HR yesterday, sinus tachycardia; metoprolol was increased , with some improvement, though continues to have occasional bouts of sinus tachycardia in the 100's -PRN labetalol for SBP >140 or HR>110, hold for HR <60 3. Leukocytosis - Persistent uptrending leukocytosis, without fever today - Patient has noted history of chronically elevated WBC for many years, concerning for myeloproliferative disorder - Ordered peripheral smear - UCx pending - Continue Levaquin 750mg PO daily x5d - Procal low, unlikely bacterial infection - Per discussion with ID (Dr. Ag) continue to monitor vitals and CBC for 24 hours after initiating antibiotics; pending UCx - Continue air mattress, frequent turning Q2, multivitamin, and zinc to avoid decubitus ulcer 4. Hyperlipidemia -Continue home statin 5. Hypothyroidism -Continue home synthroid 6. DM type 2 -Carb consistent diet -Fingersticks ACHS -Humalog ISS low dose 7. GI/DVT prophylaxis -Protonix/SCD - no anticoagulants considering hemorrhagic conversion Patient seen and case discussed/reviewed with attending, Dr. Ovalle <Crystal Ovalle - Last Filed: 03/24/17 17:37> Objective - Vital Signs/Intake and Output Vital Signs (last 24 hours): Temp Pulse Resp BP Pulse Ox 98.2 F 67 19 124/57 L 95 03/23/17 08:00 03/23/17 13:00 03/23/17 12:00 03/23/17 12:00 03/23/17 13:00 Intake and Output: 03/23/17 03/23/17 06:59 18:59 Intake Total 120 Output Total 150 Balance -30 - Medications Medications: Current Medications Aspirin (Ecotrin) 81 mg PO DAILY [facility] Last Admin: 03/23/17 09:27 Dose: 81 mg Atorvastatin Calcium (Lipitor) 40 mg PO DAILY [facility] Last Admin: 03/23/17 09:28 Dose: 40 mg Clonidine HCl (Catapres-Tts2 0.2 Mg/24 Hr) 1 patch TD Q7D@1000 [facility] Last Admin: 03/20/17 13:48 Dose: 1 patch Hydralazine HCl (Apresoline) 10 mg IVP Q6 PRN PRN Reason: Systolic Blood Pressure Last Admin: 03/22/17 05:33 Dose: 10 mg Insulin Human Lispro (Humalog Low) 0 units SC ACHS [facility] PRN Reason: Protocol Last Admin: 03/23/17 07:53 Dose: Not Given Levofloxacin (Levaquin) 750 mg PO DAILY [facility] Stop: 03/27/17 13:46 Last Admin: 03/23/17 10:06 Dose: 750 mg Levothyroxine Sodium (Synthroid) 25 mcg PO ACB [facility] Last Admin: 03/23/17 07:52 Dose: 25 mcg Losartan Potassium (Cozaar) 100 mg PO DAILY [facility] Last Admin: 03/23/17 09:27 Dose: 100 mg Magnesium Oxide (Mag-Ox) 400 mg PO BID [facility] Last Admin: 03/23/17 09:28 Dose: 400 mg Metoprolol Tartrate (Lopressor) 50 mg PO BID [facility] Last Admin: 03/23/17 09:28 Dose: 50 mg Multivitamins (Thera Tab) 1 tab PO DAILY [facility] Last Admin: 03/23/17 09:27 Dose: 1 tab Nystatin (Nystatin Oral Susp) 5 ml PO QID [facility] Last Admin: 03/23/17 09:26 Dose: 5 ml Pantoprazole Sodium (Protonix Ec Tab) 40 mg PO ACB [facility] Last Admin: 03/23/17 07:52 Dose: 40 mg Zinc Sulfate (Zinc Sulfate 220 Mg Cap) 220 mg PO DAILY [facility] Last Admin: 03/23/17 09:26 Dose: 220 mg - Labs Labs: 03/23/17 05:30 03/23/17 05:30 PT 11.8 SECONDS (9.4-12.5) 03/16/17 16:25 INR 1.03 (0.93-1.08) 03/16/17 16:25 APTT 29.3 Seconds (25.1-36.5) 03/16/17 16:25 Attending/Attestation - Attestation I have personally seen and examined this patient.: Yes I have fully participated in the care of the patient.: Yes I have reviewed all pertinent clinical information, including history, physical exam and plan: Yes Notes (Text): I have seen and examined the patient with the resident. Agree with the above note with the following additions/ exceptions: Briefly this is 82 year old female with history of DM, HTN, hyperlipidemia, hypothyroidism and gastroesophageal reflux disease who was admitted for altered mental status, noted to have left hemiplegia, right preference gaze and found to have MCA infarct. CT angios showed acute thrombus. Repeat CT revealed hemorrhagic stroke. Neuro on board. Continue aspirin and lipitor. Patient need repositioning frequently. Recommend air mattress. Continue vitamin C, MVI and zinc sulfate. PT recommended acute rehab. Awaiting placement. Today she denies any complaints other than being thirsty. Discussed with speech therapist. Continue puree diet. There is persistent worsening of leukocytosis. Of note, patient had leukocytosis in the past and for that she was seeing Dr Wan. Urine culture negative. Procal negative. Will continue levaquin empirically as per ID. Upon discharge patient will follow up with PMD of choice. Dr Crystal Ovalle
--- NOTE | 2017-03-23 18:04 | CP.PCM.PN ---
Subjective - Date & Time of Evaluation Date of Evaluation: 03/23/17 Time of Evaluation: 16:30 - Subjective Subjective: Infectious Disease Follow Up: March 23, 2017 Patient is a 82yo female with past medical history of diabetes mellitus type 2, hypertension, hyperlipidemia, hypothyroidism and GERD that presents accompanied by family with reports of increased lethargy, weakness and altered mental status. Per patients son, over the course of the last couple months family had noticed a change in her personality and having become more forgetful as of late. Additionally, over the last several days patient had been bed bound, unable to care for herself and has had a lack of appetite. Family reports that she had been to her PMD, Dr. Head several weeks prior and was reportedly treated for a UTI. She had also been scheduled to see Dr. Wan (hematology/ oncology) for workup of possible leukemia. Family reported that when they came to visit today she appeared confused, weak and lethargic which prompted their visit to the emergency room. Patient denied chest pain, palpitations, SOB, abdominal pain, nausea, vomiting, fever, chills, cough. Diagnosed with stroke. The patient with left sided weakness/flaccid paresis, left hemineglect, and facial droop. Recently treated for a UTI. She appears awake and alert. Leukocytosis increasing. No obvious infectious etiology found at this time. Silva cultures and urine cultures sent. Procalcitonin remains low. Objective - Vital Signs/Intake and Output Vital Signs (last 24 hours): Temp Pulse Resp BP Pulse Ox 98.1 F 71 19 165/65 H 95 03/23/17 12:00 03/23/17 17:31 03/23/17 12:00 03/23/17 17:31 03/23/17 13:00 Intake and Output: 03/23/17 03/23/17 06:59 18:59 Intake Total 120 210 Output Total 150 320 Balance -30 -110 - Medications Medications: Current Medications Aspirin (Ecotrin) 81 mg PO DAILY [facility] Last Admin: 03/23/17 09:27 Dose: 81 mg Atorvastatin Calcium (Lipitor) 40 mg PO DAILY [facility] Last Admin: 03/23/17 09:28 Dose: 40 mg Clonidine HCl (Catapres-Tts2 0.2 Mg/24 Hr) 1 patch TD Q7D@1000 [facility] Last Admin: 03/20/17 13:48 Dose: 1 patch Hydralazine HCl (Apresoline) 10 mg IVP Q6 PRN PRN Reason: Systolic Blood Pressure Last Admin: 03/22/17 05:33 Dose: 10 mg Insulin Human Lispro (Humalog Low) 0 units SC ACHS [facility] PRN Reason: Protocol Last Admin: 03/23/17 11:35 Dose: Not Given Levofloxacin (Levaquin) 750 mg PO DAILY [facility] Stop: 03/27/17 13:46 Last Admin: 03/23/17 10:06 Dose: 750 mg Levothyroxine Sodium (Synthroid) 25 mcg PO ACB [facility] Last Admin: 03/23/17 07:52 Dose: 25 mcg Losartan Potassium (Cozaar) 100 mg PO DAILY [facility] Last Admin: 03/23/17 09:27 Dose: 100 mg Magnesium Oxide (Mag-Ox) 400 mg PO BID [facility] Last Admin: 03/23/17 17:31 Dose: 400 mg Metoprolol Tartrate (Lopressor) 50 mg PO BID [facility] Last Admin: 03/23/17 17:31 Dose: 50 mg Multivitamins (Thera Tab) 1 tab PO DAILY [facility] Last Admin: 03/23/17 09:27 Dose: 1 tab Nystatin (Nystatin Oral Susp) 5 ml PO QID [facility] Last Admin: 03/23/17 14:45 Dose: 5 ml Pantoprazole Sodium (Protonix Ec Tab) 40 mg PO ACB [facility] Last Admin: 03/23/17 07:52 Dose: 40 mg Zinc Sulfate (Zinc Sulfate 220 Mg Cap) 220 mg PO DAILY [facility] Last Admin: 03/23/17 09:26 Dose: 220 mg - Labs Labs: 03/23/17 05:30 03/23/17 05:30 PT 11.8 SECONDS (9.4-12.5) 03/16/17 16:25 INR 1.03 (0.93-1.08) 03/16/17 16:25 APTT 29.3 Seconds (25.1-36.5) 03/16/17 16:25 - Constitutional Appears: Non-toxic, No Acute Distress, Chronically Ill - Head Exam Head Exam: ATRAUMATIC, NORMOCEPHALIC - Eye Exam Additional comments: Rightward preferential gaze. Able to track fingers to the left past midline. - ENT Exam ENT Exam: Mucous Membranes Moist - Neck Exam Neck Exam: Normal Inspection - Respiratory Exam Respiratory Exam: Clear to Ausculation Bilateral, NORMAL BREATHING PATTERN. absent: Rales, Rhonchi, Wheezes - Cardiovascular Exam Cardiovascular Exam: Tachycardia, REGULAR RHYTHM, +S1, +S2 - GI/Abdominal Exam GI & Abdominal Exam: Soft, Tenderness, Normal Bowel Sounds - Extremities Exam Extremities Exam: absent: Joint Swelling, Pedal Edema - Neurological Exam Neurological Exam: Alert, Awake, Oriented x3 Neuro motor strength exam: Left Upper Extremity: 0, Right Upper Extremity: 5, Left Lower Extremity: 0, Right Lower Extremity: 5 - Psychiatric Exam Psychiatric exam: Flat Affect - Skin Skin Exam: Dry, Intact Assessment and Plan - Assessment and Plan (Free Text) Assessment: 82 yo female with CVA initially with no infectious etiology when first seen in the MICU. The patient has had poor recovery of the neurological functions of the patient's left side. The patient has had a slowly progressive WBC now up to 17.8. No fevers or chills. Cannot rule out viral etiology and would retest for Influenza. Would also investigate for any progression of the CVA. Monitor WBC and the differential. Silva cultures. Low procalcitonin on two checks. Discussed with medical team. Supportive care. Thank you for allowing me to participate in the care of the patient, we will follow with you.
[2017-03-24] MEDS: Insulin Lispro (humaLOG) LOW Coverage SC SCH ×4 (00:43→18:24)
[2017-03-24 07:45] LABS: BASO # 0.02 [, K/mm3] (0.0-2.0); BASO % 0.1 % (0.0-3.0); EOS # 0.1 (0.0-0.7); EOS % 0.5 % (1.5-5.0); GRAN # 13.66 (1.4-6.5); GRAN % 83.7 % (50.0-68.0); HEMOGLOBIN 11.8 g/dL (12.0-16.0); LYMPH # 1.7 (1.2-3.4); LYMPH % 10.3 % (22.0-35.0); MEAN CELL VOLUME 97.2 fl (80.0-105.0); MEAN CORPUSCULAR HEMOGLOBIN 29.7 pg (25.0-35.0); MEAN CORPUSCULAR HGB CONC 30.6 g/dl (31.0-37.0); MEAN PLATELET VOLUME 10.2 fl (7.0-11.0); MONO # 0.9 (0.1-0.6); MONO % 5.4 % (1.0-6.0); RBC 3.97 [, 10^6/uL] (3.5-6.1); RED CELL DISTRIBUTION WIDTH 13.2 % (11.5-14.5); WHITE BLOOD COUNT 16.3 [, 10^3/ul] (4.5-11.0)
[2017-03-24 07:50] VITALS: RESP 20
[2017-03-24 08:05] LABS: ALB/GLOB RATIO 0.9 (1.1-1.8); ALBUMIN 3.4 g/dL (3.0-4.8); ALT/SGPT 28 U/L (7-56); AST/SGOT 32 U/L (14-36); BLOOD UREA NITROGEN 18 mg/dL (7-21); CALCIUM 9.6 mg/dL (8.4-10.5); GFR AFRICAN-AMERICAN > 60; GFR NON-AFRICAN AMERICAN > 60
[2017-03-24] MEDS: Levothyroxine 25 MCG TAB PO SCH (08:19)
[2017-03-24] MEDS: Pantoprazole 40 mg EC Tab PO SCH (08:19)
[2017-03-24] MEDS: levoFLOXacin 750 MG TAB PO SCH (10:47)
[2017-03-24] MEDS: Magnesium Oxide 400 mg Tab UD PO SCH ×2 (10:47→18:26)
[2017-03-24] MEDS: Nystatin 100,000 Units/ml Oral Susp 5 ml UD PO SCH ×3 (10:48→18:27)
[2017-03-24] MEDS: Multivitamin Therapeutic Tab PO SCH (10:48)
--- NOTE | 2017-03-24 14:25 | RAD ---
HISTORY: cough COMPARISON: 03/21/2017 FINDINGS: LUNGS: No active pulmonary disease. PLEURA: No significant pleural effusion identified, no pneumothorax apparent. CARDIOVASCULAR: Mild cardiomegaly OSSEOUS STRUCTURES: No significant abnormalities. VISUALIZED UPPER ABDOMEN: Normal. OTHER FINDINGS: None. IMPRESSION: No active disease.
--- NOTE | 2017-03-24 16:11 | PN ---
DATE: 03/24/2017 LOCATION: The patient is in room 567, bed 1. REASON FOR CONSULTATION AND FOLLOWUP: CVA, left-sided weakness. SUBJECTIVE: The patient is lying flat in bed without any cardiac symptoms like chest pain, shortness of breath, or palpitation. PHYSICAL EXAMINATION: VITAL SIGNS: Blood pressure 101/32, respirations 20, pulse 64, and temperature 98.0. HEENT: Normocephalic. Eyes; pupils normal. Conjunctivae slightly pale. NECK: JVP low, carotids equal. THORAX: AP diameter normal. LUNGS: Clear. CARDIOVASCULAR: S1 and S2. ABDOMEN: Soft. No tenderness. No organomegaly. Bowel sounds normal. EXTREMITIES: No clubbing. No cyanosis. LABORATORY DATA: WBC 16.3, hemoglobin 11.8, hematocrit 38.6, and platelet 435. Sodium 142, potassium 3.7, BUN 18, creatinine 0.8, random glucose 159. AST and ALT normal. Total bilirubin and albumin normal. DIAGNOSES: Acute cerebrovascular accident with left-sided upper and lower extremity weakness. CAT scan showed subcortical hemorrhage, small amount subdural blood, hypertension, diabetes, hyperlipidemia, right preference gaze. CAT scan repeated on 03/21/2017, showed stable appearance with small hemorrhage. Evaluation of right-sided infarct, which was more well defined and hypodense on the study of 03/21/2017. PLAN: Continue therapy for blood pressure. The patient is on Cozaar 100 mg daily, clonidine 0.2 mg/24 hours TTS 2 patches q.7 days, losartan 100 mg daily, aspirin 81 mg p.o. daily, Levaquin 750 mg p.o. daily, Lipitor 40 mg daily, metoprolol tartrate 50 mg b.i.d. magnesium oxide 400 mg b.i.d., Protonix 40 mg daily, Synthroid 25 mcg p.o. daily, and zinc sulfate 220 mg p.o. daily. We will continue present therapy and we will follow with you. Hector Hung MD
--- NOTE | 2017-03-24 16:53 | CP.PCM.DIS ---
<AuroraFelicity - Last Filed: 03/24/17 16:50> Provider - Provider Date of Admission: 03/16/17 18:51 Attending physician: Crystal Ovalle MD Consults: Neuro: Giacomo ID: [id number] Cardio: Anabell Palliative care: Paramonte Podiatry: Mateo Time Spent in preparation of Discharge (in minutes): 55 Diagnosis - Discharge Diagnosis (1) Ischemic stroke Status: Acute Priority: High (2) UTI (urinary tract infection) Status: Acute (3) Weakness Status: Acute Hospital Course - Lab Results Lab Results: Micro Results 03/17/17 15:20 Naris MRSA Culture (Admit) - Final MRSA NOT DETECTED Most Recent Lab Values WBC 16.3 10^3/ul (4.5-11.0) H 03/24/17 07:30 RBC 3.97 10^6/uL (3.5-6.1) 03/24/17 07:30 Hgb 11.8 g/dL (12.0-16.0) L 03/24/17 07:30 Hct 38.6 % (36.0-48.0) 03/24/17 07:30 MCV 97.2 fl (80.0-105.0) 03/24/17 07:30 MCH 29.7 pg (25.0-35.0) 03/24/17 07:30 MCHC 30.6 g/dl (31.0-37.0) L 03/24/17 07:30 RDW 13.2 % (11.5-14.5) 03/24/17 07:30 Plt Count 435 10^3/uL (120.0-450.0) 03/24/17 07:30 MPV 10.2 fl (7.0-11.0) 03/24/17 07:30 Gran % 83.7 % (50.0-68.0) H 03/24/17 07:30 Lymph % (Auto) 10.3 % (22.0-35.0) L 03/24/17 07:30 [place] % (Auto) 5.4 % (1.0-6.0) 03/24/17 07:30 Eos % (Auto) 0.5 % (1.5-5.0) L 03/24/17 07:30 Baso % (Auto) 0.1 % (0.0-3.0) 03/24/17 07:30 Gran # 13.66 (1.4-6.5) H 03/24/17 07:30 Lymph # 1.7 (1.2-3.4) 03/24/17 07:30 [place] # 0.9 (0.1-0.6) H 03/24/17 07:30 Eos # 0.1 (0.0-0.7) 03/24/17 07:30 Baso # 0.02 K/mm3 (0.0-2.0) 03/24/17 07:30 PT 11.8 SECONDS (9.4-12.5) 03/16/17 16:25 INR 1.03 (0.93-1.08) 03/16/17 16:25 APTT 29.3 Seconds (25.1-36.5) 03/16/17 16:25 Sodium 142 mmol/L (132-148) 03/24/17 07:30 Potassium 3.7 mmol/L (3.6-5.0) 03/24/17 07:30 Chloride 101 mmol/L (98-107) 03/24/17 07:30 Carbon Dioxide 32 mmol/L (21-33) 03/24/17 07:30 Anion Gap 12 (10-20) 03/24/17 07:30 BUN 18 mg/dL (7-21) 03/24/17 07:30 Creatinine 0.8 mg/dl (0.7-1.2) 03/24/17 07:30 Est GFR ( Amer) > 60 03/24/17 07:30 Est GFR (Non-Af Amer) > 60 03/24/17 07:30 POC Glucose (mg/dL) 129 mg/dL (65-110) H 03/24/17 16:19 Random Glucose 159 mg/dL (70-110) H 03/24/17 07:30 Hemoglobin A1c 8.6 % (4.2-6.5) H D 03/18/17 05:45 Calcium 9.6 mg/dL (8.4-10.5) 03/24/17 07:30 Phosphorus 3.3 mg/dL (2.5-4.5) 03/22/17 05:30 Magnesium 1.9 mg/dL (1.7-2.2) 03/22/17 05:30 Total Bilirubin 0.7 mg/dL (0.2-1.3) 03/24/17 07:30 AST 32 U/L (14-36) 03/24/17 07:30 ALT 28 U/L (7-56) 03/24/17 07:30 Alkaline Phosphatase 65 U/L (38-126) 03/24/17 07:30 Lactate Dehydrogenase 419 U/L (333-699) 03/16/17 16:25 Total Creatine Kinase < 20 U/L (35-230) L 03/16/17 16:25 Troponin I < 0.01 ng/mL 03/16/17 16:25 Total Protein 7.0 g/dL (5.8-8.3) 03/24/17 07:30 Albumin 3.4 g/dL (3.0-4.8) 03/24/17 07:30 Globulin 3.6 gm/dL 03/24/17 07:30 Albumin/Globulin Ratio 0.9 (1.1-1.8) L 03/24/17 07:30 Triglycerides 177 mg/dL (35-160) H 03/17/17 05:30 Cholesterol 167 mg/dL (130-200) 03/17/17 05:30 LDL Cholesterol Direct 117 mg/dL (0-129) 03/17/17 05:30 HDL Cholesterol 24 mg/dL (29-60) L 03/17/17 05:30 Vitamin B12 431 pg/mL (239-931) 03/16/17 21:42 Folate 16.1 ng/mL 03/16/17 21:42 Procalcitonin < 0.05 NG/ML (0.19-0.49) L 03/22/17 09:27 Free T4 1.15 ng/dL (0.78-2.19) 03/16/17 16:30 Total T3 1.11 ng/mL (0.97-1.69) 03/16/17 16:30 TSH 3rd Generation 2.95 mIU/mL (0.46-4.68) 03/16/17 16:30 Urine Color Yellow (YELLOW) 03/21/17 12:50 Urine Appearance Clear (CLEAR) 03/21/17 12:50 Urine pH 6.0 (4.7-8.0) 03/21/17 12:50 Ur Specific [place] 1.025 (1.005-1.035) 03/21/17 12:50 Urine Protein 30 mg/dL (<30 mg/dL) H 03/21/17 12:50 Urine Glucose (UA) 100 mg/dL (NEGATIVE) H 03/21/17 12:50 Urine Ketones Negative mg/dL (NEGATIVE) 03/21/17 12:50 Urine Blood Negative (NEGATIVE) 03/21/17 12:50 Urine Nitrate Negative (NEGATIVE) 03/21/17 12:50 Urine Bilirubin Negative (NEGATIVE) 03/21/17 12:50 Urine Urobilinogen 0.2 E.U./dL (<1 E.U./dL) 03/21/17 12:50 Ur Leukocyte Esterase Trace Chiquis/uL (NEGATIVE) H 03/21/17 12:50 Urine RBC Negative /hpf (0-2) 03/21/17 12:50 Urine WBC 0 - 2 /hpf (0-6) 03/21/17 12:50 Ur Epithelial Cells 6 - 8 /hpf (0-5) 03/21/17 12:50 Amorphous Sediment Moderate 03/16/17 17:00 Urine Bacteria Many (NEG) 03/21/17 12:50 Urine Opiates Screen Negative (NEGATIVE) 03/16/17 17:00 Urine Methadone Screen Negative (NEGATIVE) 03/16/17 17:00 Ur Barbiturates Screen Negative (NEGATIVE) 03/16/17 17:00 Ur Phencyclidine Scrn Negative (NEGATIVE) 03/16/17 17:00 Ur Amphetamines Screen Negative (NEGATIVE) 03/16/17 17:00 U Benzodiazepines Scrn Negative (NEGATIVE) 03/16/17 17:00 U Oth Cocaine Metabols Negative (NEGATIVE) 03/16/17 17:00 U Cannabinoids Screen Negative (NEGATIVE) 03/16/17 17:00 RPR Nonreactive (NONREACTIVE) 03/16/17 21:42 Influenza Typ A,B (EIA) Negative for flu a/b (NEGATIVE) 03/24/17 07:18 - Hospital Course Hospital Course: 82yo female with history of DM type 2, hypertension, hyperlipidemia, hypothyroidism and GERD presents with altered mental status secondary to dementia vs CVA vs delirium due to UTI; code stroke called when patient was noted to have profound left sided weakness, not previously noted. Patient was not a candidate for TPA or thombectomy due to the timeline of her symptoms. Patient was seen by a neurologist and started on an Integrillin drip for 14 hours, followed by loading doses of ASA and Plavix, which were continued with daily doses. Patient unfortunately had development of SAH and hemorrhage in right posterior frontal lobe and right occipital lobe. Throughout admission, patient's mental status was unchanged; she remained awake, alert, and oriented to person, place, and time. She continues to have profound left sided weakness with rightward preferential gaze. Patient was also seen by physical therapy who recommended acute rehab. She was also treated for HTN with conservative BP goals due to the hemorrhage, hyperlipidemia, hypothyroidism, and diabetes. Throughout her admission, patient was noted to have persistently elevated WBC, though recently had uptrend, and was started empirically on a 7 day course of levaquin for UTI. Other possible differentials for the chronically elevated WBC include hematologic malignancy which will require outpatient workup. Today, patient's mental status and neuro exam remain unchanged. Family was at bedside who expressed concerns regarding her placement in acute rehab. Patient was eventually accepted to a facility which they agreed with. All discharge instructions were provided, all questions were answered to patient and family's satisfaction, and patient was discharged to [facility] acute rehab facility. Discharge Exam - Head Exam Head Exam: ATRAUMATIC, NORMOCEPHALIC - Eye Exam Eye Exam: EOMI, Normal appearance, PERRL - ENT Exam ENT Exam: Mucous Membranes Moist - Respiratory Exam Respiratory Exam: Clear to PA & Lateral, NORMAL BREATHING PATTERN, UNREMARKABLE - Cardiovascular Exam Cardiovascular Exam: REGULAR RHYTHM, +S1, +S2 - GI/Abdominal Exam GI & Abdominal Exam: Normal Bowel Sounds, Soft. absent: Tenderness - Extremities Exam Extremities exam: normal inspection - Back Exam Additional comments: Blanchable erythema over sacrum, without skin breakdown - Neurological Exam Neurological exam: Alert, Oriented x3 Additional comments: Motor exam unchanged since yesterday Sensation in left arm unchanged since yesterday - Psychiatric Exam Psychiatric exam: Flat Affect - Skin Skin Exam: Dry, Intact Discharge Plan - Follow Up Plan Condition: FAIR Disposition: HOME/ ROUTINE Instructions: Influenza Virus Vaccine (By injection), Pneumococcal Polyvalent Vaccine (By injection), Urinary Tract Infection in Women (DC), Influenza (DC), Ischemic Stroke (DC), Weakness (GEN) Additional Instructions: Patient is being discharged to [facility] rehab facility for rehabilitation of left sided hemiparesis and left hemineglect. She should continue levaquin for 5 more days, to complete the 7 day course. Referrals: [facility], [Non-Staff] - Crystal Ovalle MD [Staff Provider] - <Crystal Ovalle - Last Filed: 03/24/17 17:43> Provider - Provider Date of Admission: 03/16/17 18:51 Attending physician: Crystal Ovalle MD Hospital Course - Lab Results Lab Results: Micro Results 03/17/17 15:20 Naris MRSA Culture (Admit) - Final MRSA NOT DETECTED Most Recent Lab Values WBC 16.3 10^3/ul (4.5-11.0) H 03/24/17 07:30 RBC 3.97 10^6/uL (3.5-6.1) 03/24/17 07:30 Hgb 11.8 g/dL (12.0-16.0) L 03/24/17 07:30 Hct 38.6 % (36.0-48.0) 03/24/17 07:30 MCV 97.2 fl (80.0-105.0) 03/24/17 07:30 MCH 29.7 pg (25.0-35.0) 03/24/17 07:30 MCHC 30.6 g/dl (31.0-37.0) L 03/24/17 07:30 RDW 13.2 % (11.5-14.5) 03/24/17 07:30 Plt Count 435 10^3/uL (120.0-450.0) 03/24/17 07:30 MPV 10.2 fl (7.0-11.0) 03/24/17 07:30 Gran % 83.7 % (50.0-68.0) H 03/24/17 07:30 Lymph % (Auto) 10.3 % (22.0-35.0) L 03/24/17 07:30 [place] % (Auto) 5.4 % (1.0-6.0) 03/24/17 07:30 Eos % (Auto) 0.5 % (1.5-5.0) L 03/24/17 07:30 Baso % (Auto) 0.1 % (0.0-3.0) 03/24/17 07:30 Gran # 13.66 (1.4-6.5) H 03/24/17 07:30 Lymph # 1.7 (1.2-3.4) 03/24/17 07:30 [place] # 0.9 (0.1-0.6) H 03/24/17 07:30 Eos # 0.1 (0.0-0.7) 03/24/17 07:30 Baso # 0.02 K/mm3 (0.0-2.0) 03/24/17 07:30 PT 11.8 SECONDS (9.4-12.5) 03/16/17 16:25 INR 1.03 (0.93-1.08) 03/16/17 16:25 APTT 29.3 Seconds (25.1-36.5) 03/16/17 16:25 Sodium 142 mmol/L (132-148) 03/24/17 07:30 Potassium 3.7 mmol/L (3.6-5.0) 03/24/17 07:30 Chloride 101 mmol/L (98-107) 03/24/17 07:30 Carbon Dioxide 32 mmol/L (21-33) 03/24/17 07:30 Anion Gap 12 (10-20) 03/24/17 07:30 BUN 18 mg/dL (7-21) 03/24/17 07:30 Creatinine 0.8 mg/dl (0.7-1.2) 03/24/17 07:30 Est GFR ( Amer) > 60 03/24/17 07:30 Est GFR (Non-Af Amer) > 60 03/24/17 07:30 POC Glucose (mg/dL) 129 mg/dL (65-110) H 03/24/17 16:19 Random Glucose 159 mg/dL (70-110) H 03/24/17 07:30 Hemoglobin A1c 8.6 % (4.2-6.5) H D 03/18/17 05:45 Calcium 9.6 mg/dL (8.4-10.5) 03/24/17 07:30 Phosphorus 3.3 mg/dL (2.5-4.5) 03/22/17 05:30 Magnesium 1.9 mg/dL (1.7-2.2) 03/22/17 05:30 Total Bilirubin 0.7 mg/dL (0.2-1.3) 03/24/17 07:30 AST 32 U/L (14-36) 03/24/17 07:30 ALT 28 U/L (7-56) 03/24/17 07:30 Alkaline Phosphatase 65 U/L (38-126) 03/24/17 07:30 Lactate Dehydrogenase 419 U/L (333-699) 03/16/17 16:25 Total Creatine Kinase < 20 U/L (35-230) L 03/16/17 16:25 Troponin I < 0.01 ng/mL 03/16/17 16:25 Total Protein 7.0 g/dL (5.8-8.3) 03/24/17 07:30 Albumin 3.4 g/dL (3.0-4.8) 03/24/17 07:30 Globulin 3.6 gm/dL 03/24/17 07:30 Albumin/Globulin Ratio 0.9 (1.1-1.8) L 03/24/17 07:30 Triglycerides 177 mg/dL (35-160) H 03/17/17 05:30 Cholesterol 167 mg/dL (130-200) 03/17/17 05:30 LDL Cholesterol Direct 117 mg/dL (0-129) 03/17/17 05:30 HDL Cholesterol 24 mg/dL (29-60) L 03/17/17 05:30 Vitamin B12 431 pg/mL (239-931) 03/16/17 21:42 Folate 16.1 ng/mL 03/16/17 21:42 Procalcitonin < 0.05 NG/ML (0.19-0.49) L 03/22/17 09:27 Free T4 1.15 ng/dL (0.78-2.19) 03/16/17 16:30 Total T3 1.11 ng/mL (0.97-1.69) 03/16/17 16:30 TSH 3rd Generation 2.95 mIU/mL (0.46-4.68) 03/16/17 16:30 Urine Color Yellow (YELLOW) 03/21/17 12:50 Urine Appearance Clear (CLEAR) 03/21/17 12:50 Urine pH 6.0 (4.7-8.0) 03/21/17 12:50 Ur Specific [place] 1.025 (1.005-1.035) 03/21/17 12:50 Urine Protein 30 mg/dL (<30 mg/dL) H 03/21/17 12:50 Urine Glucose (UA) 100 mg/dL (NEGATIVE) H 03/21/17 12:50 Urine Ketones Negative mg/dL (NEGATIVE) 03/21/17 12:50 Urine Blood Negative (NEGATIVE) 03/21/17 12:50 Urine Nitrate Negative (NEGATIVE) 03/21/17 12:50 Urine Bilirubin Negative (NEGATIVE) 03/21/17 12:50 Urine Urobilinogen 0.2 E.U./dL (<1 E.U./dL) 03/21/17 12:50 Ur Leukocyte Esterase Trace Chiquis/uL (NEGATIVE) H 03/21/17 12:50 Urine RBC Negative /hpf (0-2) 03/21/17 12:50 Urine WBC 0 - 2 /hpf (0-6) 03/21/17 12:50 Ur Epithelial Cells 6 - 8 /hpf (0-5) 03/21/17 12:50 Amorphous Sediment Moderate 03/16/17 17:00 Urine Bacteria Many (NEG) 03/21/17 12:50 Urine Opiates Screen Negative (NEGATIVE) 03/16/17 17:00 Urine Methadone Screen Negative (NEGATIVE) 03/16/17 17:00 Ur Barbiturates Screen Negative (NEGATIVE) 03/16/17 17:00 Ur Phencyclidine Scrn Negative (NEGATIVE) 03/16/17 17:00 Ur Amphetamines Screen Negative (NEGATIVE) 03/16/17 17:00 U Benzodiazepines Scrn Negative (NEGATIVE) 03/16/17 17:00 U Oth Cocaine Metabols Negative (NEGATIVE) 03/16/17 17:00 U Cannabinoids Screen Negative (NEGATIVE) 03/16/17 17:00 RPR Nonreactive (NONREACTIVE) 03/16/17 21:42 Influenza Typ A,B (EIA) Negative for flu a/b (NEGATIVE) 03/24/17 07:18 Attending/Attestation - Attestation I have personally seen and examined this patient.: Yes I have fully participated in the care of the patient.: Yes I have reviewed all pertinent clinical information, including history, physical exam and plan: Yes Notes (Text): I have seen and examined the patient with the resident. Agree with the above note with the following additions/ exceptions: Briefly this is 82 year old female with history of DM, HTN, hyperlipidemia, hypothyroidism and gastroesophageal reflux disease who was admitted for altered mental status, noted to have left hemiplegia, right preference gaze and found to have MCA infarct. CT angios showed acute thrombus. Repeat CT revealed hemorrhagic stroke. Neuro on board. Continue aspirin and lipitor. Patient need repositioning frequently. Recommend air mattress. Continue vitamin C, MVI and zinc sulfate. She is awake, alert and oriented. Denies any complaints. Patients son and daughter in law at bedside. PT recommended acute rehab. Awaiting placement. Discussed with speech therapist. Continue puree diet. Of note, patient had leukocytosis in the past and for that she made an appointment to see Dr Wan however patient did not have complete work up. Advised family to follow up with Dr Wan outpatient. Urine culture negative. Procal negative. Will stop levaquin as all cultures are negative. Procal is negative as well. Upon discharge patient will follow up with PMD of choice. Dr Crystal Ovalle
--- NOTE | 2017-03-24 17:58 | CP.PCM.PN ---
Subjective - Date & Time of Evaluation Date of Evaluation: 03/24/17 Time of Evaluation: 16:30 - Subjective Subjective: Infectious Disease Follow Up: March 24, 2017 Patient is a 82yo female with past medical history of diabetes mellitus type 2, hypertension, hyperlipidemia, hypothyroidism and GERD that presents accompanied by family with reports of increased lethargy, weakness and altered mental status. Per patients son, over the course of the last couple months family had noticed a change in her personality and having become more forgetful as of late. Additionally, over the last several days patient had been bed bound, unable to care for herself and has had a lack of appetite. Family reports that she had been to her PMD, Dr. Head several weeks prior and was reportedly treated for a UTI. She had also been scheduled to see Dr. Wan (hematology/ oncology) for workup of possible leukemia. Family reported that when they came to visit today she appeared confused, weak and lethargic which prompted their visit to the emergency room. Patient denied chest pain, palpitations, SOB, abdominal pain, nausea, vomiting, fever, chills, cough. Diagnosed with stroke. The patient with left sided weakness/flaccid paresis, left hemineglect, and facial droop. Recently treated for a UTI. She appears awake and alert. Leukocytosis remains elevated. No obvious infectious etiology found at this time. Clinically the patient has been slowly improving from her initial admission for stroke. Silva cultures and urine cultures sent. Procalcitonin remains low. Objective - Vital Signs/Intake and Output Vital Signs (last 24 hours): Temp Pulse Resp BP Pulse Ox 98.0 F 75 20 142/57 L 94 L 03/24/17 07:30 03/24/17 10:46 03/24/17 07:30 03/24/17 10:46 03/24/17 07:30 Intake and Output: 03/24/17 03/24/17 06:59 18:59 Intake Total 120 Output Total 320 Balance -200 - Medications Medications: Current Medications Aspirin (Ecotrin) 81 mg PO DAILY [facility] Last Admin: 03/24/17 10:48 Dose: 81 mg Atorvastatin Calcium (Lipitor) 40 mg PO DAILY [facility] Last Admin: 03/24/17 10:47 Dose: 40 mg Clonidine HCl (Catapres-Tts2 0.2 Mg/24 Hr) 1 patch TD Q7D@1000 [facility] Last Admin: 03/20/17 13:48 Dose: 1 patch Hydralazine HCl (Apresoline) 10 mg IVP Q6 PRN PRN Reason: Systolic Blood Pressure Last Admin: 03/22/17 05:33 Dose: 10 mg Insulin Human Lispro (Humalog Low) 0 units SC ACHS [facility] PRN Reason: Protocol Last Admin: 03/24/17 11:47 Dose: 1 units Levofloxacin (Levaquin) 750 mg PO DAILY [facility] Stop: 03/27/17 13:46 Last Admin: 03/24/17 10:47 Dose: 750 mg Levothyroxine Sodium (Synthroid) 25 mcg PO ACB [facility] Last Admin: 03/24/17 08:19 Dose: 25 mcg Losartan Potassium (Cozaar) 100 mg PO DAILY [facility] Last Admin: 03/24/17 10:47 Dose: 100 mg Magnesium Oxide (Mag-Ox) 400 mg PO BID [facility] Last Admin: 03/24/17 10:47 Dose: 400 mg Metoprolol Tartrate (Lopressor) 50 mg PO BID [facility] Last Admin: 03/24/17 10:46 Dose: 50 mg Multivitamins (Thera Tab) 1 tab PO DAILY [facility] Last Admin: 03/24/17 10:48 Dose: 1 tab Nystatin (Nystatin Oral Susp) 5 ml PO QID [facility] Last Admin: 03/24/17 15:15 Dose: 5 ml Pantoprazole Sodium (Protonix Ec Tab) 40 mg PO ACB [facility] Last Admin: 03/24/17 08:19 Dose: 40 mg Zinc Sulfate (Zinc Sulfate 220 Mg Cap) 220 mg PO DAILY [facility] Last Admin: 03/24/17 10:47 Dose: 220 mg - Labs Labs: 03/24/17 07:30 03/24/17 07:30 PT 11.8 SECONDS (9.4-12.5) 03/16/17 16:25 INR 1.03 (0.93-1.08) 03/16/17 16:25 APTT 29.3 Seconds (25.1-36.5) 03/16/17 16:25 - Constitutional Appears: Non-toxic, No Acute Distress, Chronically Ill - Head Exam Head Exam: ATRAUMATIC, NORMOCEPHALIC - Eye Exam Additional comments: Rightward preferential gaze. Able to track fingers to the left past midline. - ENT Exam ENT Exam: Mucous Membranes Moist, Normal External Ear Exam, TM's Normal Bilaterally - Neck Exam Neck Exam: Normal Inspection - Respiratory Exam Respiratory Exam: Clear to Ausculation Bilateral, NORMAL BREATHING PATTERN. absent: Rales, Rhonchi, Wheezes - Cardiovascular Exam Cardiovascular Exam: REGULAR RHYTHM, RRR, +S1, +S2 - GI/Abdominal Exam GI & Abdominal Exam: Soft, Normal Bowel Sounds. absent: Distended, Tenderness - Extremities Exam Extremities Exam: absent: Joint Swelling, Pedal Edema - Neurological Exam Neurological Exam: Alert, Awake, Oriented x3 Neuro motor strength exam: Left Upper Extremity: 0, Right Upper Extremity: 5, Left Lower Extremity: 0, Right Lower Extremity: 5 - Psychiatric Exam Psychiatric exam: Flat Affect - Skin Skin Exam: Dry, Intact Assessment and Plan - Assessment and Plan (Free Text) Assessment: 82 yo female with CVA initially with no infectious etiology when first seen in the MICU. The patient has had poor recovery of the neurological functions of the patient's left side. The patient has had a slowly progressive WBC improved to 16.3 from 17.8. No fevers or chills. Cannot rule out viral etiology and would retest for Influenza. Would also investigate for any progression of the CVA. Monitor WBC and the differential. Silva cultures. Low procalcitonin on two checks. Discussed with medical team. Supportive care. Thank you for allowing me to participate in the care of the patient, we will follow with you.
[2017-03-24 18:27] VITALS: BP 133/61; PULSE 73
[2017-03-24 19:13] VITALS: TEMP 99.5; O2SAT 91
== END 2017-03-24 21:08 | DRG 64 ==
LOC: ED 14:50 → ERH 18:51 → 2A 03-17 09:35 → ICU 03-17 14:32 → 5RNO 03-23 15:14
PROVIDERS: ADMIT Internal Medicine; ATTEND Hospitalist
DX: I63.511 Cerebral infarction due to unspecified occlusion or stenosis of right middle cerebral artery (principal); I61.0 Nontraumatic intracerebral hemorrhage in hemisphere, subcortical; L89.151 Pressure ulcer of sacral region, stage 1; N39.0 Urinary tract infection, site not specified; G81.94 Hemiplegia, unspecified affecting left nondominant side; R41.4 Neurologic neglect syndrome; E11.9 Type 2 diabetes mellitus without complications; E03.9 Hypothyroidism, unspecified; K21.9 Gastro-esophageal reflux disease without esophagitis; E78.00 Pure hypercholesterolemia, unspecified; I10 Essential (primary) hypertension; R29.712 NIHSS score 12; E87.6 Hypokalemia; Z87.440 Personal history of urinary (tract) infections; Z87.891 Personal history of nicotine dependence